=== PATIENT | male | born 1955 | race American Indian/Alaskan Native ===

== ENCOUNTER 2017-02-22 08:15 | Inpatient (IN) | payer MEDICAID ==
--- NOTE | 2017-02-22 08:46 | XRay Report ---
AP CHEST: HISTORY: Dysrhythmia Borderline cardiomegaly and single-lead pacemaker are unchanged since 10/20/15. There is normal pulmonary vascularity. The lungs are clear. The bony thorax is intact. IMPRESSION: Borderline heart size. Lungs clear.
[2017-02-22 09:05] LABS: Basophils % (Auto) 0.9 % (0.0-1.8); Eosinophils % (Auto) 3.4 % (0.0-4.3); Hematocrit 42.3 % (35.5-45.6); Hemoglobin 13.6 gm/dl (11.8-15.2); Mean Corpuscular HGB Conc 32 % (32-34); Mean Corpuscular Hemoglobin 28 pg (28-32); Mean Corpuscular Volume 88 fl (84-94); Platelet Count 149 K/mm3 (140-440); Red Blood Count 4.84 M/mm3 (3.65-5.03); Red Cell Distribution Width 13.3 % (13.2-15.2); White Blood Count 5.5 K/mm3 (4.5-11.0)
[2017-02-22 09:23] LABS: Anion Gap 19 mmol/L; BUN/Creatinine Ratio 13.75; Blood Urea Nitrogen 22 mg/dL (9-20); Calcium 8.9 mg/dL (8.4-10.2); Carbon Dioxide 20 mmol/L (22-30); Chloride 101.8 mmol/L (98-107); Glucose 350 mg/dL (75-100); Magnesium 1.6 mg/dL (1.7-2.3); Potassium 3.9 mmol/L (3.6-5.0); Sodium 137 mmol/L (137-145)
--- NOTE | 2017-02-22 10:44 | Admit Criteria Form ---
Admission Criteria Documentation: TELEMETRY CARE Telemetry Admission Guidelines (Place 'X' for any and all applicable criteria): Admission to telemetry [A] may be indicated for ANY ONE of the following(1)(2)(3 )(4)(5): [X ]I. Cardiac disease, including ANY ONE of the following (9)(10)(11)(12)( 13): [ ]a) Postacute ID [ ]b) Low-risk patients with ST-segment elevation ID who have undergone successful percutaneous coronary intervention [ ]c) Unstable angina [ ]d) Suspected ID (until it is ruled out) [ ]e) Post cardiac surgery (first 48 to 72 hours unless complications occur) [ X]f) Acute arrhythmias (including significant tachycardia or bradycardia) [B] [X ]g) Firing of an implantable cardioverter defibrillator [C] [ ]h) Suspected pacemaker or implantable cardioverter defibrillator malfunction (10) [ ]i) New administration or adjustment of an antiarrhythmic drug [D ] [ ]j) Child admitted for acute congestive heart failure [ ]j) Long QT syndrome [ ]k) Advanced heart block (eg, second-degree Mobitz type II, third- degree heart block) [ ]l) Acute myocarditis or pericarditis [ ]m) Short-term (ambulatory or inpatient) monitoring after a cardiac procedure as indicated by ANY ONE of the following [E]: [ ]i) Electrophysiologic studies [ ]ii) Percutaneous coronary intervention with stent placement [ ]iii) Pacemaker placement with cardiac conduction defect [ ]iv) Implantable cardiac defibrillator placement [ ]II. Drug overdose or poisoning with substance that causes arrhythmias or QT prolongation (eg, phenothiazines, sympathomimetic agents, cyclic antidepressants, digitalis, antiarrhythmic drugs)(15) [ ]III. Short-term (ambulatory or inpatient) monitoring after therapeutic or diagnostic procedure requiring conscious sedation or anesthesia (eg, endoscopy, elective cardioversion) [ ]IV. Acute cerebrovascular even[F](18) [ ]V. Massive blood transfusion (eg, at least 10 units of packed red blood cells in 24 hours) [ ]. Variceal bleeding after endoscopy, sclerotherapy, or IV vasopressin [ ]VII. Uncorrected electrolyte abnormalities associated with an increased risk of dangerous arrhythmia [G]; examples include [ ]a) Hyperkalemia with attributable ECG changes [ ]b) Potassium greater than 6.5 mmol/L (mEq/L) in a patient without history of chronic renal disease [ ]c) Prolonged QT attributed to hypokalemia, hypomagnesemia, or hypocalcemia [ ]VIII.Unexplained syncope or other neurologic event suspected of being due to arrhythmia due to a finding that increases risk; examples include(19)(20)(21): [ ]a) High-risk ECG findings (eg, bifascicular block, bradycardia, abnormal QT interval, ventricular pre- excitation) [ ]b) History of previous syncope due to arrhythmia [ ]c) Abnormal ventricular function (eg, reduced ejection fraction ) [ ]d) Exertional or supine syncope [ ]e) Concerning syncope characteristics (eg, sudden loss of consciousness without prodrome) [ ]f) Family history of sudden [ ]g) Use of arrhythmogenic medication [ ]h) Suspected cardiac ischemia [ ]i) Known channelopathy (eg, long QT syndrome, Brugada syndrome, or catecholaminergic paroxysmal ventricular tachycardia) [ ]j) Known structural heart disease (eg, hypertrophic cardiomyopathy , severe valvular disease) [ ]k) Palpitations preceding syncope The original [employer] content created by [employer] has been revised. The portions of the content which have been revised are identified through the use of italic text or in bold, and [employer] [facility] [employer] has neither reviewed nor approved the modified material. All other unmodified content is copyright [employer]. Please see references footnoted in the original [employer] edition 2016 Admission Criteria Met: Yes
--- NOTE | 2017-02-22 10:56 | Emergency Department Report ---
ED Palpitations HPI - General Chief Complaint: Dizziness Stated Complaint: SOB Time Seen by Provider: 02/22/17 08:27 Source: patient, EMS Mode of arrival: Stretcher Limitations: No Limitations - History of Present Illness Initial Comments: 61-year-old male presented to the emergency department via EMS for evaluation of his defibrillator shocking him. Patient states that this morning an approximate 7 AM he walked his granddaughter to the school bus stop. He began having some dizziness and difficulty breathing. He was able to go back inside. He states he sat on the couch and was shocked one time. He denies chest pain or palpitations. He states after he was shocked, his symptoms completely resolved. He has no complaints at this time. -: Sudden, This morning Context: AICD discharge Arrythmia History: atrial fibrillation, AICD Associated Symptoms: shortness of breath, near-syncope - Related Data Previous Rx's Medication Instructions Recorded Last Taken Type Aspirin [Aspirin BABY CHEW TAB] 81 mg PO QDAY #30 tab.chew 10/17/15 Unknown Rx Carvedilol [Coreg] 25 mg PO BID #60 tablet 10/17/15 Unknown Rx Furosemide [Lasix TAB] 40 mg PO 0600,1800 #60 tablet 10/17/15 Unknown Rx Lisinopril [Zestril TAB] 40 mg PO QDAY #30 tablet 10/17/15 Unknown Rx Multivit-Min/Iron Fum/Folic AC 1 each PO QDAY #30 tablet 10/17/15 Unknown Rx [Ysvxn-Eqcblzv-Hosgrurd Tablet] Spironolactone [Aldactone] 50 mg PO QDAY #30 tablet 10/17/15 Unknown Rx Colchicine [Colcrys] 0.6 mg PO DAILY #4 tablet 11/21/15 Unknown Rx Oxycodone HCl/Acetaminophen 1 each PO Q6HR PRN #15 tablet 11/21/15 Unknown Rx [Percocet 7.5/325 mg] Cyclobenzaprine HCl [Flexeril 5 MG 5 mg PO TID #12 tab 05/04/16 Unknown Rx TAB] Naproxen [Naprosyn TAB] 375 mg PO BID #20 tablet 05/04/16 Unknown Rx Allergies Allergy/AdvReac Type Severity Reaction Status Date / Time Penicillins AdvReac Unknown Verified 11/21/15 12:23 ED Review of Systems ROS: Stated complaint: SOB Other details as noted in HPI Comment: All other systems reviewed and negative Respiratory: shortness of breath Cardiovascular: syncope (dizziness, no loss of consciousness) ED Past Medical Hx - Past Medical History Previous Medical History?: Yes Hx Hypertension: Yes Hx Congestive Heart Failure: Yes Hx Diabetes: Yes Hx Renal Disease: Yes - Surgical History Past Surgical History?: Yes Hx Internal Defibrillator: Yes Additional Surgical History: HERNIA REPAIR - Family History Family history: no significant - Social History Smoking Status: Never Smoker Substance Use Type: None - Medications Home Medications: Home Medications Medication Instructions Recorded Confirmed Last Taken Type Aspirin [Aspirin BABY CHEW TAB] 81 mg PO QDAY #30 tab.chew 10/17/15 Unknown Rx Carvedilol [Coreg] 25 mg PO BID #60 tablet 10/17/15 Unknown Rx Furosemide [Lasix TAB] 40 mg PO 0600,1800 #60 tablet 10/17/15 Unknown Rx Lisinopril [Zestril TAB] 40 mg PO QDAY #30 tablet 10/17/15 Unknown Rx Multivit-Min/Iron Fum/Folic AC 1 each PO QDAY #30 tablet 10/17/15 Unknown Rx [Ozhtx-Drqltwj-Kakqnniq Tablet] Spironolactone [Aldactone] 50 mg PO QDAY #30 tablet 10/17/15 Unknown Rx Colchicine [Colcrys] 0.6 mg PO DAILY #4 tablet 11/21/15 Unknown Rx Oxycodone HCl/Acetaminophen 1 each PO Q6HR PRN #15 tablet 11/21/15 Unknown Rx [Percocet 7.5/325 mg] Cyclobenzaprine HCl [Flexeril 5 MG 5 mg PO TID #12 tab 05/04/16 Unknown Rx TAB] Naproxen [Naprosyn TAB] 375 mg PO BID #20 tablet 05/04/16 Unknown Rx ED Physical Exam - General Limitations: No Limitations General appearance: alert, in no apparent distress - Head Head exam: Present: atraumatic, normocephalic - Eye Eye exam: Present: normal appearance, PERRL, EOMI - ENT ENT exam: Present: normal exam, normal orophraynx, mucous membranes moist - Neck Neck exam: Present: normal inspection, full ROM. Absent: tenderness - Respiratory Respiratory exam: Present: normal lung sounds bilaterally. Absent: respiratory distress - Cardiovascular Cardiovascular Exam: Present: tachycardia, irregular rhythm, normal heart sounds - GI/Abdominal GI/Abdominal exam: Present: soft, normal bowel sounds. Absent: distended, tenderness - Extremities Exam Extremities exam: Present: normal inspection, full ROM. Absent: tenderness - Back Exam Back exam: Present: normal inspection, full ROM. Absent: tenderness - Neurological Exam Neurological exam: Present: alert, oriented X3. Absent: motor sensory deficit - Skin Skin exam: Present: warm, dry, intact ED Course Vital Signs 02/22/17 02/22/17 02/22/17 08:29 08:40 09:00 Temperature 98.2 F Pulse Rate 150 H 105 H 97 H Respiratory 18 16 18 Rate Blood Pressure 159/118 Blood Pressure 138/87 148/95 [Left] O2 Sat by Pulse 100 100 Oximetry 02/22/17 02/22/17 10:00 10:08 Temperature 98 F Pulse Rate 99 H 99 H Respiratory 18 Rate Blood Pressure Blood Pressure 157/117 [Left] O2 Sat by Pulse 97 Oximetry ED Medical Decision Making - Lab Data Result diagrams: 02/22/17 08:47 02/22/17 08:47 - EKG Data -: EKG Interpreted by Me EKG shows normal: axis, intervals, QRS complexes, ST-T waves Rate: tachycardia - EKG Data When compared to previous EKG there are: previous EKG unavailable Interpretation: other (atrial fibrillation with rapid ventricular response) - Medical Decision Making Lab results reviewed. Patient's ICD has been interrogated and reveals the patient had a single ICD discharge for a supraventricular tachycardia with a rate slightly over 200. It appears there were also several attempts at overdrive pacing. This was discussed with the on-call provider for [facility]. Patient is to be admitted by the hospitalist for observation. - Differential Diagnosis supraventricular tachycardia, ventricular tachycardia, atrial fibrillation Critical care attestation.: If time is entered above; I have spent that time in minutes in the direct care of this critically ill patient, excluding procedure time. ED Disposition Clinical Impression: Supraventricular tachycardia, AICD discharge Disposition: OP ADMITTED IP TO THIS HOSP Is pt being admited?: Yes Condition: Stable Referrals: PRIMARY CARE, [Primary Care Provider] - 3-5 Days Time of Disposition: 10:57
[2017-02-22] MEDS ORDERED: NON-FORMULARY (Oxycodone Hcl/Acetaminophen [Percocet 7.5/325 Mg] 1 EACH) PO PRN (12:19)
[2017-02-22] MEDS ORDERED: TYLENOL PO PRN (12:21)
[2017-02-22] MEDS ORDERED: MILK OF MAGNESIA PO PRN (12:21)
[2017-02-22] MEDS ORDERED: ZOFRAN IV PRN (12:21)
[2017-02-22] MEDS ORDERED: DULCOLAX PR PRN (12:21)
[2017-02-22] MEDS ORDERED: D50W (25GM) IV PRN (12:22)
--- NOTE | 2017-02-22 12:28 | History and Physical Report ---
History of Present Illness Date of admission: 02/22/17 11:07 Chief complaint: AICD fired and shocked him History of present illness: 61-year-old man with a past medical history of CHF, systolic, EF of 10% status post AICD placement, who states that he had walked his granddaughter to the bus stop at around 7 AM and shortly after walking back he felt dizzy short of breath and his AICD fired and shocked him. This prompted him to come into the ER, he denies chest pain, denies palpitations, denies shortness of breath at this time. Past History Past Medical History: other (hypertension, diabetes, gallops, CHF EF 10% status post AICD, CTD stage III Baseline creatinine of 1.6) Past Surgical History: hernia repair, Other (ICD placements) Social history: no significant social history Family history: hypertension Medications and Allergies Allergies Allergy/AdvReac Type Severity Reaction Status Date / Time Penicillins AdvReac Unknown Verified 11/21/15 12:23 Home Medications Medication Instructions Recorded Confirmed Last Taken Type Aspirin [Aspirin BABY CHEW TAB] 81 mg PO QDAY #30 tab.chew 10/17/15 Unknown Rx Carvedilol [Coreg] 25 mg PO BID #60 tablet 10/17/15 Unknown Rx Furosemide [Lasix TAB] 40 mg PO 0600,1800 #60 tablet 10/17/15 Unknown Rx Lisinopril [Zestril TAB] 40 mg PO QDAY #30 tablet 10/17/15 Unknown Rx Multivit-Min/Iron Fum/Folic AC 1 each PO QDAY #30 tablet 10/17/15 Unknown Rx [Syxwc-Pnlnbiu-Rgdemmcq Tablet] Spironolactone [Aldactone] 50 mg PO QDAY #30 tablet 10/17/15 Unknown Rx Colchicine [Colcrys] 0.6 mg PO DAILY #4 tablet 11/21/15 Unknown Rx Oxycodone HCl/Acetaminophen 1 each PO Q6HR PRN #15 tablet 11/21/15 Unknown Rx [Percocet 7.5/325 mg] Cyclobenzaprine HCl [Flexeril 5 MG 5 mg PO TID #12 tab 05/04/16 Unknown Rx TAB] Naproxen [Naprosyn TAB] 375 mg PO BID #20 tablet 05/04/16 Unknown Rx Active Meds: Active Medications Aspirin (Baby Aspirin) 81 mg PO QDAY [facility] Carvedilol (Coreg) 25 mg PO BID [facility] Colchicine (Colcrys) 0.6 mg PO DAILY [facility] Furosemide (Lasix) 40 mg PO 0600,1800 [facility] Lisinopril (Zestril) 40 mg PO QDAY [facility] Miscellaneous Medication (Cyclobenzaprine Hcl [Flexeril 5 Mg Tab]) 5 mg PO TID [facility] Miscellaneous Medication (Multivit-Min/Iron Fum/Folic Ac [Multi-Vitamin- Minerals Tablet]) 1 each PO QDAY [facility] Miscellaneous Medication (Oxycodone Hcl/Acetaminophen [Percocet 7.5/325 Mg]) 1 each PO Q6HR PRN PRN Reason: Pain Spironolactone (Aldactone) 50 mg PO QDAY [facility] Review of Systems All systems: negative Constitutional: weakness Exam - Constitutional Vitals: Temp Pulse Resp BP Pulse Ox 98 F 99 H 18 157/117 97 02/22/17 10:00 02/22/17 10:08 02/22/17 10:00 02/22/17 10:00 02/22/17 10:00 General appearance: Present: no acute distress, well-nourished - EENT Eyes: Present: PERRL ENT: hearing intact, clear oral mucosa - Neck Neck: Present: supple, normal ROM - Respiratory Respiratory effort: normal Respiratory: bilateral: CTA - Cardiovascular Heart Sounds: Present: S1 & S2. Absent: rub, click - Extremities Extremities: pulses symmetrical Extremity abnormal: edema (3 plus pitting bilateral bipedal edema) Peripheral Pulses: within normal limits - Abdominal General gastrointestinal: Present: soft, non-tender, non-distended, normal bowel sounds Male genitourinary: Present: normal - Integumentary Integumentary: Present: clear, warm, dry (chronic skin changes consistent with chronic stasis) - Musculoskeletal Musculoskeletal: gait normal, strength equal bilaterally - Psychiatric Psychiatric: appropriate mood/affect, intact judgment & insight - Neurologic Neurologic: CNII-XII intact, moves all extremities Results - Labs CBC & Chem 7: 02/22/17 08:47 02/22/17 08:47 Labs: Laboratory Last Values WBC 5.5 K/mm3 (4.5-11.0) 02/22/17 08:47 RBC 4.84 M/mm3 (3.65-5.03) 02/22/17 08:47 Hgb 13.6 gm/dl (11.8-15.2) 02/22/17 08:47 Hct 42.3 % (35.5-45.6) 02/22/17 08:47 MCV 88 fl (84-94) 02/22/17 08:47 MCH 28 pg (28-32) 02/22/17 08:47 MCHC 32 % (32-34) 02/22/17 08:47 RDW 13.3 % (13.2-15.2) 02/22/17 08:47 Plt Count 149 K/mm3 (140-440) 02/22/17 08:47 Lymph % (Auto) 24.2 % (13.4-35.0) 02/22/17 08:47 Todd % (Auto) 9.0 % (0.0-7.3) H 02/22/17 08:47 Eos % (Auto) 3.4 % (0.0-4.3) 02/22/17 08:47 Baso % (Auto) 0.9 % (0.0-1.8) 02/22/17 08:47 Lymph # 1.3 K/mm3 (1.2-5.4) 02/22/17 08:47 Todd # 0.5 K/mm3 (0.0-0.8) 02/22/17 08:47 Eos # 0.2 K/mm3 (0.0-0.4) 02/22/17 08:47 Baso # 0.1 K/mm3 (0.0-0.1) 02/22/17 08:47 Seg Neutrophils % 62.5 % (40.0-70.0) 02/22/17 08:47 Seg Neutrophils # 3.4 K/mm3 (1.8-7.7) 02/22/17 08:47 Sodium 137 mmol/L (137-145) 02/22/17 08:47 Potassium 3.9 mmol/L (3.6-5.0) 02/22/17 08:47 Chloride 101.8 mmol/L (98-107) 02/22/17 08:47 Carbon Dioxide 20 mmol/L (22-30) L 02/22/17 08:47 Anion Gap 19 mmol/L 02/22/17 08:47 BUN 22 mg/dL (9-20) H 02/22/17 08:47 Creatinine 1.6 mg/dL (0.8-1.5) H 02/22/17 08:47 Estimated GFR 54 ml/min 02/22/17 08:47 BUN/Creatinine Ratio 13.75 % 02/22/17 08:47 Glucose 350 mg/dL (75-100) H 02/22/17 08:47 Calcium 8.9 mg/dL (8.4-10.2) 02/22/17 08:47 Magnesium 1.6 mg/dL (1.7-2.3) L 02/22/17 08:47 Troponin T < 0.010 ng/mL (0.00-0.029) 02/22/17 08:47 - Imaging and Cardiology Chest x-ray: image reviewed (no acute abnormalities) Assessment and Plan Assessment and plan: 61-year-old man with a past medical history of CHF status post ICD placement, who presents after having shortness of breath, dizziness and his AICD shocked him. He was found to be in A. fib with RVR. ICD was interrogated and showed a an episode of SVT with a heart rate over 200 which correlated with the time he was shocked. 1. A. fib with RVR Continue beta anuja, cardiology has been consulted for further management 2. CHF, chronic systolic at baseline, has baseline LE edema, not in exacerbation, continue chronic cardiac meds 3. Diabetes with hyperglycemia not on any meds or insulin at home Insulin sliding scale has been ordered, obtain a1c 4. Gout Continue colchicine 5. Hypertension Continue home meds 6. Hypomagnesemia Goal is to correct his electrolytes prevent any further dysrhythmia, we'll replete magnesium IV and by mouth recheck level in the a.m. Plan of care discussed with patient/family: Yes
[2017-02-22] MEDS ORDERED: NON-FORMULARY (Multivit-Min/Iron Fum/Folic Ac [Multi-Vitamin-Minerals Tablet] 1 EACH) PO SCH (12:30)
[2017-02-22] MEDS ORDERED: MAGNESIUM SULFATE 2GM/50ML 2 GM/50 ML BAG IV ONE (13:30)
[2017-02-22] MEDS ORDERED: NON-FORMULARY (Cyclobenzaprine Hcl [Flexeril 5 Mg Tab] 5 MG) PO SCH (14:00)
[2017-02-22] MEDS: FLEXERIL PO SCH ×2 (14:46→20:27)
[2017-02-22] MEDS: ZESTRIL PO SCH (14:46)
--- NOTE | 2017-02-22 14:54 | Consultation ---
History of Present Illness Consult date: 02/22/17 Consult reason: other (ICD discharge) History of present illness: This is a 61yr old male with a remote history of Dilated Cardiomyopathy. A cardiac cath done in 2012 showed no significant coronary artery disease but a left ventricular ejection fraction of 20% consistent with a nonischemic cardiomyopathy. He also has an indwelling cardiac defibrillator ([employer]). Co-morbidities includes Hypertension, and noncompliance with medications and outpatient cardiac follow up. He presents to the ED with chief complaint of ICD discharge. Patient reports while walking this morning he developed shortness of breath, dizziness, palpitations and shortly thereafter, he received a device shock. Patient denies loss of consciousness. EMS was called and he was brought in for evaluation. Cardiac consultation requested for ICD discharge. His device was interrogated while in the ED and revealed an appropriate ICD shock for SVT. Patient is resting in bed and appears comfortable. He currently has no complaints. He admits to being out of most of his home medications. Past History Past Medical History: heart failure, hypertension, renal failure Past Surgical History: Other (ICD placement) Family history: hypertension Medications and Allergies Allergies Allergy/AdvReac Type Severity Reaction Status Date / Time Penicillins AdvReac Unknown Verified 11/21/15 12:23 Home Medications Medication Instructions Recorded Confirmed Last Taken Type Aspirin [Aspirin BABY CHEW TAB] 81 mg PO QDAY #30 tab.chew 10/17/15 Unknown Rx Carvedilol [Coreg] 25 mg PO BID #60 tablet 10/17/15 Unknown Rx Furosemide [Lasix TAB] 40 mg PO 0600,1800 #60 tablet 10/17/15 Unknown Rx Lisinopril [Zestril TAB] 40 mg PO QDAY #30 tablet 10/17/15 Unknown Rx Multivit-Min/Iron Fum/Folic AC 1 each PO QDAY #30 tablet 10/17/15 Unknown Rx [Vkwdl-Nsafdjm-Bohlclwz Tablet] Spironolactone [Aldactone] 50 mg PO QDAY #30 tablet 10/17/15 Unknown Rx Colchicine [Colcrys] 0.6 mg PO DAILY #4 tablet 11/21/15 Unknown Rx Oxycodone HCl/Acetaminophen 1 each PO Q6HR PRN #15 tablet 11/21/15 Unknown Rx [Percocet 7.5/325 mg] Cyclobenzaprine HCl [Flexeril 5 MG 5 mg PO TID #12 tab 05/04/16 Unknown Rx TAB] Naproxen [Naprosyn TAB] 375 mg PO BID #20 tablet 05/04/16 Unknown Rx Active Meds: Active Medications Acetaminophen (Tylenol) 650 mg PO Q4H PRN PRN Reason: Pain MILD(1-3)/Fever >100.5/MIX Aspirin (Baby Aspirin) 81 mg PO QDAY [facility] Bisacodyl (Dulcolax) 10 mg [place] QDAY PRN PRN Reason: Constipation unrelieved by MOM Carvedilol (Coreg) 25 mg PO BID [facility] Colchicine (Colcrys) 0.6 mg PO DAILY [facility] Cyclobenzaprine HCl (Flexeril) 5 mg PO TID [facility] Last Admin: 02/22/17 14:46 Dose: 5 mg Dextrose (D50w (25gm)) 50 ml IV PRN PRN PRN Reason: Hypoglycemia Enoxaparin Sodium (Lovenox) 40 mg SUB-Q QDAY@2200 [facility] Furosemide (Lasix) 40 mg PO 0600,1800 [facility] Magnesium Sulfate (Magnesium Sulfate 2gm/50ml) 2 gm in 50 mls @ 25 mls/hr IV ONCE ONE Stop: 02/22/17 15:29 Last Admin: 02/22/17 13:23 Dose: 25 mls/hr Insulin Aspart (Novolog) 0 units SUB-Q ACHS [facility] PRN Reason: Protocol Lisinopril (Zestril) 40 mg PO QDAY [facility] Last Admin: 02/22/17 14:46 Dose: 40 mg Magnesium Hydroxide (Milk Of Magnesia) 30 ml PO Q4H PRN PRN Reason: Constipation Magnesium Oxide (Mag-Ox) 400 mg PO QDAY [facility] Multivitamins (Theragran Tab) 1 each PO DAILY [facility] Ondansetron HCl (Zofran) 4 mg IV Q8H PRN PRN Reason: N/V unrelieved by Reglan Oxycodone/Acetaminophen (Percocet 5/325) 1.5 tab PO Q6H PRN PRN Reason: Pain Spironolactone (Aldactone) 50 mg PO QDAY [facility] Physical Examination Vital Signs Temp Pulse Resp BP Pulse Ox 98.2 F 150 H 18 159/118 100 02/22/17 08:29 02/22/17 08:29 02/22/17 08:29 02/22/17 08:29 02/22/17 08:29 General appearance: no acute distress HEENT: Positive: PERRL Neck: Positive: trachea midline Cardiac: Positive: Reg Rate and Rhythm Lungs: Positive: Decreased Breath Sounds Neuro: Positive: Grossly Intact Results 02/22/17 08:47 02/22/17 08:47 Assessment and Plan AICD discharge interrogated revealed an appropriate ICD shock for SVT. Dilated Nonischemic Cardiomyopathy EF 10-15% on echo 2014 Presence of ACID ([employer]) Hypertension Noncompliance with medications
[2017-02-22] MEDS: NOVOLOG SUB-Q SCH (16:56)
[2017-02-22] MEDS: LASIX PO SCH (18:36)
[2017-02-22] MEDS: COREG PO SCH (22:19)
[2017-02-22] MEDS: LOVENOX SUB-Q SCH (22:21)
[2017-02-23] MEDS: NOVOLOG SUB-Q SCH ×5 (00:20→22:31)
[2017-02-23] MEDS: LASIX PO SCH ×2 (06:26→17:21)
[2017-02-23] MEDS: FLEXERIL PO SCH ×3 (08:33→20:26)
[2017-02-23] MEDS: COLCRYS PO SCH (09:44)
[2017-02-23] MEDS: ALDACTONE PO SCH (09:44)
[2017-02-23] MEDS: BABY ASPIRIN PO SCH (09:45)
[2017-02-23] MEDS: ZESTRIL PO SCH (09:45)
[2017-02-23] MEDS: THERAGRAN Tab PO SCH (09:46)
[2017-02-23] MEDS: MAG-OX PO SCH (09:46)
[2017-02-23] MEDS: COREG PO SCH ×3 (09:46→22:06)
[2017-02-23] MEDS ORDERED: FLUARIX QUAD 2016-2017(36 MOS+) IM ONE (12:00)
--- NOTE | 2017-02-23 16:52 | Progress Note ---
Assessment and Plan - Patient Problems (1) AICD discharge Current Visit: Yes Status: Acute Plan to address problem: Patient is a 61-year-old man with a history of a dilated nonischemic cardiomyopathy and chronic systolic heart failure. On a cardiac catheterization in 2012, there was no significant coronary artery disease. His left ventricle ejection fraction has been estimated at between 10 and 20% on left ventricular angiography and echocardiography. He has an AICD in situ. He is noncompliant with medical therapy, and follow-up visits. He has not been taking his heart failure medications for several months. He is admitted at this time following a defibrillator discharge. Interrogation of the device revealed an inappropriate shock for a supraventricular tachyarrhythmia rate of the tachycardia was 182 bpm.. The initial EKG in the emergency room was a sinus or atrial tachycardia at 152 bpm. The VT detection zone of the device has been adjusted by the diesel technician, and the patient currently feels well, in a stable sinus rhythm at 85, looks and feels well. There have been no signs or symptoms of heart failure. He is stable for cardiac discharge on routine heart failure therapy including beta blockers, afterload reducing agents, oral antiplatelet therapy. Subjective Date of service: 02/23/17 Interval history: Patient is a 61-year-old man with a history of a dilated nonischemic cardiomyopathy and chronic systolic heart failure. On a cardiac catheterization in 2012, there was no significant coronary artery disease. His left ventricle ejection fraction has been estimated at between 10 and 20% on left ventricular angiography and echocardiography. He has an AICD in situ. He is noncompliant with medical therapy, and follow-up visits. He has not been taking his heart failure medications for several months. He is admitted at this time following a defibrillator discharge. Interrogation of the device revealed an inappropriate shock for a supraventricular tachyarrhythmia rate of the tachycardia was 182 bpm.. The initial EKG in the emergency room was a sinus or atrial tachycardia at 152 bpm. The VT detection zone of the device has been adjusted by the diesel technician, and the patient currently feels well, in a stable sinus rhythm at 85, looks and feels well. There have been no signs or symptoms of heart failure. Objective Vital Signs Temp Pulse Pulse Resp BP BP BP 02/23/17 09:45 80 123/81 02/23/17 09:44 80 123/81 02/23/17 09:17 85 02/23/17 04:00 97.7 F 80 20 128/85 02/23/17 01:27 98.2 F 79 20 120/85 02/22/17 22:19 84 154/104 02/22/17 21:28 98.9 F 86 18 158/104 02/22/17 19:13 172/114 02/22/17 18:00 167 H 02/22/17 17:21 98 H 16 110/91 02/22/17 17:11 96 H 16 110/91 02/22/17 17:06 98.3 F 84 16 145/92 02/22/17 17:01 93 H 16 110/91 02/22/17 16:51 91 H 11 L 145/92 Pulse Ox 02/23/17 09:45 02/23/17 09:44 02/23/17 09:17 02/23/17 04:00 99 02/23/17 01:27 98 02/22/17 22:19 02/22/17 21:28 02/22/17 19:13 02/22/17 18:00 02/22/17 17:21 96 02/22/17 17:11 97 02/22/17 17:06 97 02/22/17 17:01 96 02/22/17 16:51 97 - Physical Examination General: No Apparent Distress HEENT: Positive: PERRL Neck: Positive: trachea midline Cardiac: Positive: Reg Rate and Rhythm Lungs: Positive: Decreased Breath Sounds Neuro: Positive: Grossly Intact Abdomen: Positive: Soft Skin: Positive: Clear Extremities: Absent: edema
--- NOTE | 2017-02-23 19:14 | Progress Note ---
Assessment and Plan Assessment and plan: AICD discharge. Cardiology to evaluate Chronic systolic CHF, cardiomyopathy. s/p AICD in place.On Coreg, Lisinopril Diabetes mellitus type 2. Fingerstic Qac and HS Hypertension. BP stable. DVT prophylaxis with [place] Hospitalist Physical - Physical exam Narrative exam: Gen: Not in acute distress,obese HEENT: Normocephalic, atraumatic Neck: supple, no JVD Lungs:Lungs clear to auscultation, bilaterally, no crackles or wheeze Heart S1-S2 regular, no murmurs rubs or gallop, Abdomen: soft, non tender, non distended,normal bowel sounds present Ext: No edema, no clubbing, no cyanosis Neuro: Awake.alert, oriented x 3, non focal - Constitutional Vitals: Temp Pulse Resp BP Pulse Ox 97.7 F 80 20 123/81 99 02/23/17 04:00 02/23/17 09:45 02/23/17 04:00 02/23/17 09:45 02/23/17 04:00 General appearance: Present: no acute distress Results - Labs CBC & Chem 7: 02/22/17 08:47 02/22/17 08:47 Labs: Laboratory Last Values WBC 5.5 K/mm3 (4.5-11.0) 02/22/17 08:47 RBC 4.84 M/mm3 (3.65-5.03) 02/22/17 08:47 Hgb 13.6 gm/dl (11.8-15.2) 02/22/17 08:47 Hct 42.3 % (35.5-45.6) 02/22/17 08:47 MCV 88 fl (84-94) 02/22/17 08:47 MCH 28 pg (28-32) 02/22/17 08:47 MCHC 32 % (32-34) 02/22/17 08:47 RDW 13.3 % (13.2-15.2) 02/22/17 08:47 Plt Count 149 K/mm3 (140-440) 02/22/17 08:47 Lymph % (Auto) 24.2 % (13.4-35.0) 02/22/17 08:47 [place] % (Auto) 9.0 % (0.0-7.3) H 02/22/17 08:47 Eos % (Auto) 3.4 % (0.0-4.3) 02/22/17 08:47 Baso % (Auto) 0.9 % (0.0-1.8) 02/22/17 08:47 Lymph # 1.3 K/mm3 (1.2-5.4) 02/22/17 08:47 [place] # 0.5 K/mm3 (0.0-0.8) 02/22/17 08:47 Eos # 0.2 K/mm3 (0.0-0.4) 02/22/17 08:47 Baso # 0.1 K/mm3 (0.0-0.1) 02/22/17 08:47 Seg Neutrophils % 62.5 % (40.0-70.0) 02/22/17 08:47 Seg Neutrophils # 3.4 K/mm3 (1.8-7.7) 02/22/17 08:47 Sodium 137 mmol/L (137-145) 02/22/17 08:47 Potassium 3.9 mmol/L (3.6-5.0) 02/22/17 08:47 Chloride 101.8 mmol/L (98-107) 02/22/17 08:47 Carbon Dioxide 20 mmol/L (22-30) L 02/22/17 08:47 Anion Gap 19 mmol/L 02/22/17 08:47 BUN 22 mg/dL (9-20) H 02/22/17 08:47 Creatinine 1.6 mg/dL (0.8-1.5) H 02/22/17 08:47 Estimated GFR 54 ml/min 02/22/17 08:47 BUN/Creatinine Ratio 13.75 % 02/22/17 08:47 Glucose 350 mg/dL (75-100) H 02/22/17 08:47 POC Glucose 210 (70-105) H 02/22/17 23:11 Calcium 8.9 mg/dL (8.4-10.2) 02/22/17 08:47 Magnesium 1.8 mg/dL (1.7-2.3) 02/23/17 04:27 Troponin T < 0.010 ng/mL (0.00-0.029) 02/22/17 08:47
[2017-02-23] MEDS: LOVENOX SUB-Q SCH ×2 (20:26→22:06)
[2017-02-24] MEDS: LASIX PO SCH (05:50)
--- NOTE | 2017-02-24 08:01 | Discharge Summary ---
Providers - Providers Date of Admission: 02/22/17 11:07 Date of discharge: 02/24/17 Attending physician: ULISES DUGGAN Primary care physician: YENIFER PEARCE MD Hospitalization Condition: Good Disposition: DISCHARGED TO HOME OR SELFCARE - Discharge Diagnoses (1) AICD discharge Status: Acute (2) Supraventricular tachycardia Status: Acute Exam - Constitutional Vitals: Temp Pulse Resp BP Pulse Ox 98.4 F 68 20 116/84 99 02/24/17 04:00 02/24/17 04:00 02/24/17 04:00 02/24/17 04:00 02/24/17 04:00 Plan Activity: advance as tolerated Diet: low fat, low cholesterol, low salt Additional Instructions: 1.Follow up with PCP in 1 week. 2.Follow up with Dr. Gonsales, cardiology in 1 week Follow up with: PRIMARY CAREMD [Primary Care Provider] - 3-5 Days
[2017-02-24] MEDS: PERCOCET 5/325 PO PRN ×2 (08:25→13:34)
[2017-02-24 08:41] VITALS: BP 130/84
[2017-02-24] MEDS: COLCRYS PO SCH (09:04)
[2017-02-24] MEDS: COREG PO SCH (09:04)
[2017-02-24] MEDS: ALDACTONE PO SCH (09:05)
[2017-02-24] MEDS: THERAGRAN Tab PO SCH (09:05)
[2017-02-24] MEDS: FLEXERIL PO SCH (09:05)
[2017-02-24] MEDS: BABY ASPIRIN PO SCH (09:05)
[2017-02-24] MEDS: ZESTRIL PO SCH (09:05)
[2017-02-24] MEDS: MAG-OX PO SCH (09:05)
[2017-02-24] MEDS: NOVOLOG SUB-Q SCH ×2 (09:06→13:35)
== END 2017-02-24 14:23 | disposition home or self-care (01) | DRG 309 ==
LOC: ED 08:15 → 4A 11:07
PROVIDERS: ADMIT Internal Medicine; ATTEND Internal Medicine
PROC: 4B02XTZ Measurement of Cardiac Defibrillator, External Approach (ICD-10-PCS; principal; 2017-02-22)
PROC: 3E0234Z Introduction of Serum, Toxoid and Vaccine into Muscle, Percutaneous Approach (ICD-10-PCS; 2017-02-22)
DX: I47.1 Supraventricular tachycardia (principal); I50.22 Chronic systolic (congestive) heart failure; I42.0 Dilated cardiomyopathy; I11.0 Hypertensive heart disease with heart failure; E11.65 Type 2 diabetes mellitus with hyperglycemia; I48.91 Unspecified atrial fibrillation; M10.9 Gout, unspecified; I25.10 Atherosclerotic heart disease of native coronary artery without angina pectoris; E83.42 Hypomagnesemia; Z95.810 Presence of automatic (implantable) cardiac defibrillator; Z91.14 Patient's other noncompliance with medication regimen; Z88.0 Allergy status to penicillin; Z82.49 Family history of ischemic heart disease and other diseases of the circulatory system; Z23 Encounter for immunization
CPT/HCPCS: 36415; 71010; 80048; 82962; 83735; 84484; 85025; 90686; 93005; 93010; 96365; 96366; J1650; J1815; J3475

== ENCOUNTER 2018-08-02 19:07 | Inpatient (IN) | payer MEDICAID ==
[2018-08-02 20:04] LABS: Basophils # (Auto) 0.1 K/mm3 (0.0-0.1); Basophils % (Auto) 0.8 % (0.0-1.8); Eosinophils # (Auto) 0.1 K/mm3 (0.0-0.4); Eosinophils % (Auto) 1.4 % (0.0-4.3); Hemoglobin 15.2 gm/dl (11.8-15.2); Lymphocytes # (Auto) 1.4 K/mm3 (1.2-5.4); Lymphocytes % (Auto) 20.3 % (13.4-35.0); Mean Corpuscular HGB Conc 33 % (32-34); Mean Corpuscular Hemoglobin 29 pg (28-32); Mean Corpuscular Volume 88 fl (84-94); Monocytes # (Auto) 0.9 K/mm3 (0.0-0.8); Platelet Count 207 K/mm3 (140-440); Red Blood Count 5.24 M/mm3 (3.65-5.03); Red Cell Distribution Width 13.5 % (13.2-15.2)
[2018-08-02 20:22] LABS: Calcium 8.7 mg/dL (8.4-10.2)
--- NOTE | 2018-08-02 20:59 | Emergency Department Report ---
ED Syncope HPI - General Chief Complaint: Syncope Stated Complaint: SYNCOPE Time Seen by Provider: 08/02/18 20:04 Source: patient - History of Present Illness Initial Comments: 63 yo male presents to the ED following a syncopal episode. Patient was discharged from hospital today. Was admitted on 08/01 for chest pain. Patient had stress test done this morning that was normal. Patient states he went to [facility] to get prescriptions filled. While he was in the store patient reports he became diaphoretic and lightheaded, then passed out. Family witnessed the event. Patient denies chest pain, shortness of breath, palpitations. Pt has AICD in place. Patient denies headache at this time. Had CT scan of head during last ER visit that was normal. Timing/Prior Episodes: single episode today Precipitating Factors: Positive: diaphoresis, lightheadedness. Negative: blurred vision, nausea, rapid heart beat Context: standing Loss of Consciousness: brief (seconds) Current Symptoms: back to normal - Related Data Allergies/Adverse Reactions: Allergies Penicillins Adverse Reaction (Verified 11/21/15 12:23) Unknown Home Medications: Ambulatory Orders Multivit-Min/Iron Fum/Folic AC [Bjuzz-Dctintw-Gdaeoglk Tablet] 1 each PO QDAY # 30 tablet 10/17/15 Acetaminophen [Acetaminophen TAB] 650 mg PO Q4H PRN #30 tablet 08/02/18 Apixaban [Eliquis] 5 mg PO BID #60 tablet 08/02/18 Aspirin [Aspirin BABY CHEW TAB] 81 mg PO QDAY #30 tab.chew 08/02/18 Carvedilol [Coreg] 25 mg PO BID #60 tablet 08/02/18 Colchicine [Colcrys] 0.6 mg PO DAILY #30 tab 08/02/18 Cyclobenzaprine HCl [Flexeril 5 MG TAB] 5 mg PO TID PRN #9 tab 08/02/18 Furosemide [Lasix TAB] 40 mg PO 0600,1800 #60 tablet 08/02/18 Lisinopril [Zestril TAB] 40 mg PO QDAY #30 tablet 08/02/18 Magnesium Oxide [Magnesium] 400 mg PO BID #14 tablet 08/02/18 Spironolactone [Aldactone] 50 mg PO QDAY #30 tablet 08/02/18 ED Review of Systems ROS: Stated complaint: SYNCOPE Other details as noted in HPI Comment: All other systems reviewed and negative Constitutional: denies: chills, fever Respiratory: denies: shortness of breath Cardiovascular: denies: chest pain, palpitations Gastrointestinal: denies: abdominal pain, nausea, vomiting, diarrhea Neurological: other (reports syncope). denies: headache, weakness, numbness ED Past Medical Hx - Past Medical History Hx Hypertension: Yes Hx Congestive Heart Failure: Yes Hx Diabetes: Yes Hx Renal Disease: Yes - Surgical History Hx Internal Defibrillator: Yes Additional Surgical History: HERNIA REPAIR - Social History Smoking Status: Never Smoker Substance Use Type: None - Medications Home Medications: Home Medications Medication Instructions Recorded Confirmed Last Taken Type Multivit-Min/Iron Fum/Folic AC 1 each PO QDAY #30 tablet 10/17/15 08/01/18 1 Day Ago Rx [Ttrwb-Mivgblg-Cnrwzlqq Tablet] ~02/22/17 Acetaminophen [Acetaminophen TAB] 650 mg PO Q4H PRN #30 tablet 08/02/18 Unknown Rx Apixaban [Eliquis] 5 mg PO BID #60 tablet 08/02/18 Unknown Rx Aspirin [Aspirin BABY CHEW TAB] 81 mg PO QDAY #30 tab.chew 08/02/18 Unknown Rx Carvedilol [Coreg] 25 mg PO BID #60 tablet 08/02/18 Unknown Rx Colchicine [Colcrys] 0.6 mg PO DAILY #30 tab 08/02/18 Unknown Rx Cyclobenzaprine HCl [Flexeril 5 MG 5 mg PO TID PRN #9 tab 08/02/18 Unknown Rx TAB] Furosemide [Lasix TAB] 40 mg PO 0600,1800 #60 tablet 08/02/18 Unknown Rx Lisinopril [Zestril TAB] 40 mg PO QDAY #30 tablet 08/02/18 Unknown Rx Magnesium Oxide [Magnesium] 400 mg PO BID #14 tablet 08/02/18 Unknown Rx Spironolactone [Aldactone] 50 mg PO QDAY #30 tablet 08/02/18 Unknown Rx ED Physical Exam - General Limitations: No Limitations General appearance: alert, in no apparent distress - Head Head exam: Present: atraumatic, normocephalic - Eye Eye exam: Present: normal appearance - ENT ENT exam: Present: mucous membranes moist - Neck Neck exam: Present: normal inspection - Respiratory Respiratory exam: Present: normal lung sounds bilaterally. Absent: respiratory distress - Cardiovascular Cardiovascular Exam: Present: regular rate, normal rhythm - GI/Abdominal GI/Abdominal exam: Present: soft. Absent: tenderness - Extremities Exam Extremities exam: Present: normal inspection - Neurological Exam Neurological exam: Present: alert, oriented X3, CN II-XII intact. Absent: motor sensory deficit - Psychiatric Psychiatric exam: Present: normal affect, normal mood - Skin Skin exam: Present: warm, dry, intact, normal color ED Course Vital Signs 08/02/18 08/02/18 08/02/18 19:33 20:00 22:00 Temperature 98.2 F 97.5 F L Pulse Rate 56 L 102 H 96 H Respiratory 20 20 20 Rate Blood Pressure 109/81 Blood Pressure 97/74 91/61 [Right] O2 Sat by Pulse 97 100 98 Oximetry 08/02/18 08/02/18 08/02/18 22:33 22:46 23:10 Temperature Pulse Rate 96 H Respiratory 16 16 18 Rate Blood Pressure Blood Pressure 106/81 [Right] O2 Sat by Pulse 100 100 Oximetry 08/02/18 23:18 Temperature Pulse Rate Respiratory 16 Rate Blood Pressure Blood Pressure [Right] O2 Sat by Pulse Oximetry - Consultations Consultation #1: 08/02/18 21:[address] Perez, appetizer packer. Recommends readmission for another 24 hours. States will see patient ED Medical Decision Making - Lab Data Result diagrams: 08/02/18 19:55 08/02/18 19:55 - EKG Data -: EKG Interpreted by [facility] EKG shows normal: axis, QRS complexes, ST-T waves Rate: normal - EKG Data Interpretation: other (Afib, incomplete LBBB, occasional PVCs) - Radiology Data Radiology results: report reviewed, image reviewed - Medical Decision Making 63-year-old male admitted yesterday for chest pain workup and discharged today. Return to ER for syncopal episode today. EKG shows A. fib, which patient has a history of. Troponin within normal range. Patient back at baseline no neuro deficits at this time. Spoke with Dr. Perez recommends readmission, will see patient. Spoke with Dr. Montalvo hospitalist to admit. Requested a d-dimer be sent on patient. D-dimer was elevated so CTA was ordered, which shows a right- sided PE. Patient to be placed on heparin drip. - Differential Diagnosis arrythmia, vasovagal, ACS, PE Critical Care Time: Yes Critical care time in (mins) excluding proc time.: 35 Critical care attestation.: If time is entered above; I have spent that time in minutes in the direct care of this critically ill patient, excluding procedure time. Critical Care Time: 35 minutes ED Disposition Clinical Impression: Syncope, Pulmonary embolism Disposition: OP ADMIT IP TO THIS HOSP Is pt being admited?: Yes Condition: Stable Time of Disposition: 21:19
[2018-08-02] MEDS ORDERED: NACL 0.9% 500 ML 500 ML IV ONE (21:03)
--- NOTE | 2018-08-02 22:16 | History and Physical Report ---
History of Present Illness History of present illness: 63-year-old man with history of hypertension, diabetes, CHF, chronic kidney disease was just discharged from the hospital today. He returned because while he was at [facility], he felt dizzy, sweaty and passed out for one second. Just had stress test today Review of systems Constitutional: no weight loss, chills, fever Ears, eyes, nose, mouth and throat: no nasal congestion, no nasal discharge, no sinus pressure, no vision change, no red eye. Neck: No neck pain or rigidity. Cardiovascular: no chest pain, palpitations Respiratory: no cough, shortness of breath Gastrointestinal: no abdominal pain hematochezia Genitourinary : no frequency , no hematuria Musculoskeletal: no joint swelling or muscle ache Integumentary: no rash, no pruritis Neurological: no parathesias, no numbness, no focal weakness Endocrine: no cold or heat intolerance, no polyuria or polydipsia Hematologic/Lymphatic: no easy bruising, no easy bleeding, no gland swelling Allergic/Immunologic: no urticaria, no angioedema. PAST MEDICAL HISTORY: hypertension, diabetes, CHF, chronic kidney disease PAST SURGICAL HISTORY: AICD, hernia repair SOCIAL HISTORY: No alcohol, no drugs, tobacco FAMILY HISTORY: Hypertension Medications and Allergies Allergies Allergy/AdvReac Type Severity Reaction Status Date / Time Penicillins AdvReac Unknown Verified 11/21/15 12:23 Home Medications Medication Instructions Recorded Confirmed Last Taken Type Multivit-Min/Iron Fum/Folic AC 1 each PO QDAY #30 tablet 10/17/15 08/01/18 1 Day Ago Rx [Hztwz-Mswpcna-Tehwjjzn Tablet] ~02/22/17 Acetaminophen [Acetaminophen TAB] 650 mg PO Q4H PRN #30 tablet 08/02/18 Unknown Rx Apixaban [Eliquis] 5 mg PO BID #60 tablet 08/02/18 Unknown Rx Aspirin [Aspirin BABY CHEW TAB] 81 mg PO QDAY #30 tab.chew 08/02/18 Unknown Rx Carvedilol [Coreg] 25 mg PO BID #60 tablet 08/02/18 Unknown Rx Colchicine [Colcrys] 0.6 mg PO DAILY #30 tab 08/02/18 Unknown Rx Cyclobenzaprine HCl [Flexeril 5 MG 5 mg PO TID PRN #9 tab 08/02/18 Unknown Rx TAB] Furosemide [Lasix TAB] 40 mg PO 0600,1800 #60 tablet 08/02/18 Unknown Rx Lisinopril [Zestril TAB] 40 mg PO QDAY #30 tablet 08/02/18 Unknown Rx Magnesium Oxide [Magnesium] 400 mg PO BID #14 tablet 08/02/18 Unknown Rx Spironolactone [Aldactone] 50 mg PO QDAY #30 tablet 08/02/18 Unknown Rx Exam - Physical Exam Narrative exam: Gen. appearance: Patient lying in bed, no apparent distress HEENT: Normocephalic, atraumatic, pupils equally round and reactive to light, extraocular movement intact, and no sclericterus,. No JVD or thyromegaly or nodule,neck supple, no carotid bruit ,mucous membranes moist, no exudate or erythema Heart: S1, S2, regular rate and rhythm Lungs: Clear bilaterally, breathing comfortable Abdomen: Positive bowel sounds, non-tender, nondistended, no organomegaly Extremity:no edema cyanosis, clubbing Skin: no rash, dry, warm Neuro: Oriented 3, cranial nerves II-12 intact, speech is fluent, motor and sensory intact - Constitutional Vitals: Temp Pulse Resp BP Pulse Ox 97.5 F L 102 H 20 97/74 100 08/02/18 20:00 08/02/18 20:00 08/02/18 20:00 08/02/18 20:00 08/02/18 20:00 Results - Labs CBC & Chem 7: 08/02/18 19:55 08/02/18 19:55 Labs: Abnormal lab results 08/02/18 08/02/18 08/02/18 Range/Units 19:55 19:55 21:29 RBC 5.24 H (3.65-5.03) M/mm3 Hct 46.0 H (35.5-45.6) % [place] % (Auto) 13.0 H (0.0-7.3) % [place] # 0.9 H (0.0-0.8) K/mm3 D-Dimer 638.22 H (0-234) ng/mlDDU Sodium 132 L (137-145) mmol/L Carbon Dioxide 20 L (22-30) mmol/L Glucose 223 H (75-100) mg/dL - Imaging and Cardiology Chest x-ray: image reviewed CT scan - chest: report reviewed Assessment and Plan Assessment Acute pulmonary emboli Hypertension Diabetes CHF, stable Chronic kidney disease Plan Admit to medicine Continue heparin drip, consult cardiology, check doppler of LE Check orthostatics, fingersticks and initiate insulin signs scale DVT prophylaxis
--- NOTE | 2018-08-02 22:21 | XRay Report ---
FINAL REPORT PROCEDURE: XR CHEST 1V AP TECHNIQUE: Chest radiograph anteroposterior view. CPT 93692 HISTORY: syncope COMPARISON: July 31, 2018 FINDINGS: Heart: Moderate enlargement. Pacemaker or AICD device on the left.. Mediastinum/Vessels: Normal. Lungs/Pleural space: Normal. Bony thorax: No acute osseous abnormality. Life support devices: Monitoring and support devices. IMPRESSION: Cardiac enlargement. No focal infiltrate.
[2018-08-02] MEDS ORDERED: TYLENOL PO ONE (22:26)
[2018-08-02] MEDS ORDERED: SODIUM CHLORIDE FLUSH SYRINGE 10 ML IV PRN (23:09)
[2018-08-02] MEDS ORDERED: ZOFRAN IV PRN (23:09)
[2018-08-02] MEDS ORDERED: TYLENOL PO PRN (23:09)
[2018-08-02] MEDS ORDERED: HEPARIN 10,000 UNITS/10 ML IV ONE (23:31)
--- NOTE | 2018-08-02 23:31 | Cat Scan Report ---
FINAL REPORT PROCEDURE: CT ANGIO CHEST TECHNIQUE: Computerized tomographic angiography of the chest was performed after the IV injection of iodinated nonionic contrast including image processing. The image data was postprocessed using 2-dimensional multiplanar reformatted (MPR) and 3-dimensional (MIP and/or volume rendered) techniques. HISTORY: syncope COMPARISON: Chest x-ray FINDINGS: Heart and pericardium: Pacemaker device on the left. Small pericardial effusion. Coronary artery calcifications.. Thoracic aorta: Atherosclerotic calcifications. Pulmonary vasculature: Diminished enhanced involving right lower lung pulmonary artery consistent with embolism, series 2 images 64 through 71. Lymph nodes: No enlarged thoracic lymph nodes. Lungs: Normal. Pleural space: No effusion, thickening, or pneumothorax. Musculoskeletal structures: Degenerative changes of the spine. Upper abdominal structures: No significant abnormality. IMPRESSION: Pulmonary embolism on the right. Results discussed with Dr. Obrien.
[2018-08-02] MEDS ORDERED: HEPARIN 10,000 UNITS/10 ML ONE (23:41)
[2018-08-02] MEDS ORDERED: D50W (25GM) Syringe IV PRN (23:43)
[2018-08-02] MEDS: HEPARIN/ 0.45% NACL-25,000 UNIT/500 ML 25,000 UNIT/500 ML BAG IV SCH (23:54)
[2018-08-03 00:10] LABS: Creatine Kinase MB 1.8 ng/mL (0.0-4.0)
[2018-08-03 00:40] LABS: INR 1.16 (0.87-1.13)
[2018-08-03 00:41] LABS: Partial Thromboplastin Time 29.8 Sec. (24.2-36.6)
--- NOTE | 2018-08-03 01:24 | Treadmill Report ---
THALLIUM STRESS TEST REPORT REASON FOR STUDY: Left ventricle: Left ventricle is severely dilated. There is a moderate to large, fixed inferior defect, with no reversibility in the resting study. Gated analysis demonstrates severe left ventricular systolic dysfunction with ejection fraction calculated at 11%. CONCLUSION: Evidence of a severe dilated cardiomyopathy, severe left ventricular systolic dysfunction, ejection fraction of 11%. The perfusion study demonstrates a large fixed inferior defect, suggestive of a prior inferior infarct. There is no reversible ischemia demonstrated on this study. Clinical correlation is recommended. [facility]# [id number] CA/NTS
[2018-08-03 07:02] LABS: BUN/Creatinine Ratio 12; Basophils % (Auto) 0.8 % (0.0-1.8); Blood Urea Nitrogen 17 mg/dL (9-20); Calcium 8.4 mg/dL (8.4-10.2); Eosinophils # (Auto) 0.1 K/mm3 (0.0-0.4); Eosinophils % (Auto) 1.7 % (0.0-4.3); Hematocrit 40.5 % (35.5-45.6); Hemoglobin 13.5 gm/dl (11.8-15.2); Hemolysis Index 2; Lymphocytes # (Auto) 1.5 K/mm3 (1.2-5.4); Lymphocytes % (Auto) 26.7 % (13.4-35.0); Mean Corpuscular HGB Conc 33 % (32-34); Mean Corpuscular Hemoglobin 29 pg (28-32); Mean Corpuscular Volume 87 fl (84-94); Monocytes # (Auto) 0.7 K/mm3 (0.0-0.8); Monocytes % (Auto) 13.7 % (0.0-7.3); Platelet Count 192 K/mm3 (140-440); Red Blood Count 4.67 M/mm3 (3.65-5.03); Red Cell Distribution Width 13.5 % (13.2-15.2)
[2018-08-03 07:07] LABS: Creatine Kinase MB 2.1 ng/mL (0.0-4.0)
[2018-08-03] MEDS: HumaLOG SUB-Q SCH ×5 (08:51→22:09)
[2018-08-03] MEDS ORDERED: LOVENOX SUB-Q SCH ×2 (10:00)
--- NOTE | 2018-08-03 10:06 | Consultation ---
History of Present Illness Consult date: 08/03/18 Consult reason: syncope History of present illness: This is a 63 year old male with a history of dilated cardiomyopathy. A cardiac cath done in 2012 showed no significant coronary artery disease but a left ventricular ejection fraction of 20% consistent with a nonischemic cardiomyopathy. He also has an indwelling cardiac defibrillator (Xiimo). He also has a history of paroxysmal atrial fibrillation, noncompliant with oral anticoagulation therapy and outpatient cardiac follow up. Patient is now admitted with syncope. Of note, patient was discharged from this hospital less than 24hrs ago. At that time he was admitted with chest pain. Patient underwent a stress thallium test that reports no reversible ischemia. Patient reports feeling dizzy and diaphoretic just prior to passing out. He denies chest pain, shortness of breath and palpitations just prior to his syncopal episode. He denies AICD discharge. His EKG shows atrial fibrillation with a well controlled ventricular rate. Further evaluation with a chest CTA scan revealed an acute PE. Medications and Allergies Allergies Allergy/AdvReac Type Severity Reaction Status Date / Time Penicillins AdvReac Unknown Verified 11/21/15 12:23 Home Medications Medication Instructions Recorded Confirmed Last Taken Type Multivit-Min/Iron Fum/Folic AC 1 each PO QDAY #30 tablet 10/17/15 08/01/18 1 Day Ago Rx [Nkuma-Qdczkhs-Ficecgld Tablet] ~02/22/17 Acetaminophen [Acetaminophen TAB] 650 mg PO Q4H PRN #30 tablet 08/02/18 Unknown Rx Apixaban [Eliquis] 5 mg PO BID #60 tablet 08/02/18 Unknown Rx Aspirin [Aspirin BABY CHEW TAB] 81 mg PO QDAY #30 tab.chew 08/02/18 Unknown Rx Carvedilol [Coreg] 25 mg PO BID #60 tablet 08/02/18 Unknown Rx Colchicine [Colcrys] 0.6 mg PO DAILY #30 tab 08/02/18 Unknown Rx Cyclobenzaprine HCl [Flexeril 5 MG 5 mg PO TID PRN #9 tab 08/02/18 Unknown Rx TAB] Furosemide [Lasix TAB] 40 mg PO 0600,1800 #60 tablet 08/02/18 Unknown Rx Lisinopril [Zestril TAB] 40 mg PO QDAY #30 tablet 08/02/18 Unknown Rx Magnesium Oxide [Magnesium] 400 mg PO BID #14 tablet 08/02/18 Unknown Rx Spironolactone [Aldactone] 50 mg PO QDAY #30 tablet 08/02/18 Unknown Rx Active Meds: Active Medications Acetaminophen (Tylenol) 650 mg PO Q4H PRN PRN Reason: Pain MILD(1-3)/Fever >100.5/MIX Dextrose (D50w (25gm) Syringe) 50 ml IV PRN PRN PRN Reason: Hypoglycemia Heparin Sodium/Sodium Chloride (Heparin/ 0.45% Nacl-25,000 Unit/500 Ml) 25,000 unit in 500 mls @ 30 mls/hr IV TITR COLTON; Protocol Last Admin: 08/02/18 23:54 Dose: 1,500 units/hr, 30 mls/hr Insulin Human Lispro (Humalog) 0 unit SUB-Q ACHS COLTON; Protocol Last Admin: 08/03/18 08:51 Dose: 3 unit Ondansetron HCl (Zofran) 4 mg IV Q8H PRN PRN Reason: Nausea And Vomiting Sodium Chloride (Sodium Chloride Flush Syringe 10 Ml) 10 ml IV BID COLTON Sodium Chloride (Sodium Chloride Flush Syringe 10 Ml) 10 ml IV PRN PRN PRN Reason: LINE FLUSH Physical Examination Vital Signs Temp Pulse Resp BP Pulse Ox 98.2 F 56 L 20 109/81 97 08/02/18 19:33 08/02/18 19:33 08/02/18 19:33 08/02/18 19:33 08/02/18 19:33 General appearance: no acute distress HEENT: Positive: PERRL Cardiac: Positive: Reg Rate and Rhythm Results 08/03/18 06:16 08/03/18 06:16 Cardiac Enzymes 08/02/18 08/03/18 Range/Units 23:22 06:16 CK-MB (CK-2) 1.8 2.1 (0.0-4.0) ng/mL Coagulation 08/02/18 Range/Units 23:33 PT 15.4 H (12.2-14.9) Sec. INR 1.16 H (0.87-1.13) APTT 29.8 (24.2-36.6) Sec. CBC 08/02/18 08/03/18 Range/Units 19:55 06:16 WBC 6.7 5.4 (4.5-11.0) K/mm3 RBC 5.24 H 4.67 (3.65-5.03) M/mm3 Hgb 15.2 13.5 (11.8-15.2) gm/dl Hct 46.0 H 40.5 (35.5-45.6) % Plt Count 207 192 (140-440) K/mm3 Lymph # 1.4 1.5 (1.2-5.4) K/mm3 [place] # 0.9 H 0.7 (0.0-0.8) K/mm3 Eos # 0.1 0.1 (0.0-0.4) K/mm3 Baso # 0.1 0.0 (0.0-0.1) K/mm3 Comprehensive Metabolic Panel 08/02/18 08/03/18 Range/Units 19:55 06:16 Sodium 132 L 136 L (137-145) mmol/L Potassium 3.8 4.1 (3.6-5.0) mmol/L Chloride 100.1 102.0 (98-107) mmol/L Carbon Dioxide 20 L 22 (22-30) mmol/L BUN 17 17 (9-20) mg/dL Creatinine 1.5 1.4 (0.8-1.5) mg/dL Glucose 223 H 188 H (75-100) mg/dL Calcium 8.7 8.4 (8.4-10.2) mg/dL Assessment and Plan Syncope Acute PE Paroxysmal Afib previously treated with eliquis for oral anticoagulation. Dilated Nonischemic Cardiomyopathy EF 10-15% on echo 2014 no reversible ischemia by MPI 08/02/18 Presence of ACID (Xiimo) Hypertension Noncompliance with medications and outpatient cardiac follow up We will get an AICD interrogation.
[2018-08-03] MEDS: SODIUM CHLORIDE FLUSH SYRINGE 10 ML IV SCH ×2 (11:15→22:08)
--- NOTE | 2018-08-03 15:39 | Progress Note ---
Assessment and Plan Assessment and plan: Patient is a 63 yo man with a history of NIDDM, p. Afib on Eliquis, Cardiomyopathy with AICD and hypertension who I just discharged from the hospital. He returned the same day as discharge due to a syncopal episode. He was at [facility] getting his prescripiton filled when he felt dizzy, sweaty and passed out for one second. * CTA chest reported right lower lung pulmonary embolism Acute RLL pulmonary embolus: Continue heparin drip, consulted cardiology, venous ble doppler negative for DVT NIDDM: accu check and ssi AFib with AICD; restart Coreg and heart rate should improve Nonadherence to medical therapy: child welfare counselor on compliance Hypertension with heart disease: continue medication, child welfare counselor on compliance, low salt/cardiac diet Chronic kidney disease, stage 3: continue to monitor History Interval history: Patient was seen and examined. Follow-up on current diagnosis of syncope. Overnight uneventful. Patient denies any chest pain, shortness breath, nausea/ vomiting or severe headaches. Imaging, nursing note, chart, labs and old chart reviewed. Discussed with patient. Hospitalist Physical - Physical exam Narrative exam: GEN: WDWN, NAD, Awake, Alert, Orientated x 3 HEENT: NCAT, EOMI, PERRL, OP Clear NECK: supple, no adenopathy, no thyromegaly, no JVD CVS/HEART: RRR, normal S1S2, pulses present bilaterally CHEST/LUNGS: CTA B, Symmetrical chest expansion, good air entry bilaterally GI/Abdomen: soft, NTND, good bowel sounds, no guarding or rebound /Bladder: no suprapubic tenderness, no CVA or paraspinal tenderness EXT/Skin: no c/c/e, no obvious rash MSK: FROM x 4 Neuro: CN 2-12 grossly intact, no new focal deficits Psych: calm - Constitutional Vitals: Temp Pulse Resp BP Pulse Ox 97.5 F L 89 18 147/94 98 08/03/18 11:39 08/03/18 12:00 08/03/18 11:39 08/03/18 11:39 08/03/18 11:39 General appearance: Present: no acute distress Results - Labs CBC & Chem 7: 08/03/18 06:16 08/03/18 06:16 Labs: Laboratory Last Values WBC 5.4 K/mm3 (4.5-11.0) 08/03/18 06:16 RBC 4.67 M/mm3 (3.65-5.03) 08/03/18 06:16 Hgb 13.5 gm/dl (11.8-15.2) 08/03/18 06:16 Hct 40.5 % (35.5-45.6) 08/03/18 06:16 MCV 87 fl (84-94) 08/03/18 06:16 MCH 29 pg (28-32) 08/03/18 06:16 MCHC 33 % (32-34) 08/03/18 06:16 RDW 13.5 % (13.2-15.2) 08/03/18 06:16 Plt Count 192 K/mm3 (140-440) 08/03/18 06:16 Lymph % (Auto) 26.7 % (13.4-35.0) 08/03/18 06:16 Hanson % (Auto) 13.7 % (0.0-7.3) H 08/03/18 06:16 Eos % (Auto) 1.7 % (0.0-4.3) 08/03/18 06:16 Baso % (Auto) 0.8 % (0.0-1.8) 08/03/18 06:16 Lymph # 1.5 K/mm3 (1.2-5.4) 08/03/18 06:16 Hanson # 0.7 K/mm3 (0.0-0.8) 08/03/18 06:16 Eos # 0.1 K/mm3 (0.0-0.4) 08/03/18 06:16 Baso # 0.0 K/mm3 (0.0-0.1) 08/03/18 06:16 Seg Neutrophils % 57.1 % (40.0-70.0) 08/03/18 06:16 Seg Neutrophils # 3.1 K/mm3 (1.8-7.7) 08/03/18 06:16 PT 15.4 Sec. (12.2-14.9) H 08/02/18 23:33 INR 1.16 (0.87-1.13) H 08/02/18 23:33 APTT 29.8 Sec. (24.2-36.6) 08/02/18 23:33 D-Dimer 638.22 ng/mlDDU (0-234) H 08/02/18 21:29 Heparin Anti-Xa Level 0.65 U.I./ml (0.3-0.7) 08/03/18 06:16 Sodium 136 mmol/L (137-145) L 08/03/18 06:16 Potassium 4.1 mmol/L (3.6-5.0) 08/03/18 06:16 Chloride 102.0 mmol/L (98-107) 08/03/18 06:16 Carbon Dioxide 22 mmol/L (22-30) 08/03/18 06:16 Anion Gap 16 mmol/L 08/03/18 06:16 BUN 17 mg/dL (9-20) 08/03/18 06:16 Creatinine 1.4 mg/dL (0.8-1.5) 08/03/18 06:16 Estimated GFR > 60 ml/min 08/03/18 06:16 BUN/Creatinine Ratio 12 % 08/03/18 06:16 Glucose 188 mg/dL (75-100) H 08/03/18 06:16 POC Glucose 145 (70-105) H 08/03/18 11:38 Calcium 8.4 mg/dL (8.4-10.2) 08/03/18 06:16 Total Creatine Kinase 51 units/L (55-170) L 08/03/18 06:16 CK-MB (CK-2) 2.1 ng/mL (0.0-4.0) 08/03/18 06:16 CK-MB (CK-2) Rel Index 4.1 (0-4) H 08/03/18 06:16 Troponin T < 0.010 ng/mL (0.00-0.029) 08/03/18 06:16
[2018-08-03] MEDS: HEPARIN/ 0.45% NACL-25,000 UNIT/500 ML 25,000 UNIT/500 ML BAG IV SCH (18:45)
[2018-08-04 07:18] LABS: Hematocrit 40.3 % (35.5-45.6); Hemoglobin 13.3 gm/dl (11.8-15.2)
[2018-08-04] MEDS: HumaLOG SUB-Q SCH ×4 (08:09→21:12)
--- NOTE | 2018-08-04 09:40 | Progress Note ---
Assessment and Plan Assessment and plan: Patient is a 63 yo man with a history of NIDDM, p. Afib on Eliquis, Cardiomyopathy with AICD and hypertension who I just discharged from the hospital. He returned the same day as discharge due to a syncopal episode. He was at [facility] getting his prescripiton filled when he felt dizzy, sweaty and passed out for one second. * CTA chest reported right lower lung pulmonary embolism Acute RLL pulmonary embolus causing Syncope: Continue heparin drip, consulted cardiology, venous ble doppler negative for DVT, start Coumadin vs Eliquis will d/w patient, if Eliqiuis will d/c home tomorrow NIDDM: accu check and ssi AFib with AICD; restart Coreg and heart rate should improve, d/w Cardiology, Dr. Funes, giulia with d/c home with Eliquis, interrogation done yesterday and patient told if was not triggered Nonadherence to medical therapy: beauty counselor on compliance, patient had been out of Eliquis for approx 1 week Hypertension with heart disease: continue medication, beauty counselor on compliance, low salt/cardiac diet Chronic kidney disease, stage 3: continue to monitor d/c heparin drip start Eliquis at higher dose, possibly d/c tomorrow History Interval history: Patient was seen and examined. Follow-up on current diagnosis of syncope. Overnight uneventful. Patient denies any chest pain, shortness breath, nausea/ vomiting or severe headaches. Imaging, nursing note, chart, labs and old chart reviewed. Discussed with patient. Not on o2, no complaints Hospitalist Physical - Physical exam Narrative exam: GEN: WDWN, NAD, Awake, Alert, Orientated x 3 HEENT: NCAT, EOMI, PERRL, OP Clear NECK: supple, no adenopathy, no thyromegaly, no JVD CVS/HEART: RRR, normal S1S2, pulses present bilaterally CHEST/LUNGS: CTA B, Symmetrical chest expansion, good air entry bilaterally GI/Abdomen: soft, NTND, good bowel sounds, no guarding or rebound /Bladder: no suprapubic tenderness, no CVA or paraspinal tenderness EXT/Skin: no c/c/e, no obvious rash MSK: FROM x 4 Neuro: CN 2-12 grossly intact, no new focal deficits Psych: calm - Constitutional Vitals: Temp Pulse Resp BP Pulse Ox 97.6 F 81 17 133/93 96 08/04/18 03:55 08/04/18 03:55 08/04/18 03:55 08/04/18 03:55 08/04/18 03:55 General appearance: Present: no acute distress Results - Labs CBC & Chem 7: 08/04/18 05:47 08/03/18 06:16 Labs: Laboratory Last Values WBC 5.4 K/mm3 (4.5-11.0) 08/03/18 06:16 RBC 4.67 M/mm3 (3.65-5.03) 08/03/18 06:16 Hgb 13.3 gm/dl (11.8-15.2) 08/04/18 05:47 Hct 40.3 % (35.5-45.6) 08/04/18 05:47 MCV 87 fl (84-94) 08/03/18 06:16 MCH 29 pg (28-32) 08/03/18 06:16 MCHC 33 % (32-34) 08/03/18 06:16 RDW 13.5 % (13.2-15.2) 08/03/18 06:16 Plt Count 201 K/mm3 (140-440) 08/04/18 05:47 Lymph % (Auto) 26.7 % (13.4-35.0) 08/03/18 06:16 [place] % (Auto) 13.7 % (0.0-7.3) H 08/03/18 06:16 Eos % (Auto) 1.7 % (0.0-4.3) 08/03/18 06:16 Baso % (Auto) 0.8 % (0.0-1.8) 08/03/18 06:16 Lymph # 1.5 K/mm3 (1.2-5.4) 08/03/18 06:16 [place] # 0.7 K/mm3 (0.0-0.8) 08/03/18 06:16 Eos # 0.1 K/mm3 (0.0-0.4) 08/03/18 06:16 Baso # 0.0 K/mm3 (0.0-0.1) 08/03/18 06:16 Seg Neutrophils % 57.1 % (40.0-70.0) 08/03/18 06:16 Seg Neutrophils # 3.1 K/mm3 (1.8-7.7) 08/03/18 06:16 PT 15.4 Sec. (12.2-14.9) H 08/02/18 23:33 INR 1.16 (0.87-1.13) H 08/02/18 23:33 APTT 29.8 Sec. (24.2-36.6) 08/02/18 23:33 D-Dimer 638.22 ng/mlDDU (0-234) H 08/02/18 21:29 Heparin Anti-Xa Level 0.46 U.I./ml (0.3-0.7) 08/04/18 08:00 Sodium 136 mmol/L (137-145) L 08/03/18 06:16 Potassium 4.1 mmol/L (3.6-5.0) 08/03/18 06:16 Chloride 102.0 mmol/L (98-107) 08/03/18 06:16 Carbon Dioxide 22 mmol/L (22-30) 08/03/18 06:16 Anion Gap 16 mmol/L 08/03/18 06:16 BUN 17 mg/dL (9-20) 08/03/18 06:16 Creatinine 1.4 mg/dL (0.8-1.5) 08/03/18 06:16 Estimated GFR > 60 ml/min 08/03/18 06:16 BUN/Creatinine Ratio 12 % 08/03/18 06:16 Glucose 188 mg/dL (75-100) H 08/03/18 06:16 POC Glucose 172 (70-105) H 08/04/18 06:19 Calcium 8.4 mg/dL (8.4-10.2) 08/03/18 06:16 Total Creatine Kinase 51 units/L (55-170) L 08/03/18 06:16 CK-MB (CK-2) 2.1 ng/mL (0.0-4.0) 08/03/18 06:16 CK-MB (CK-2) Rel Index 4.1 (0-4) H 08/03/18 06:16 Troponin T < 0.010 ng/mL (0.00-0.029) 08/03/18 06:16
[2018-08-04] MEDS ORDERED: NON-FORMULARY (Multivit-Min/Iron Fum/Folic Ac [Multi-Vitamin-Minerals Tablet] 1 EACH) PO SCH (10:00)
--- NOTE | 2018-08-04 10:26 | Progress Note ---
Assessment and Plan 1. Acute pulmonary embolism. 2. Syncope likely secondary to acute pulmonary embolism 3. Dilated nonischemic cardiomyopathy 4. Chronic atrial fibrillation 5. Presence of the ICD Plan. Patient is currently stable. He will restart this and requests for acute pulmonary embolism using recommended dose for management of acute pulmonary embolism. The ICD interrogation did not reveal any cardiac arrhythmia that could explain his syncope. Follow-up with manager application as an outpatient Subjective Date of service: 08/04/18 Interval history: No cardiac symptoms Objective Vital Signs Temp Pulse Pulse Resp BP BP BP 08/04/18 09:50 08/04/18 09:04 98.0 F 84 18 151/105 08/04/18 03:55 97.6 F 81 17 133/93 08/04/18 00:35 98.4 F 85 17 126/75 08/03/18 22:00 08/03/18 20:35 98.6 F 82 17 121/89 08/03/18 20:14 84 08/03/18 17:01 97.4 F L 88 18 133/96 08/03/18 16:00 88 133/96 08/03/18 12:00 89 08/03/18 11:39 97.5 F L 89 18 147/94 Pulse Ox 08/04/18 09:50 96 08/04/18 09:04 100 08/04/18 03:55 96 08/04/18 00:35 100 08/03/18 22:00 98 08/03/18 20:35 98 08/03/18 20:14 08/03/18 17:01 08/03/18 16:00 08/03/18 12:00 08/03/18 11:39 98 - Physical Examination General: Appears Well, No Apparent Distress, Cachectic HEENT: Positive: PERRL, Normocephaly, Mucus Membranes Moist Neck: Positive: neck supple, trachea midline. Negative: JVD/HJR Cardiac: Positive: Regular Rate, S1/S2, PMI, Laterally Displaced Lungs: Positive: clear to auscultation, No Wheeze, Rales, Rhonchi Neuro: Positive: Grossly Intact, No Lateralizing Findings Abdomen: Positive: Unremarkable, Soft, Active Bowel Sounds Extremities: Absent: edema - Labs and Meds CBC 08/04/18 Range/Units 05:47 Hgb 13.3 (11.8-15.2) gm/dl Hct 40.3 (35.5-45.6) % Plt Count 201 (140-440) K/mm3 - Telemetry EKG Rhythm: Atrial Fibrillation
[2018-08-04] MEDS: COREG PO SCH ×2 (11:01→21:13)
[2018-08-04] MEDS: THERAGRAN-M Tab PO SCH (11:01)
[2018-08-04] MEDS: ALDACTONE PO SCH (11:01)
[2018-08-04] MEDS: LASIX PO SCH (11:01)
[2018-08-04] MEDS: BABY ASPIRIN PO SCH (11:01)
[2018-08-04] MEDS: ELIQUIS PO SCH ×2 (11:01→21:10)
[2018-08-04] MEDS: MAG-OX PO SCH ×2 (11:01→21:10)
[2018-08-04] MEDS: SODIUM CHLORIDE FLUSH SYRINGE 10 ML IV SCH ×2 (11:02→22:05)
[2018-08-05] MEDS: HumaLOG SUB-Q SCH ×2 (08:27→12:12)
[2018-08-05] MEDS: THERAGRAN-M Tab PO SCH (09:11)
[2018-08-05] MEDS: BABY ASPIRIN PO SCH (09:12)
[2018-08-05] MEDS: ELIQUIS PO SCH (09:12)
[2018-08-05] MEDS: COREG PO SCH (09:12)
[2018-08-05] MEDS: LASIX PO SCH (09:13)
[2018-08-05] MEDS: ALDACTONE PO SCH (09:13)
[2018-08-05] MEDS: MAG-OX PO SCH (09:13)
[2018-08-05] MEDS: SODIUM CHLORIDE FLUSH SYRINGE 10 ML IV SCH (09:14)
--- NOTE | 2018-08-05 09:52 | Progress Note ---
Assessment and Plan 1. Acute pulmonary embolism. 2. Syncope likely secondary to acute pulmonary embolism 3. Dilated nonischemic cardiomyopathy 4. Chronic atrial fibrillation 5. Presence of the ICD Plan. Patient is currently stable. Restarted Eliquis for acute pulmonary embolism using recommended dose for management of acute pulmonary embolism. The ICD interrogation did not reveal any cardiac arrhythmia that could explain his syncope. Follow-up with manager technology as an outpatient Subjective Date of service: 08/05/18 Interval history: No cardiac symptoms Objective Vital Signs Temp Pulse Pulse Resp BP BP Pulse Ox 08/05/18 09:13 78 124/80 08/05/18 09:12 78 124/80 08/05/18 08:27 78 124/80 08/05/18 08:25 124/80 08/05/18 03:38 98.5 F 79 18 111/74 97 08/05/18 01:00 74 08/04/18 23:47 98.2 F 64 18 110/71 96 08/04/18 21:13 84 124/92 08/04/18 19:47 98.1 F 87 18 124/92 96 08/04/18 16:40 97.8 F 79 20 124/84 96 08/04/18 12:08 97.8 F 82 18 122/89 98 08/04/18 11:01 84 151/105 08/04/18 10:00 84 18 100 - Physical Examination General: Appears Well, No Apparent Distress, Cachectic HEENT: Positive: PERRL, Normocephaly, Mucus Membranes Moist Neck: Positive: neck supple, trachea midline. Negative: JVD/HJR Cardiac: Positive: irregularly irregular, S1/S2, PMI, Dilated, Laterally Displaced. Negative: S4 Lungs: Positive: clear to auscultation, No Wheeze, Rales, Rhonchi Neuro: Positive: Grossly Intact, No Lateralizing Findings Abdomen: Positive: Unremarkable, Soft, Active Bowel Sounds Extremities: Absent: edema
[2018-08-05 09:55] VITALS: BP 101/70
[2018-08-05] MEDS ORDERED: COLCHICINE PO SCH (11:00)
--- NOTE | 2018-08-05 13:28 | Discharge Summary ---
Providers - Providers Date of Admission: 08/02/18 23:09 Date of discharge: 08/05/18 Attending physician: CADENCE LIN 08/02/18 20:59 Consult to Physician [CONS] Stat Comment: Consulting Provider: JOHNATHAN MILTON Physician Instructions: Reason For Exam: syncope Primary care physician: BIOMATERIALS ENGINEER Hospitalization Condition: Stable Hospital course: Patient is a 63 yo man with a history of NIDDM, p. Afib on Eliquis, Cardiomyopathy with AICD and hypertension who I just discharged from the hospital. He returned the same day as discharge due to a syncopal episode. He was at [facility] getting his prescripiton filled when he felt dizzy, sweaty and passed out for one second. * CTA chest reported right lower lung pulmonary embolism Acute RLL pulmonary embolus causing Syncope: Eliqiuis NIDDM: accu check and ssi AFib with AICD; restart Coreg and heart rate should improve, d/w Cardiology, giulia Obando with d/c home with Eliquis, interrogation done yesterday and patient told if was not triggered Nonadherence to medical therapy: preparole counseling aide on compliance, patient had been out of Eliquis for approx 1 week Hypertension with heart disease: continue medication, preparole counseling aide on compliance, low salt/cardiac diet Chronic kidney disease, stage 3: continue to monitor Disposition: DC-01 TO HOME OR SELFCARE Time spent for discharge: 32 min Core Measure Documentation - Palliative Care Palliative Care/ Comfort Measures: Not Applicable - Core Measures Any of the following diagnoses?: DVT/PE - VTE Discharge Requirements Deep Vein Thrombosis/Pulmonary Embolism Present on Admission: Yes Has pt received <5 days of overlap therapy or INR<2.0: No (on Eliquis) Anticoagulant overlap therapy prescribed at discharge: No Contraindication No Overlap Therapy order at DC: Not Indicated Exam - Physical Exam Narrative exam: GEN: WDWN, NAD, Awake, Alert, Orientated x 3 HEENT: NCAT, EOMI, PERRL, OP Clear NECK: supple, no adenopathy, no thyromegaly, no JVD CVS/HEART: RRR, normal S1S2, pulses present bilaterally CHEST/LUNGS: CTA B, Symmetrical chest expansion, good air entry bilaterally GI/Abdomen: soft, NTND, good bowel sounds, no guarding or rebound /Bladder: no suprapubic tenderness, no CVA or paraspinal tenderness EXT/Skin: no c/c/e, no obvious rash MSK: FROM x 4 Neuro: CN 2-12 grossly intact, no new focal deficits Psych: calm - Constitutional Vitals: Temp Pulse Resp BP Pulse Ox 98.1 F 70 20 101/70 97 08/05/18 09:53 08/05/18 09:53 08/05/18 09:53 08/05/18 09:53 08/05/18 09:53 Plan Activity: other (no strenous activity unless cleared by Cardiology) Diet: low salt Follow up with: PRIMARY CARE, [Primary Care Provider] - 3-5 Days Prescriptions: Apixaban [Eliquis] 10 mg PO Q12HR #12 tablet
== END 2018-08-05 15:43 | disposition home or self-care (01) | DRG 176 ==
LOC: ED 19:07 → 4A 23:09
PROVIDERS: ADMIT Internal Medicine; ATTEND Internal Medicine
PROC: 4B02XTZ Measurement of Cardiac Defibrillator, External Approach (ICD-10-PCS; principal; 2018-08-03)
DX: I26.99 Other pulmonary embolism without acute cor pulmonale (principal); I48.0 Paroxysmal atrial fibrillation; I13.0 Hypertensive heart and chronic kidney disease with heart failure and stage 1 through stage 4 chronic kidney disease, or unspecified chronic kidney disease; E11.22 Type 2 diabetes mellitus with diabetic chronic kidney disease; N18.3 Chronic kidney disease, stage 3 (moderate); I50.9 Heart failure, unspecified; I42.0 Dilated cardiomyopathy; Z95.810 Presence of automatic (implantable) cardiac defibrillator; Z91.19 Patient's noncompliance with other medical treatment and regimen; Z71.89 Other specified counseling; Z88.0 Allergy status to penicillin; Z79.82 Long term (current) use of aspirin; Z79.899 Other long term (current) drug therapy; Z82.49 Family history of ischemic heart disease and other diseases of the circulatory system
CPT/HCPCS: 36415; 71045; 71275; 80048; 82550; 82553; 82962; 84484; 85014; 85018; 85025; 85049; 85379; 85520; 85610; 85730; 93005; 93010; 93970; 96361; 96374; 96375; J1644; J1815; J7040; Q9967

== ENCOUNTER 2018-08-09 02:25 | Emergency (ER) | payer MEDICAID ==
[2018-08-09 04:06] LABS: Calcium 9.4 mg/dL (8.4-10.2)
--- NOTE | 2018-08-09 04:30 | XRay Report ---
FINAL REPORT PROCEDURE: XR CHEST 1V AP TECHNIQUE: Chest radiograph anteroposterior view. CPT 24723 HISTORY: chest pain COMPARISON: 08/02/2018 FINDINGS: Heart: Heart is borderline enlarged. Mediastinum/Vessels: Normal. Lungs/Pleural space: Lungs are clear. There are no infiltrates, effusions or pneumothoraces.. Bony thorax: No acute osseous abnormality. Life support devices: Pacemaker lead is in proper position.. IMPRESSION: Heart is enlarged. Lungs are clear..
[2018-08-09 05:39] LABS: INR 1.29 (0.87-1.13)
[2018-08-09 05:40] LABS: Partial Thromboplastin Time 33.9 Sec. (24.2-36.6)
--- NOTE | 2018-08-09 06:12 | Emergency Department Report ---
ED Chest Pain HPI - General Chief Complaint: Chest Pain Stated Complaint: CHEST PAIN Time Seen by Provider: 08/09/18 06:08 Source: patient Mode of arrival: Ambulatory Limitations: No Limitations - History of Present Illness Initial Comments: This is a 63 year old male who appears to have a certain degree of "romie indeferrence" relating to his chest pain today and the reason why he came in here yesterday. Patient states that he had "a little bit of chest pain". He states more specifically that his chest pain was for seconds duration intermittently over a one half hour. He denies any shortness of breath, cough, sweating, nausea or vomiting. He denied any symptoms of dizziness or syncope. He is now asymptomatic. He additionally adds that yesterday he saw Dr. Gonsales and his primary care doctor who told him he was doing fine. He has a history of pulmonary embolism and was recently placed on Eliquis. He was thought to be poorly compliant in the past. However, he states he is taking his medicine this time. He denies any acute leg swelling or pain. He was just discharged a few days ago with the following discharge summary: Condition: Stable Hospital course: Patient is a 63 yo man with a history of NIDDM, p. Afib on Eliquis, Cardiomyopathy with AICD and hypertension who I just discharged from the hospital. He returned the same day as discharge due to a syncopal episode. He was at [facility] getting his prescripiton filled when he felt dizzy, sweaty and passed out for one second. 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 He is never had PCI. He does have an AICD. He states it went off once about a year ago. He's had no recent symptoms of discharge of his AICD. Complaint: chest pain -: Gradual, minutes(s) (patient states that the pain was of seconds duration a few times over the course of one half hour) Onset: during rest Pain Location: left chest Pain Radiation: none Quality: aching Consistency: intermittent, now resolved Improves With: nothing Worsens With: nothing Context: other (recent pulmonary embolism) re: denies: nausea, vomting, diaphoresis, dyspnea, sense of impending doom Other Symptoms: denies: cough, fever, syncope Treatments Prior to Arrival: other (states compliant with Eliquis) - Related Data Previous Rx's Medication Instructions Recorded Last Taken Type Multivit-Min/Iron Fum/Folic AC 1 each PO QDAY #30 tablet 10/17/15 1 Day Ago Rx [[id number]-Mvgumxz-Waqfrwjb Tablet] ~02/22/17 Aspirin [Aspirin BABY CHEW TAB] 81 mg PO QDAY #30 tab.chew 08/02/18 08/02/18 Rx Carvedilol [Coreg] 25 mg PO BID #60 tablet 08/02/18 08/02/18 Rx Colchicine [Colcrys] 0.6 mg PO DAILY #30 tab 08/02/18 Unknown Rx Cyclobenzaprine HCl [Flexeril 5 MG 5 mg PO TID PRN #9 tab 08/02/18 Unknown Rx TAB] Lisinopril [Zestril TAB] 40 mg PO QDAY #30 tablet 08/02/18 Unknown Rx Magnesium Oxide [Magnesium] 400 mg PO BID #14 tablet 08/02/18 Unknown Rx Spironolactone [Aldactone] 50 mg PO QDAY #30 tablet 08/02/18 Unknown Rx Acetaminophen [Acetaminophen TAB] 650 mg PO Q4H PRN #15 tablet 08/05/18 Unknown Rx Apixaban [Eliquis] 5 mg PO BID #60 tablet 08/05/18 Unknown Rx Apixaban [Eliquis] 10 mg PO Q12HR #12 tablet 08/05/18 Unknown Rx Furosemide [Lasix TAB] 40 mg PO DAILY tablet 08/05/18 Unknown Rx Multivitamin Tab W-MINERAL 1 each PO QDAY tablet 08/05/18 Unknown Rx [Multiple Vitamin/Mineral (Theragran M)] Allergies Allergy/AdvReac Type Severity Reaction Status Date / Time Penicillins AdvReac Unknown Verified 11/21/15 12:23 Heart Score - HEART Score History: Slightly suspicious EKG: Non-specific Age: 45-65 Risk factors: 1-2 risk factors Troponin: < normal limit HEART Score: 3 - Critical Actions Critical Actions: 0-3 pts:0.9-1.7%risk of adverse cardiac event.Candidate for discharge ED Review of Systems ROS: Stated complaint: CHEST PAIN Other details as noted in HPI ED Past Medical Hx - Past Medical History Hx Hypertension: Yes Hx Congestive Heart Failure: Yes Hx Diabetes: Yes Hx Renal Disease: Yes Hx Asthma: No Hx COPD: No - Surgical History Hx Internal Defibrillator: Yes Additional Surgical History: HERNIA REPAIR - Social History Smoking Status: Never Smoker Substance Use Type: None - Medications Home Medications: Home Medications Medication Instructions Recorded Confirmed Last Taken Type Multivit-Min/Iron Fum/Folic AC 1 each PO QDAY #30 tablet 10/17/15 08/03/18 1 Day Ago Rx [Qmjqo-Sdpzcuv-Vkmhotfu Tablet] ~02/22/17 Aspirin [Aspirin BABY CHEW TAB] 81 mg PO QDAY #30 tab.chew 08/02/18 08/03/18 Rx Carvedilol [Coreg] 25 mg PO BID #60 tablet 08/02/18 08/03/18 08/02/18 Rx Colchicine [Colcrys] 0.6 mg PO DAILY #30 tab 08/02/18 08/03/18 Unknown Rx Cyclobenzaprine HCl [Flexeril 5 MG 5 mg PO TID PRN #9 tab 08/02/18 08/03/18 Unknown Rx TAB] Lisinopril [Zestril TAB] 40 mg PO QDAY #30 tablet 08/02/18 08/03/18 Unknown Rx Magnesium Oxide [Magnesium] 400 mg PO BID #14 tablet 08/02/18 08/03/18 Unknown Rx Spironolactone [Aldactone] 50 mg PO QDAY #30 tablet 08/02/18 08/03/18 Unknown Rx Acetaminophen [Acetaminophen TAB] 650 mg PO Q4H PRN #15 tablet 08/05/18 Unknown Rx Apixaban [Eliquis] 5 mg PO BID #60 tablet 08/05/18 08/03/18 Unknown Rx Apixaban [Eliquis] 10 mg PO Q12HR #12 tablet 08/05/18 Unknown Rx Furosemide [Lasix TAB] 40 mg PO DAILY tablet 08/05/18 Unknown Rx Multivitamin Tab W-MINERAL 1 each PO QDAY tablet 08/05/18 Unknown Rx [Multiple Vitamin/Mineral (Theragran M)] ED Physical Exam - General Limitations: Physical Limitation General appearance: alert, in no apparent distress, obese - Head Head exam: Present: atraumatic, normocephalic - Eye Eye exam: Present: normal appearance - ENT ENT exam: Present: mucous membranes moist - Neck Neck exam: Present: normal inspection. Absent: tenderness, meningismus - Respiratory Respiratory exam: Present: normal lung sounds bilaterally. Absent: respiratory distress - Cardiovascular Cardiovascular Exam: Present: regular rate, normal rhythm. Absent: systolic murmur, diastolic murmur, rubs, gallop - GI/Abdominal GI/Abdominal exam: Present: soft, normal bowel sounds. Absent: distended, tenderness, guarding, rebound, rigid - Rectal Rectal exam: Present: deferred - Extremities Exam Extremities exam: Present: normal inspection, normal capillary refill. Absent: tenderness, calf tenderness - Back Exam Back exam: Present: normal inspection - Neurological Exam Neurological exam: Present: alert, oriented X3, CN II-XII intact. Absent: motor sensory deficit - Psychiatric Psychiatric exam: Present: normal mood, flat affect - Skin Skin exam: Present: warm, dry, intact, normal color. Absent: rash ED Course Vital Signs 08/09/18 08/09/18 08/09/18 02:30 02:47 03:07 Temperature 98.6 F 98.6 F Pulse Rate 79 79 80 Respiratory 16 16 18 Rate Blood Pressure 119/80 119/99 Blood Pressure 119/88 [Left] O2 Sat by Pulse 98 99 Oximetry 08/09/18 08/09/18 08/09/18 03:09 03:15 03:30 Temperature Pulse Rate 77 81 Respiratory 18 12 35 H Rate Blood Pressure 113/80 110/75 Blood Pressure [Left] O2 Sat by Pulse 99 100 Oximetry 08/09/18 08/09/18 08/09/18 03:46 04:00 04:15 Temperature Pulse Rate 76 76 79 Respiratory 11 L 22 12 Rate Blood Pressure 125/87 125/91 122/81 Blood Pressure [Left] O2 Sat by Pulse 100 98 99 Oximetry 08/09/18 08/09/18 08/09/18 04:30 04:45 05:00 Temperature Pulse Rate 71 64 76 Respiratory 14 12 20 Rate Blood Pressure 114/80 107/76 103/76 Blood Pressure [Left] O2 Sat by Pulse 98 94 94 Oximetry 08/09/18 08/09/18 08/09/18 05:15 05:30 05:45 Temperature Pulse Rate 71 78 79 Respiratory 18 11 L 10 L Rate Blood Pressure 104/53 114/75 115/75 Blood Pressure [Left] O2 Sat by Pulse 96 99 98 Oximetry 08/09/18 08/09/18 08/09/18 06:03 06:16 06:30 Temperature Pulse Rate 76 71 Respiratory 18 15 Rate Blood Pressure 114/75 113/84 116/81 Blood Pressure [Left] O2 Sat by Pulse 98 100 99 Oximetry 08/09/18 06:45 Temperature Pulse Rate 73 Respiratory 22 Rate Blood Pressure 115/83 Blood Pressure [Left] O2 Sat by Pulse 98 Oximetry - Reevaluation(s) Reevaluation #1: Patient's d-dimer was 292 compared with 680s on 08/02. I don't think this is suggestive of recurrent PE. He is already anticoagulated. 08/09/18 06:55 Reevaluation #2: The patient was reexamined. His respiratory rate is 18. His pulse oximetry is 98%. He is asymptomatic. He states he is ready to go home. I have given him appropriate return criteria. I can't take up any benefit of hospitalization at this point. Compliance with this medicine is reemphasized. He remains in normal sinus rhythm. He has had no AICD activity. 08/09/18 07:20 08/09/18 07:21 QUINTON score - Quinton Score Age > 65: (0) No Aspirin use within the Past 7 Days: (1) Yes 3 or more CAD Risk Factors: (1) Yes 2 or more Angina events in past 24 hrs: (1) Yes Known CAD with more than 50% Stenosis: (0) No Elevated Cardiac Markers: (0) No ST Deviation Greater than 0.5mm: (0) No QUINTON Score: 3 ED Medical Decision Making - Lab Data Result diagrams: 08/09/18 03:01 08/09/18 03:01 Laboratory Results - last 24 hr 08/09/18 08/09/18 08/09/18 03:01 05:14 05:14 PT 16.8 H INR 1.29 H APTT 33.9 Sodium 133 L Potassium 3.9 Chloride 94.8 L Carbon Dioxide 28 Anion Gap 14 BUN 29 H Creatinine 1.9 H Estimated GFR 44 BUN/Creatinine Ratio 15 Glucose 281 H Calcium 9.4 Troponin T 0.021 0.012 NT-Pro-B Natriuret Pep 08/09/18 05:14 PT INR APTT Sodium Potassium Chloride Carbon Dioxide Anion Gap BUN Creatinine Estimated GFR BUN/Creatinine Ratio Glucose Calcium Troponin T NT-Pro-B Natriuret Pep 1713 H - EKG Data -: EKG Interpreted by Me EKG shows normal: axis, intervals, QRS complexes, ST-T waves Rate: normal - EKG Data Interpretation: nonspecific ST-T wave randal, other (ventricular bigeminy) - Radiology Data Radiology results: report reviewed interpreted by me: Cardiomegaly without decompensation Critical care attestation.: If time is entered above; I have spent that time in minutes in the direct care of this critically ill patient, excluding procedure time. ED Disposition Clinical Impression: Dilated cardiomyopathy, Ventricular bigeminy Chest pain Qualifiers: Chest pain type: unspecified Qualified Code(s): R07.9 - Chest pain, unspecified Disposition: DC-01 TO HOME OR SELFCARE Is pt being admited?: No Does the pt Need Aspirin: No Condition: Stable Instructions: Chest Pain (ED) Additional Instructions: Return any chest pain that persists more than a few seconds. Return if any shortness of breath. Be sure to take your Eliquis and usual other medication. Follow-up with usual physicians. Referrals: YENIFER PEARCE MD [Primary Care Provider] - 3-5 Days JOHNATHAN GONSALES MD [Staff Physician] - 24 Hours Time of Disposition: 07:23
[2018-08-09 06:25] LABS: Hematocrit 39.2 % (35.5-45.6); Hemoglobin 13.1 gm/dl (11.8-15.2); Mean Corpuscular HGB Conc 34 % (32-34); Mean Corpuscular Hemoglobin 29 pg (28-32); Mean Corpuscular Volume 88 fl (84-94); Platelet Count 261 K/mm3 (140-440); Red Blood Count 4.47 M/mm3 (3.65-5.03); Red Cell Distribution Width 13.6 % (13.2-15.2)
[2018-08-09 06:53] VITALS: BP 115/83
[2018-08-09 07:28] LABS: Band Neutrophils # (Manual) 0.1 K/mm3; Basophils % (Manual) 0 % (0.0-1.8); Total Cells Counted 100
[2018-08-09 07:29] LABS: Anisocytosis 1+
== END 2018-08-09 07:52 | disposition home or self-care (01) ==
LOC: ED 02:25
DX: I42.0 Dilated cardiomyopathy (principal); R00.8 Other abnormalities of heart beat; I11.0 Hypertensive heart disease with heart failure; I50.9 Heart failure, unspecified; E11.9 Type 2 diabetes mellitus without complications; Z95.0 Presence of cardiac pacemaker; Z79.82 Long term (current) use of aspirin; Z88.0 Allergy status to penicillin
CPT/HCPCS: 36415; 71045; 80048; 83880; 84484; 85007; 85025; 85379; 85610; 85730; 93005; 93010; 99284

== ENCOUNTER 2020-01-04 11:14 | Emergency (ER) | payer MEDICAID ==
--- NOTE | 2020-01-04 11:47 | XRay Report ---
CHEST 2 VIEWS INDICATION / CLINICAL INFORMATION: Chest Pain. COMPARISON: None available. FINDINGS: SUPPORT DEVICES: None. HEART / MEDIASTINUM: No significant abnormality. LUNGS / PLEURA: No significant pulmonary or pleural abnormality. No pneumothorax. ADDITIONAL FINDINGS: No significant additional findings. IMPRESSION: 1. No acute findings. Signer Name: Josemanuel Pinto MD Signed: 01/04/2020 11:42 AM Workstation Name: [id number] [email or web address]
[2020-01-04 12:19] LABS: Basophils % (Auto) 0.5 % (0.0-1.8); Eosinophils # (Auto) 0.1 K/mm3 (0.0-0.4); Eosinophils % (Auto) 1.5 % (0.0-4.3); Hematocrit 36.6 % (35.5-45.6); Lymphocytes # (Auto) 1.4 K/mm3 (1.2-5.4); Lymphocytes % (Auto) 16.3 % (13.4-35.0); Mean Corpuscular HGB Conc 33 % (32-34); Mean Corpuscular Volume 89 fl (84-94); Monocytes % (Auto) 11.8 % (0.0-7.3); Platelet Count 243 K/mm3 (140-440); Red Cell Distribution Width 14.1 % (13.2-15.2)
[2020-01-04 12:37] LABS: INR 1.3 (0.87-1.13)
[2020-01-04 12:38] LABS: Partial Thromboplastin Time 27.8 Sec. (24.2-36.6)
[2020-01-04 12:47] LABS: Albumin 4.1 g/dL (3.9-5); Calcium 9.7 mg/dL (8.4-10.2)
[2020-01-04 16:48] VITALS: BP 110/53
--- NOTE | 2020-01-04 17:19 | Emergency Department Report ---
ED Chest Pain HPI - General Chief Complaint: Chest Pain Stated Complaint: CHEST PAIN Time Seen by Provider: 01/04/20 14:48 Source: patient Mode of arrival: Ambulatory Limitations: No Limitations - History of Present Illness Initial Comments: Patient is a 64-year-old Israeli male with a past medical history of hypertension diabetes and congestive heart failure who states he has had some off-and-on chest discomfort for the last day. He denies shortness of breath diaphoresis no exertional component. States is a sharp pain that hits on the left side of his chest that lasts several minutes and then subside. States this is occurring at random. Patient also states he feels some congestion in his chest and his head. Patient states that his symptoms just started. He has had some minor chills earlier today but has not had a documented fever. He denies cough at this time. Severity scale (0 -10): 4 - Related Data Previous Rx's Medication Instructions Recorded Last Taken Type Multivit-Min/Iron Fum/Folic AC 1 each PO QDAY #30 tablet 10/17/15 1 Day Ago Rx [Rukpu-Gegwkgk-Wgmnrbrh Tablet] ~02/22/17 Aspirin [Aspirin BABY CHEW TAB] 81 mg PO QDAY #30 tab.chew 08/02/18 08/02/18 Rx Colchicine [Colcrys] 0.6 mg PO DAILY #30 tab 08/02/18 Unknown Rx Cyclobenzaprine HCl [Flexeril 5 MG 5 mg PO TID PRN #9 tab 08/02/18 Unknown Rx TAB] Magnesium Oxide [Magnesium] 400 mg PO BID #14 tablet 08/02/18 Unknown Rx Spironolactone [Aldactone] 50 mg PO QDAY #30 tablet 08/02/18 Unknown Rx carvediloL [Coreg] 25 mg PO BID #60 tablet 08/02/18 08/02/18 Rx lisinopriL [Zestril TAB] 40 mg PO QDAY #30 tablet 08/02/18 Unknown Rx Acetaminophen [Acetaminophen TAB] 650 mg PO Q4H PRN #15 tablet 08/05/18 Unknown Rx Apixaban [Eliquis] 5 mg PO BID #60 tablet 08/05/18 Unknown Rx Apixaban [Eliquis] 10 mg PO Q12HR #12 tablet 08/05/18 Unknown Rx Furosemide [Lasix TAB] 40 mg PO DAILY tablet 08/05/18 Unknown Rx Multivitamin Tab W-MINERAL 1 each PO QDAY tablet 08/05/18 Unknown Rx [Multiple Vitamin/Mineral (Theragran M)] Albuterol INH(or & Nicu Only) 2 puff IH QID PRN #1 inhalation 01/04/20 Unknown Rx [ProAir HFA Inhaler] Fluticasone [Flonase] 1 spray NS QDAY #1 bottle 01/04/20 Unknown Rx traMADoL [Ultram] 50 mg PO Q6HR PRN #10 tablet 01/04/20 Unknown Rx Allergies Allergy/AdvReac Type Severity Reaction Status Date / Time Penicillins AdvReac Unknown Verified 11/21/15 12:23 Heart Score - HEART Score History: Slightly suspicious EKG: Non-specific Age: 45-65 Risk factors: 1-2 risk factors Troponin: < normal limit HEART Score: 3 ED Review of Systems ROS: Stated complaint: CHEST PAIN Other details as noted in HPI Comment: All other systems reviewed and negative ED Past Medical Hx - Past Medical History Previous Medical History?: Yes Hx Hypertension: Yes Hx Congestive Heart Failure: Yes Hx Diabetes: Yes Hx Renal Disease: Yes Hx Asthma: No Hx COPD: No - Surgical History Past Surgical History?: Yes Hx Internal Defibrillator: Yes Additional Surgical History: HERNIA REPAIR - Social History Smoking Status: Never Smoker Substance Use Type: Alcohol - Medications Home Medications: Home Medications Medication Instructions Recorded Confirmed Last Taken Type Multivit-Min/Iron Fum/Folic AC 1 each PO QDAY #30 tablet 10/17/15 08/03/18 1 Day Ago Rx [Vnibk-Lncseul-Kdagzcuj Tablet] ~02/22/17 Aspirin [Aspirin BABY CHEW TAB] 81 mg PO QDAY #30 tab.chew 08/02/18 08/03/18 08/02/18 Rx Colchicine [Colcrys] 0.6 mg PO DAILY #30 tab 08/02/18 08/03/18 Unknown Rx Cyclobenzaprine HCl [Flexeril 5 MG 5 mg PO TID PRN #9 tab 08/02/18 08/03/18 Unknown Rx TAB] Magnesium Oxide [Magnesium] 400 mg PO BID #14 tablet 08/02/18 08/03/18 Unknown Rx Spironolactone [Aldactone] 50 mg PO QDAY #30 tablet 08/02/18 08/03/18 Unknown Rx carvediloL [Coreg] 25 mg PO BID #60 tablet 08/02/18 08/03/18 08/02/18 Rx lisinopriL [Zestril TAB] 40 mg PO QDAY #30 tablet 08/02/18 08/03/18 Unknown Rx Acetaminophen [Acetaminophen TAB] 650 mg PO Q4H PRN #15 tablet 08/05/18 Unknown Rx Apixaban [Eliquis] 5 mg PO BID #60 tablet 08/05/18 08/03/18 Unknown Rx Apixaban [Eliquis] 10 mg PO Q12HR #12 tablet 08/05/18 Unknown Rx Furosemide [Lasix TAB] 40 mg PO DAILY tablet 08/05/18 Unknown Rx Multivitamin Tab W-MINERAL 1 each PO QDAY tablet 08/05/18 Unknown Rx [Multiple Vitamin/Mineral (Theragran M)] Albuterol INH(or & Nicu Only) 2 puff IH QID PRN #1 inhalation 01/04/20 Unknown Rx [ProAir HFA Inhaler] Fluticasone [Flonase] 1 spray NS QDAY #1 bottle 01/04/20 Unknown Rx traMADoL [Ultram] 50 mg PO Q6HR PRN #10 tablet 01/04/20 Unknown Rx ED Physical Exam - General Limitations: No Limitations General appearance: alert, in no apparent distress - Head Head exam: Present: atraumatic, normocephalic - Eye Eye exam: Present: normal appearance - ENT ENT exam: Present: normal orophraynx, mucous membranes moist - Neck Neck exam: Present: normal inspection - Respiratory Respiratory exam: Present: normal lung sounds bilaterally. Absent: respiratory distress, wheezes, rales, rhonchi - Cardiovascular Cardiovascular Exam: Present: regular rate, normal rhythm, normal heart sounds. Absent: systolic murmur, diastolic murmur, rubs, gallop - GI/Abdominal GI/Abdominal exam: Present: soft, normal bowel sounds. Absent: distended, tenderness, guarding - Rectal Rectal exam: Present: deferred - Extremities Exam Extremities exam: Present: normal inspection - Back Exam Back exam: Present: normal inspection - Neurological Exam Neurological exam: Present: alert, oriented X3 - Psychiatric Psychiatric exam: Present: normal affect, normal mood - Skin Skin exam: Present: warm, dry, intact, normal color. Absent: rash ED Course Vital Signs 01/04/20 01/04/20 01/04/20 11:20 11:52 16:44 Temperature 98.2 F 99.0 F Pulse Rate 70 95 H 82 Respiratory 16 18 16 Rate Blood Pressure 130/88 134/90 Blood Pressure 130/88 110/53 [Right] O2 Sat by Pulse 95 96 98 Oximetry AMADO score - Amado Score Age > 65: (0) No Aspirin use within the Past 7 Days: (1) Yes 3 or more CAD Risk Factors: (1) Yes 2 or more Angina events in past 24 hrs: (1) Yes Known CAD with more than 50% Stenosis: (0) No Elevated Cardiac Markers: (0) No ST Deviation Greater than 0.5mm: (0) No AMADO Score: 3 ED Medical Decision Making - Lab Data Result diagrams: 01/04/20 11:51 01/04/20 11:51 Lab Results 01/04/20 01/04/20 01/04/20 Range/Units 11:51 11:51 11:51 WBC 8.5 (4.5-11.0) K/mm3 RBC 4.10 (3.65-5.03) M/mm3 Hgb 12.0 (11.8-15.2) gm/dl Hct 36.6 (35.5-45.6) % MCV 89 (84-94) fl MCH 29 (28-32) pg MCHC 33 (32-34) % RDW 14.1 (13.2-15.2) % Plt Count 243 (140-440) K/mm3 Lymph % (Auto) 16.3 (13.4-35.0) % [place] % (Auto) 11.8 H (0.0-7.3) % Eos % (Auto) 1.5 (0.0-4.3) % Baso % (Auto) 0.5 (0.0-1.8) % Lymph # 1.4 (1.2-5.4) K/mm3 [place] # 1.0 H (0.0-0.8) K/mm3 Eos # 0.1 (0.0-0.4) K/mm3 Baso # 0.0 (0.0-0.1) K/mm3 Seg Neutrophils % 69.9 (40.0-70.0) % Seg Neutrophils # 6.0 (1.8-7.7) K/mm3 PT 16.4 H (12.2-14.9) Sec. INR 1.30 H (0.87-1.13) APTT 27.8 (24.2-36.6) Sec. D-Dimer 170.35 (0-234) ng/mlDDU Sodium 139 (137-145) mmol/L Potassium 5.4 H (3.6-5.0) mmol/L Chloride 102.1 (98-107) mmol/L Carbon Dioxide 23 (22-30) mmol/L Anion Gap 19 mmol/L BUN 26 H (9-20) mg/dL Creatinine 2.6 H (0.8-1.5) mg/dL Estimated GFR 30 ml/min BUN/Creatinine Ratio 10 % Glucose 113 H (75-100) mg/dL Calcium 9.7 (8.4-10.2) mg/dL Total Bilirubin 0.80 (0.1-1.2) mg/dL AST 13 (5-40) units/L ALT 9 (7-56) units/L Alkaline Phosphatase 142 H (35-129) units/L Troponin T 0.027 (0.00-0.029) ng/mL Total Protein 7.8 (6.3-8.2) g/dL Albumin 4.1 (3.9-5) g/dL Albumin/Globulin Ratio 1.1 % // Range/Units 15:56 WBC (4.5-11.0) K/mm3 RBC (3.65-5.03) M/mm3 Hgb (11.8-15.2) gm/dl Hct (35.5-45.6) % MCV (84-94) fl MCH (28-32) pg MCHC (32-34) % RDW (13.2-15.2) % Plt Count (140-440) K/mm3 Lymph % (Auto) (13.4-35.0) % [place] % (Auto) (0.0-7.3) % Eos % (Auto) (0.0-4.3) % Baso % (Auto) (0.0-1.8) % Lymph # (1.2-5.4) K/mm3 [place] # (0.0-0.8) K/mm3 Eos # (0.0-0.4) K/mm3 Baso # (0.0-0.1) K/mm3 Seg Neutrophils % (40.0-70.0) % Seg Neutrophils # (1.8-7.7) K/mm3 PT (12.2-14.9) Sec. INR (0.87-1.13) APTT (24.2-36.6) Sec. D-Dimer (0-234) ng/mlDDU Sodium (137-145) mmol/L Potassium (3.6-5.0) mmol/L Chloride (98-107) mmol/L Carbon Dioxide (22-30) mmol/L Anion Gap mmol/L BUN (9-20) mg/dL Creatinine (0.8-1.5) mg/dL Estimated GFR ml/min BUN/Creatinine Ratio % Glucose (75-100) mg/dL Calcium (8.4-10.2) mg/dL Total Bilirubin (0.1-1.2) mg/dL AST (5-40) units/L ALT (7-56) units/L Alkaline Phosphatase (35-129) units/L Troponin T 0.016 (0.00-0.029) ng/mL Total Protein (6.3-8.2) g/dL Albumin (3.9-5) g/dL Albumin/Globulin Ratio % - EKG Data -: EKG Interpreted by [place] EKG shows normal: sinus rhythm, axis, intervals, QRS complexes, ST-T waves Rate: bradycardia - EKG Data 01/04/20 17:16 Occasional PVCs are present. - Radiology Data CHEST 2 VIEWS INDICATION / CLINICAL INFORMATION: Chest Pain. COMPARISON: None available. FINDINGS: SUPPORT DEVICES: None. HEART / MEDIASTINUM: No significant abnormality. LUNGS / PLEURA: No significant pulmonary or pleural abnormality. No pneumothorax. ADDITIONAL FINDINGS: No significant additional findings. IMPRESSION: 1. No acute findings. Signer Name: Josemanuel Pinto MD Signed: 01/04/2020 11:42 AM Workstation Name: [email or web address] - Medical Decision Making Patient has a relatively low heart score and he has had 2- troponins here in our emergency department. Patient likely is in the beginning stages of a viral syndrome. Patient does have some head congestion and occasionally having some atypical chest discomfort type pains. Patient to be prescribed Flonase and albuterol inhaler patient will be given follow-up with his primary care physic brooke for outpatient follow-up. Critical care attestation.: If time is entered above; I have spent that time in minutes in the direct care of this critically ill patient, excluding procedure time. ED Disposition Clinical Impression: Atypical chest pain, Chest congestion Disposition: DC-01 TO HOME OR SELFCARE Is pt being admited?: No Does the pt Need Aspirin: No Condition: Stable Instructions: Chest Pain (ED), Viral Syndrome (ED) Referrals: PRIMARY CARE, [Primary Care Provider] - 3-5 Days Time of Disposition: 17:18
== END 2020-01-04 18:00 | disposition home or self-care (01) ==
LOC: ED 11:14
DX: R07.89 Other chest pain (principal); R09.89 Other specified symptoms and signs involving the circulatory and respiratory systems; I13.0 Hypertensive heart and chronic kidney disease with heart failure and stage 1 through stage 4 chronic kidney disease, or unspecified chronic kidney disease; N18.9 Chronic kidney disease, unspecified; E11.22 Type 2 diabetes mellitus with diabetic chronic kidney disease; I50.9 Heart failure, unspecified; Z98.890 Other specified postprocedural states; Z88.0 Allergy status to penicillin; Z79.899 Other long term (current) drug therapy
CPT/HCPCS: 36415; 71046; 80053; 84484; 85025; 85379; 85610; 85730; 93005; 93010

== ENCOUNTER 2022-04-21 01:28 | Inpatient (IN) | payer MEDICAID, MEDICARE ==
[2022-04-21] MEDS ORDERED: IPRATROPIUM 0.02% NEBU 2.5 ML IH ONE (06:45)
[2022-04-21] MEDS ORDERED: ALBUTEROL 2.5 MG/3 ML NEBU IH ONE ×2 (06:45→07:56)
[2022-04-21 07:23] LABS: Basophils % (Auto) 0.6 % (0.0-1.8); Eosinophils # (Auto) 0.1 K/mm3 (0.0-0.4); Eosinophils % (Auto) 2.3 % (0.0-4.3); Hematocrit 46.3 % (35.5-45.6); Hemoglobin 14.7 gm/dl (11.8-15.2); Lymphocytes # (Auto) 1.4 K/mm3 (1.2-5.4); Mean Corpuscular HGB Conc 32 % (32-34); Mean Corpuscular Volume 92 fl (84-94); Monocytes # (Auto) 0.6 K/mm3 (0.0-0.8); Monocytes % (Auto) 9.7 % (0.0-7.3); Platelet Count 174 K/mm3 (140-440); Red Blood Count 5.02 M/mm3 (3.65-5.03); Red Cell Distribution Width 15.2 % (13.2-15.2)
--- NOTE | 2022-04-21 07:30 | XRay Report ---
CHEST 1 VIEW INDICATION / CLINICAL INFORMATION: Dyspnea. COMPARISON: Chest x-ray 01/17/2022 FINDINGS: SUPPORT DEVICES: AICD is stable. HEART / MEDIASTINUM: Stable interval appearance of the cardiomediastinal silhouette. Mild to moderate cardiomegaly. LUNGS / PLEURA: No significant pulmonary abnormality. BONES: No significant osseous abnormality. ADDITIONAL FINDINGS: No significant additional findings. IMPRESSION: 1. No active cardiopulmonary disease. Stable cardiomegaly. Signer Name: Armen Warren II, MD Signed: 04/21/2022 7:25 AM Workstation Name: [id number]
[2022-04-21 07:47] LABS: Creatine Kinase MB 3.5 ng/mL (0.0-4.0)
[2022-04-21 07:52] LABS: Albumin 4.1 g/dL (3.9-5); Calcium 10.1 mg/dL (8.4-10.2)
[2022-04-21] MEDS ORDERED: SODIUM POLYSTYRENE 15 GM/60 ML ORAL LIQD PO ONE ×2 (07:56→19:15)
[2022-04-21] MEDS ORDERED: DEXTROSE 50% IN WATER (25GM) 50 ML SYRINGE IV ONE (07:57)
[2022-04-21] MEDS ORDERED: INSULIN REGULAR, HUMAN 100 UNITS/1 ML IV ONE (07:57)
[2022-04-21] MEDS ORDERED: SODIUM CHLORIDE 0.9% 1000 ML 1,000 ML IV ONE (07:57)
[2022-04-21] MEDS ORDERED: CALCIUM CHLORIDE 1,000 MG in SODIUM CHLORIDE 0.9% 100 ML IV ONE (08:30)
[2022-04-21] MEDS ORDERED: METOPROLOL TARTRATE 5 MG/5 ML INJ IV ONE (08:33)
--- NOTE | 2022-04-21 08:42 | Emergency Department Report ---
ED General Adult HPI - General Chief complaint: Chest Pain Stated complaint: CHEST PAIN Time Seen by Provider: 04/21/22 06:45 Source: patient Mode of arrival: Ambulatory Limitations: No Limitations - History of Present Illness Initial comments: chest pain that started tonight, states "feels tight" pt denies hx a-fib on eliquis pt states went to the [facility] yesterday Dr Gonsales and was told to come to the ER if the pain gets worse. pt was given medication at the [facility] yesterday that was told to take for 30 days he doesn;t know what is the name , was taken yesterday and today, with no relief "I forgot it" so pt unsure what the medication is Radiation: non-radiation Associated Symptoms: chest pain, shortness of breath - Related Data Home Medications Medication Instructions Recorded Confirmed Last Taken oxyCODONE /ACETAMINOPHEN [Percocet 1 tab PO Q6HR PRN 01/17/22 01/17/22 Unknown 5/325 mg] Previous Rx's Medication Instructions Recorded Last Taken Type Acetaminophen [Acetaminophen TAB] 650 mg PO Q4H PRN #15 tablet 08/05/18 Unknown Rx Albuterol Mdi (or & Nicu Only) 2 puff IH QID PRN #1 inhalation 01/04/20 Unknown Rx [ProAir HFA Inhaler] Apixaban [Eliquis] 5 mg PO BID #60 tablet 01/20/22 Unknown Rx Apixaban [Eliquis] 5 mg PO Q12HR #60 tablet 01/20/22 Unknown Rx Aspirin [Aspirin BABY CHEW TAB] 81 mg PO QDAY #30 tab.chew 01/20/22 Unknown Rx Colchicine [Colcrys] 0.6 mg PO DAILY #30 tab 01/20/22 Unknown Rx Colchicine [Colcrys] 0.6 mg PO QDAY tablet 01/20/22 Unknown Rx Cyclobenzaprine HCl [Flexeril 5 MG 5 mg PO TID PRN #9 tab 01/20/22 Unknown Rx TAB] Fluticasone [Flonase] 1 spray NS QDAY #1 bottle 01/20/22 Unknown Rx Furosemide [Lasix TAB] 40 mg PO DAILY #30 tablet 01/20/22 Unknown Rx Spironolactone [Aldactone] 50 mg PO QDAY #30 tablet 01/20/22 Unknown Rx allopurinoL [Zyloprim] 100 mg PO QDAY #30 01/20/22 Unknown Rx carvediloL [Coreg] 12.5 mg PO BID #60 tablet 01/20/22 Unknown Rx glipiZIDE [Glucotrol] 10 mg PO BID #60 01/20/22 Unknown Rx lisinopriL [Zestril TAB] 40 mg PO QDAY #30 tablet 01/20/22 Unknown Rx Allergies Allergy/AdvReac Type Severity Reaction Status Date / Time Penicillins AdvReac Unknown Verified 01/17/22 11:56 ED Review of Systems ROS: Stated complaint: CHEST PAIN Other details as noted in HPI Constitutional: denies: chills, fever Eyes: denies: eye pain, eye discharge, vision change ENT: denies: ear pain, throat pain Respiratory: denies: cough, shortness of breath, wheezing Cardiovascular: denies: chest pain, palpitations Endocrine: no symptoms reported Gastrointestinal: denies: abdominal pain, nausea, diarrhea Genitourinary: denies: urgency, dysuria Musculoskeletal: denies: back pain, joint swelling, arthralgia Skin: denies: rash, lesions Neurological: denies: headache, weakness, paresthesias Psychiatric: denies: anxiety, depression Hematological/Lymphatic: denies: easy bleeding, easy bruising ED Past Medical Hx - Past Medical History Hx Hypertension: Yes Hx Congestive Heart Failure: Yes Hx Diabetes: Yes Hx Renal Disease: Yes Hx Asthma: No Hx COPD: No - Surgical History Past Surgical History?: Yes Hx Internal Defibrillator: Yes Additional Surgical History: HERNIA REPAIR - Social History Smoking Status: Never Smoker Substance Use Type: None - Medications Home Medications: Home Medications Medication Instructions Recorded Confirmed Last Taken Type Acetaminophen [Acetaminophen TAB] 650 mg PO Q4H PRN #15 tablet 08/05/18 01/18/22 Unknown Rx Albuterol Mdi (or & Nicu Only) 2 puff IH QID PRN #1 inhalation 01/04/20 01/18/22 Unknown Rx [ProAir HFA Inhaler] oxyCODONE /ACETAMINOPHEN [Percocet 1 tab PO Q6HR PRN 01/17/22 01/17/22 Unknown History 5/325 mg] Apixaban [Eliquis] 5 mg PO BID #60 tablet 01/20/22 Unknown Rx Apixaban [Eliquis] 5 mg PO Q12HR #60 tablet 01/20/22 Unknown Rx Aspirin [Aspirin BABY CHEW TAB] 81 mg PO QDAY #30 tab.chew 01/20/22 Unknown Rx Colchicine [Colcrys] 0.6 mg PO DAILY #30 tab 01/20/22 Unknown Rx Colchicine [Colcrys] 0.6 mg PO QDAY tablet 01/20/22 Unknown Rx Cyclobenzaprine HCl [Flexeril 5 MG 5 mg PO TID PRN #9 tab 01/20/22 Unknown Rx TAB] Fluticasone [Flonase] 1 spray NS QDAY #1 bottle 01/20/22 Unknown Rx Furosemide [Lasix TAB] 40 mg PO DAILY #30 tablet 01/20/22 Unknown Rx Spironolactone [Aldactone] 50 mg PO QDAY #30 tablet 01/20/22 Unknown Rx allopurinoL [Zyloprim] 100 mg PO QDAY #30 01/20/22 Unknown Rx carvediloL [Coreg] 12.5 mg PO BID #60 tablet 01/20/22 Unknown Rx glipiZIDE [Glucotrol] 10 mg PO BID #60 01/20/22 Unknown Rx lisinopriL [Zestril TAB] 40 mg PO QDAY #30 tablet 01/20/22 Unknown Rx ED Physical Exam - General Limitations: No Limitations General appearance: alert, in no apparent distress - Head Head exam: Present: atraumatic, normocephalic - Eye Eye exam: Present: normal appearance - ENT ENT exam: Present: mucous membranes moist - Neck Neck exam: Present: normal inspection - Respiratory Respiratory exam: Present: rales. Absent: respiratory distress - Cardiovascular Cardiovascular Exam: Present: tachycardia, irregular rhythm. Absent: systolic murmur, diastolic murmur, rubs, gallop - GI/Abdominal GI/Abdominal exam: Present: soft, normal bowel sounds - Rectal Rectal exam: Present: deferred - Extremities Exam Extremities exam: Present: normal inspection - Back Exam Back exam: Present: normal inspection - Neurological Exam Neurological exam: Present: alert, oriented X3 - Psychiatric Psychiatric exam: Present: normal affect, normal mood - Skin Skin exam: Present: warm, dry, intact, normal color. Absent: rash ED Course Vital Signs 04/21/22 01:34 Temperature 98.1 F Pulse Rate 107 H Respiratory 24 Rate Blood Pressure 116/83 O2 Sat by Pulse 97 Oximetry ED Medical Decision Making - Lab Data Result diagrams: 04/21/22 06:55 04/21/22 06:55 - EKG Data -: EKG Interpreted by Me - EKG Data Interpretation: other (afib rvr ) - Radiology Data Radiology results: report reviewed, image reviewed - Medical Decision Making work up showed hyperkalemia , protocol appliued, spoke with dr acosta and will consult dr gonsales Critical care attestation.: If time is entered above; I have spent that time in minutes in the direct care of this critically ill patient, excluding procedure time. ED Disposition Clinical Impression: Chest pain, Atrial fibrillation with RVR, Shortness of breath, Hyperkalemia, Renal impairment Disposition: ADMITTED INPATIENT Is pt being admited?: Yes Does the pt Need Aspirin: No Condition: Stable Instructions: Nonspecific Chest Pain, Adult Referrals: RIYA SWENSON [Other] - 3-5 Days
--- NOTE | 2022-04-21 10:23 | Electrocardiograph Report ---
[facility] Test Date: 2022-04-21 Test Time: 01:34:25 Pat Name: CHEIKH RAGSDALE JR Department: Room: Gender: M Post Adoption Coordinator: OCTAVIANO : 1955 Requested By: SIVA VALENCIA Order Number: [id number] Reading MD: Med Barr Measurements Intervals [place] Rate: 105 P: CO: QRS: -75 QRSD: 145 T: 119 QT: 366 QTc: 484 Interpretive Statements Atrial fibrillation Ventricular premature complex Nonspecific IVCD with LAD LVH with secondary repolarization abnormality Compared to ECG 01/19/2022 11:19:33 Ventricular premature complex(es) now present Intraventricular conduction delay now present Left ventricular hypertrophy now present Early repolarization now present Left bundle-branch block no longer present Electronically Signed On 04-21-2022 10:22:57 EDT by Med Barr
[2022-04-21] MEDS ORDERED: ONDANSETRON 4 MG/2 ML INJ IV PRN (10:57)
[2022-04-21] MEDS ORDERED: ACETAMINOPHEN 325 MG TAB PO PRN (10:57)
[2022-04-21] MEDS ORDERED: oxyCODONE /ACETAMINOPHEN 5-325MG TAB PO PRN (10:57)
[2022-04-21] MEDS ORDERED: MORPHINE 4 MG/1 ML INJ IV PRN (10:57)
[2022-04-21] MEDS ORDERED: HEPARIN 5,000 UNIT/1 ML VIAL SUB-Q SCH (14:00)
--- NOTE | 2022-04-21 17:43 | Consultation ---
History of Present Illness - Reason for Consult Consult date: 04/21/22 chronic renal failure, hyperkalemia Medications and Allergies Allergies Allergy/AdvReac Type Severity Reaction Status Date / Time Penicillins AdvReac Unknown Verified 01/17/22 11:56 Home Medications Medication Instructions Recorded Confirmed Last Taken Type Acetaminophen [Acetaminophen TAB] 650 mg PO Q4H PRN #15 tablet 08/05/18 01/18/22 Unknown Rx Albuterol Mdi (or & Nicu Only) 2 puff IH QID PRN #1 inhalation 01/04/20 01/18/22 Unknown Rx [ProAir HFA Inhaler] oxyCODONE /ACETAMINOPHEN [Percocet 1 tab PO Q6HR PRN 01/17/22 01/17/22 Unknown History 5/325 mg] Apixaban [Eliquis] 5 mg PO BID #60 tablet 01/20/22 Unknown Rx Apixaban [Eliquis] 5 mg PO Q12HR #60 tablet 01/20/22 Unknown Rx Aspirin [Aspirin BABY CHEW TAB] 81 mg PO QDAY #30 tab.chew 01/20/22 Unknown Rx Colchicine [Colcrys] 0.6 mg PO DAILY #30 tab 01/20/22 Unknown Rx Colchicine [Colcrys] 0.6 mg PO QDAY tablet 01/20/22 Unknown Rx Cyclobenzaprine HCl [Flexeril 5 MG 5 mg PO TID PRN #9 tab 01/20/22 Unknown Rx TAB] Fluticasone [Flonase] 1 spray NS QDAY #1 bottle 01/20/22 Unknown Rx Furosemide [Lasix TAB] 40 mg PO DAILY #30 tablet 01/20/22 Unknown Rx Spironolactone [Aldactone] 50 mg PO QDAY #30 tablet 01/20/22 Unknown Rx allopurinoL [Zyloprim] 100 mg PO QDAY #30 01/20/22 Unknown Rx carvediloL [Coreg] 12.5 mg PO BID #60 tablet 01/20/22 Unknown Rx glipiZIDE [Glucotrol] 10 mg PO BID #60 01/20/22 Unknown Rx lisinopriL [Zestril TAB] 40 mg PO QDAY #30 tablet 01/20/22 Unknown Rx Active Meds: Active Medications Acetaminophen (Acetaminophen 325 Mg Tab) 650 mg PO Q4H PRN PRN Reason: Pain MILD(1-3)/Fever >100.5/MIX Furosemide (Furosemide 40 Mg/4 Ml Inj) 40 mg IV 0600,1800 [facility] Heparin Sodium (Porcine) (Heparin 5,000 Unit/1 Ml Vial) 5,000 unit SUB-Q Q8HR [facility] Last Admin: 04/21/22 13:43 Dose: 5,000 unit Morphine Sulfate (Morphine 4 Mg/1 Ml Inj) 2 mg IV Q4H PRN PRN Reason: Pain , Severe (7-10) Ondansetron HCl (Ondansetron 4 Mg/2 Ml Inj) 4 mg IV Q8H PRN PRN Reason: Nausea And Vomiting Oxycodone/Acetaminophen (Oxycodone /Acetaminophen 5-325mg Tab) 1 tab PO Q6H PRN PRN Reason: Pain, Moderate (4-6) Last Admin: 04/21/22 15:27 Dose: 1 tab Sodium Chloride (Sodium Chloride 0.9% 10 Ml Flush Syringe) 10 ml IV BID [facility] Sodium Chloride (Sodium Chloride 0.9% 10 Ml Flush Syringe) 10 ml IV PRN PRN PRN Reason: LINE FLUSH Exam - Vital Signs Vital signs: Vital Signs Temp Pulse Resp BP Pulse Ox 98.1 F 107 H 24 116/83 97 04/21/22 01:34 04/21/22 01:34 04/21/22 01:34 04/21/22 01:34 04/21/22 01:34 Results - Lab Results 04/21/22 22:48 04/22/22 05:21 Most recent lab results Calcium 10.1 mg/dL (8.4-10.2) 04/21/22 06:55 Assessment and Plan Impression: * Stage chronic kidney disease * Hyperkalemia * Atrial fibrillation w/ RVR * Fluid overload Plan: * No acute need for hemodialysis at this time * Medical management of electrolytes * Rate control per cardiology * Will start Lasix 40mg IV BID -patient with conversational dyspnea * Dose medicatons for renal function * Avoid potential nephrotoxins * AM labs
--- NOTE | 2022-04-21 18:23 | History and Physical Report ---
History of Present Illness Date of examination: 04/21/22 Date of admission: 04/21/22 10:57 Chief complaint: Chest pain/shortness of breath History of present illness: Patient is a 67-year-old male past medical history of chronic heart failure status post defibrillator placement, chronic kidney disease (stage V), hypertension, gout, atrial fibrillation on Eliquis, and [id number] type 2 diabetes mellitus who presented with worsening shortness of breath in addition to chest tightness over the previous few days. The patient describes going to his detective supervisor yesterday (Dr. Donnelly) recommended that he present to the ED should his chest tightness worsen. Patient describes becoming more short of breath with walking longer distances and a mild increase in his chronic bilateral lower extremity swelling. Patient denies any fevers, chills, co nfusion, nausea, vomiting, abdominal pain, decreased urinary output, sick contacts. In the ED, the patient was found hemodynamically stable and saturating approximately 97% on room air. The patient labs were remarkable for hyperkalemia with potassium of 6.7 and elevated proBNP of 13,801. The patient had unremarkable troponins. The patient was administered D50, insulin 10 units, for medical management of hyperkalemia. The patient is being admitted for hyperkalemia management. Past History Past Medical History: atrial fib (On Eliquis), CAD, diabetes, heart failure (With defibrillator placement), hypertension Past Surgical History: hernia repair, Other (Defibrillator placement) Social history: single, lives with family, full code Family history: diabetes, hypertension Medications and Allergies Allergies Allergy/AdvReac Type Severity Reaction Status Date / Time Penicillins AdvReac Unknown Verified 01/17/22 11:56 Home Medications Medication Instructions Recorded Confirmed Last Taken Type Acetaminophen [Acetaminophen TAB] 650 mg PO Q4H PRN #15 tablet 08/05/18 01/18/22 Unknown Rx Albuterol Mdi (or & Nicu Only) 2 puff IH QID PRN #1 inhalation 01/04/20 01/18/22 Unknown Rx [ProAir HFA Inhaler] oxyCODONE /ACETAMINOPHEN [Percocet 1 tab PO Q6HR PRN 01/17/22 01/17/22 Unknown History 5/325 mg] Apixaban [Eliquis] 5 mg PO BID #60 tablet 01/20/22 Unknown Rx Apixaban [Eliquis] 5 mg PO Q12HR #60 tablet 01/20/22 Unknown Rx Aspirin [Aspirin BABY CHEW TAB] 81 mg PO QDAY #30 tab.chew 01/20/22 Unknown Rx Colchicine [Colcrys] 0.6 mg PO DAILY #30 tab 01/20/22 Unknown Rx Colchicine [Colcrys] 0.6 mg PO QDAY tablet 01/20/22 Unknown Rx Cyclobenzaprine HCl [Flexeril 5 MG 5 mg PO TID PRN #9 tab 01/20/22 Unknown Rx TAB] Fluticasone [Flonase] 1 spray NS QDAY #1 bottle 01/20/22 Unknown Rx Furosemide [Lasix TAB] 40 mg PO DAILY #30 tablet 01/20/22 Unknown Rx Spironolactone [Aldactone] 50 mg PO QDAY #30 tablet 01/20/22 Unknown Rx allopurinoL [Zyloprim] 100 mg PO QDAY #30 01/20/22 Unknown Rx carvediloL [Coreg] 12.5 mg PO BID #60 tablet 01/20/22 Unknown Rx glipiZIDE [Glucotrol] 10 mg PO BID #60 01/20/22 Unknown Rx lisinopriL [Zestril TAB] 40 mg PO QDAY #30 tablet 01/20/22 Unknown Rx Active Meds: Active Medications Acetaminophen (Acetaminophen 325 Mg Tab) 650 mg PO Q4H PRN PRN Reason: Pain MILD(1-3)/Fever >100.5/MIX Furosemide (Furosemide 40 Mg/4 Ml Inj) 40 mg IV 0600,1800 [facility] Heparin Sodium (Porcine) (Heparin 5,000 Unit/1 Ml Vial) 5,000 unit SUB-Q Q8HR [facility] Last Admin: 04/21/22 13:43 Dose: 5,000 unit Morphine Sulfate (Morphine 4 Mg/1 Ml Inj) 2 mg IV Q4H PRN PRN Reason: Pain , Severe (7-10) Ondansetron HCl (Ondansetron 4 Mg/2 Ml Inj) 4 mg IV Q8H PRN PRN Reason: Nausea And Vomiting Oxycodone/Acetaminophen (Oxycodone /Acetaminophen 5-325mg Tab) 1 tab PO Q6H PRN PRN Reason: Pain, Moderate (4-6) Last Admin: 04/21/22 15:27 Dose: 1 tab Sodium Chloride (Sodium Chloride 0.9% 10 Ml Flush Syringe) 10 ml IV BID [facility] Sodium Chloride (Sodium Chloride 0.9% 10 Ml Flush Syringe) 10 ml IV PRN PRN PRN Reason: LINE FLUSH Sodium Polystyrene Sulfonate (Sodium Polystyrene 15 Gm/60 Ml Oral Liqd) 30 gm PO ONCE ONE Stop: 04/21/22 18:16 Review of Systems All systems: negative Cardiovascular: chest pain, shortness of breath, leg edema Gastrointestinal: constipation Exam - Constitutional Vitals: Temp Pulse Resp BP Pulse Ox 98.1 F 117 H 24 116/83 97 04/21/22 01:34 04/21/22 09:09 04/21/22 01:34 04/21/22 01:34 04/21/22 01:34 General appearance: Present: no acute distress, well-nourished - EENT Eyes: Present: PERRL, EOM intact ENT: hearing intact, clear oral mucosa, dentition normal - Neck Neck: Present: supple, normal ROM - Respiratory Respiratory effort: normal Respiratory: bilateral: CTA - Cardiovascular Rhythm: regular Heart Sounds: Present: S1 & S2 - Extremities Extremities: no ischemia, pulses intact, pulses symmetrical, normal temperature, normal color Extremity abnormal: edema (1+ pitting edema bilateral lower extremities) Peripheral Pulses: within normal limits - Abdominal General gastrointestinal: Present: soft, non-tender, non-distended, normal bowel sounds Male genitourinary: Present: deferred - Rectal Rectal Exam: deferred - Integumentary Integumentary: Present: clear, warm, dry - Musculoskeletal Musculoskeletal: strength equal bilaterally - Psychiatric Psychiatric: appropriate mood/affect, memory intact, cooperative - Neurologic Neurologic: CNII-XII intact, moves all extremities - Allied Health Allied health notes reviewed: nursing HEART Score - HEART Score Troponin: Troponin T 0.020 ng/mL (0.00-0.029) 04/21/22 06:55 Results - Labs CBC & Chem 7: 04/21/22 06:55 04/21/22 06:55 Labs: Laboratory Last Values WBC 5.7 K/mm3 (4.5-11.0) 04/21/22 06:55 RBC 5.02 M/mm3 (3.65-5.03) 04/21/22 06:55 Hgb 14.7 gm/dl (11.8-15.2) 04/21/22 06:55 Hct 46.3 % (35.5-45.6) H 04/21/22 06:55 MCV 92 fl (84-94) 04/21/22 06:55 MCH 29 pg (28-32) 04/21/22 06:55 MCHC 32 % (32-34) 04/21/22 06:55 RDW 15.2 % (13.2-15.2) 04/21/22 06:55 Plt Count 174 K/mm3 (140-440) 04/21/22 06:55 Lymph % (Auto) 25.0 % (13.4-35.0) 04/21/22 06:55 [place] % (Auto) 9.7 % (0.0-7.3) H 04/21/22 06:55 Eos % (Auto) 2.3 % (0.0-4.3) 04/21/22 06:55 Baso % (Auto) 0.6 % (0.0-1.8) 04/21/22 06:55 Lymph # (Auto) 1.4 K/mm3 (1.2-5.4) 04/21/22 06:55 [place] # (Auto) 0.6 K/mm3 (0.0-0.8) 04/21/22 06:55 Eos # (Auto) 0.1 K/mm3 (0.0-0.4) 04/21/22 06:55 Baso # (Auto) 0.0 K/mm3 (0.0-0.1) 04/21/22 06:55 Seg Neutrophils % 62.4 % (40.0-70.0) 04/21/22 06:55 Seg Neutrophils # 3.6 K/mm3 (1.8-7.7) 04/21/22 06:55 Sodium 140 mmol/L (137-145) 04/21/22 06:55 Potassium 6.7 mmol/L (3.6-5.0) H* 04/21/22 06:55 Chloride 111.4 mmol/L (98-107) H 04/21/22 06:55 Carbon Dioxide 16 mmol/L (22-30) L 04/21/22 06:55 Anion Gap 19 mmol/L 04/21/22 06:55 BUN 46 mg/dL (9-20) H 04/21/22 06:55 Creatinine 2.5 mg/dL (0.8-1.3) H 04/21/22 06:55 Estimated GFR 31 ml/min 04/21/22 06:55 BUN/Creatinine Ratio 18 % 04/21/22 06:55 Glucose 103 mg/dL (75-100) H 04/21/22 06:55 Calcium 10.1 mg/dL (8.4-10.2) 04/21/22 06:55 Total Bilirubin 1.00 mg/dL (0.1-1.2) 04/21/22 06:55 AST 14 units/L (5-40) 04/21/22 06:55 ALT 16 units/L (7-56) 04/21/22 06:55 Alkaline Phosphatase 101 units/L (35-129) 04/21/22 06:55 Total Creatine Kinase 77 units/L (55-170) 04/21/22 06:55 CK-MB (CK-2) 3.5 ng/mL (0.0-4.0) 04/21/22 06:55 CK-MB (CK-2) Rel Index 4.5 (0-4) H 04/21/22 06:55 Troponin T 0.020 ng/mL (0.00-0.029) 04/21/22 06:55 NT-Pro-B Natriuret Pep 20681 pg/mL (0-900) H 04/21/22 06:55 Total Protein 8.0 g/dL (6.3-8.2) 04/21/22 06:55 Albumin 4.1 g/dL (3.9-5) 04/21/22 06:55 Albumin/Globulin Ratio 1.1 % 04/21/22 06:55 Assessment and Plan Assessment and plan: Patient is a 67-year-old male past medical history of chronic heart failure status post defibrillator placement, chronic kidney disease (stage V), hypertension, gout, atrial fibrillation on Eliquis, and xex-nqxiuoy-trdeyqpmy type 2 diabetes mellitus who presented with worsening shortness of breath in addition to chest tightness over the previous few days. The patient describes going to his detective supervisor yesterday (Dr. Donnelly) recommended that he present to the ED should his chest tightness worsen. Patient describes becoming more short of breath with walking longer distances and a mild increase in his chronic bilateral lower extremity swelling. Patient denies any fevers, chills, confusion, nausea, vomiting, abdominal pain, decreased urinary output, sick contacts. In the ED, the patient was found hemodynamically stable and saturating approximately 97% on room air. The patient labs were remarkable for hyperkalemia with potassium of 6.7 and elevated proBNP of 13,801. The patient had unremarkable troponins. The patient was administered D50, insulin 10 units, for medical management of hyperkalemia. The patient is being admitted for hyperkalemia management. #Hyperkalemia #CKD stage V #Elevated proBNP Potassium 6.7. proBNP 13,801. Likely secondary to chronic CKD stage V. Creatinine 2.5 Initiated with D50 and IV insulin in the ED. Repeating cocktail and adding Kayexalate for further potassium shifting. Pending multiple repeat BMPs for reevaluation. Nephrology consulted; pending recs Renally dose meds and avoid nephrotoxic drugs. Continue to monitor. Unremarkable troponins. Chest x-ray without pleural effusions, consolidations, or increased interstitial markings suggestive of acute exacerbation. #Chronic systolic heart failure - Continue CHF exacerbation protocol: Telemetry, Strict I/O, monitor urine output every shift, daily weights, afterload reduction, low-sodium diet, and fluid restriction of approximately 1.5 mL/day -Continue home goal-directed therapy: lisinopril 40 mg daily, Coreg 12.5 mg daily, spironolactone 50 mg daily, aspirin 81 mg daily - Continue to monitor #Non-insulin dependent type II diabetes mellitus - hemoglobin A1c: Unknown - home regimen: Glipizide 10 mg twice daily - current regimen: Glipizide 10 mg twice daily - blood glucose goal 140-180 while inpatient - continue to monitor #Gout Continue home allopurinol 100 mg daily #Obesity #Weight loss counseling #Exercise counseling - BMI 30.6 - Counseled patient on the importance of weight loss, incorporating exercise, and dietary changes (lean meats, fresh fruits and vegetables, and water intake). Patient expresses understanding. - Time: +15 min Critical Care Billing: The high probability of a clinically significant, sudden or life threatening deterioration of the [renal] system(s) required my full and direct attention, intervention and personal management. The aggregate critical care time was [60] minutes. This time is in addition to time spent performing reported procedures but includes the following: [x] Data Review and interpretation [x] Patient assessment and monitoring of vital signs [x] Documentation [x] Medication orders and management Advance Directives: No VTE prophylaxis?: Chemical Plan of care discussed with patient/family: Yes
[2022-04-21] MEDS ORDERED: ALBUTEROL 8.5 GM MDI INHALATION IH PRN (18:24)
[2022-04-21 18:45] LABS: Calcium 9.7 mg/dL (8.4-10.2)
[2022-04-21] MEDS: FUROSEMIDE 40 MG/4 ML INJ IV SCH (18:53)
[2022-04-21] MEDS ORDERED: NON-FORMULARY EACH (Apixaban 5 MG Tablet) PO SCH (22:00)
[2022-04-21] MEDS: glipiZIDE 10 MG TAB PO SCH (22:43)
[2022-04-21] MEDS: APIXABAN 5 MG TAB PO SCH (22:43)
[2022-04-21] MEDS: carvediloL 12.5 MG TAB PO SCH (22:43)
[2022-04-21 23:56] LABS: Mean Corpuscular HGB Conc 31 % (32-34); Mean Corpuscular Volume 93 fl (84-94); Platelet Count 183 K/mm3 (140-440); Red Blood Count 5.17 M/mm3 (3.65-5.03); Red Cell Distribution Width 14.9 % (13.2-15.2)
[2022-04-21 23:57] LABS: Hematocrit 47.9 % (35.5-45.6); Hemoglobin 14.8 gm/dl (11.8-15.2)
[2022-04-21 23:58] LABS: INR 1.29 (0.87-1.13); Partial Thromboplastin Time 32.6 Sec. (24.2-36.6)
[2022-04-22 00:02] LABS: Calcium 10.4 mg/dL (8.4-10.2)
[2022-04-22 05:18] VITALS: BP 129/97
[2022-04-22 06:12] LABS: Calcium 10.1 mg/dL (8.4-10.2)
[2022-04-22] MEDS: FUROSEMIDE 40 MG/4 ML INJ IV SCH (06:13)
[2022-04-22] MEDS ORDERED: SODIUM POLYSTYRENE 15 GM/60 ML ORAL LIQD PO NR (07:23)
[2022-04-22] MEDS ORDERED: MAGNESIUM SULFATE 1 GM in SODIUM CHLORIDE 0.9% 50 ML IV ONE (08:30)
[2022-04-22] MEDS: glipiZIDE 10 MG TAB PO SCH (09:07)
[2022-04-22] MEDS: carvediloL 12.5 MG TAB PO SCH (09:08)
[2022-04-22] MEDS: APIXABAN 5 MG TAB PO SCH (09:08)
[2022-04-22] MEDS ORDERED: LISINOPRIL 40 MG TAB PO SCH (10:00)
[2022-04-22] MEDS ORDERED: ASPIRIN 81 MG TAB CHEW PO SCH (10:00)
[2022-04-22] MEDS ORDERED: SPIRONOLACTONE 50 MG TAB PO SCH (10:00)
[2022-04-22] MEDS ORDERED: allopurinoL 100 MG TAB PO SCH (10:00)
--- NOTE | 2022-04-22 10:31 | Discharge Summary ---
Providers - Providers Date of Admission: 04/21/22 10:57 Date of discharge: 04/22/22 Attending physician: AARON MIRAMONTES MD 04/21/22 08:39 Consult to Physician [CONS] Stat Comment: Consulting Provider: NAI HOLLEY Physician Instructions: Reason For Exam: hyperkalemia Hospitalization Reason for admission: Hyperkalemia Condition: Stable Pertinent studies: Reviewed. Procedures: None. Hospital course: Patient is a 67-year-old male past medical history of chronic heart failure status post defibrillator placement, chronic kidney disease (stage V), hypertension, gout, atrial fibrillation on Eliquis, and klp-hoxcpep-slkkppwgs type 2 diabetes mellitus who presented with worsening shortness of breath in addition to chest tightness over the previous few days. The patient describes going to his performing arts road manager yesterday (Dr. Donnelly) recommended that he present to the ED should his chest tightness worsen. Patient describes becoming more short of breath with walking longer distances and a mild increase in his chronic bilateral lower extremity swelling. Patient denies any fevers, chills, confusion, nausea, vomiting, abdominal pain, decreased urinary output, sick contacts. In the ED, the patient was found hemodynamically stable and saturating approximately 97% on room air. The patient labs were remarkable for hyperkalemia with potassium of 6.7 and elevated proBNP of 13,801. The patient had unremarkable troponins. The patient was administered D50, insulin 10 units, and Kayexalate for medical management of hyperkalemia. The patient is being admitted for hyperkalemia management. Nephrology was consulted, and they recommended medical management. At this point in time the patient will not be initiated on hemodialysis. The patient's hyperkalemia has significantly improved and is since resolved. Patient is medically clear for discharge. Disposition: 01 HOME / SELF CARE / HOMELESS Final Discharge Diagnosis (Prints w/discharge instructions): Hyperkalemia, chronic kidney disease stage V, elevated proBNP, chronic systolic heart failure, noninsulin-dependent type 2 diabetes mellitus, gout, obesity, atrial fibrillation on Eliquis Time spent for discharge: 45 min Core Measure Documentation - Palliative Care Palliative Care/ Comfort Measures: Not Applicable - Core Measures Any of the following diagnoses?: history only Exam - Constitutional Vitals: Temp Pulse Resp BP Pulse Ox 97.6 F 83 19 129/97 100 04/22/22 05:16 04/22/22 05:16 04/22/22 05:16 04/22/22 05:16 04/22/22 06:59 General appearance: Present: no acute distress, well-nourished, obese - EENT Eyes: Present: PERRL, EOM intact ENT: hearing intact, clear oral mucosa, dentition normal - Neck Neck: Present: supple, normal ROM - Respiratory Respiratory effort: normal Respiratory: bilateral: rhonchi - Cardiovascular Rhythm: regular Heart Sounds: Present: S1 & S2 - Extremities Extremities: no ischemia, pulses intact, pulses symmetrical, normal temperature, normal color, Full ROM Extremity abnormal: edema (Trace edema bilateral lower extremities) Peripheral Pulses: within normal limits - Abdominal General gastrointestinal: Present: soft, non-tender, non-distended, normal bowel sounds Male genitourinary: Present: deferred - Rectal Rectal Exam: deferred - Integumentary Integumentary: Present: clear, warm, dry - Musculoskeletal Musculoskeletal: strength equal bilaterally - Psychiatric Psychiatric: appropriate mood/affect, intact judgment & insight, memory intact, cooperative - Neurologic Neurologic: CNII-XII intact, moves all extremities - Allied Health Allied health notes reviewed: nursing Plan Activity: no restrictions Diet: low salt, diabetic Additional Instructions: Patient is a 67-year-old male past medical history of chronic heart failure status post defibrillator placement, chronic kidney disease (stage V), hypertension, gout, atrial fibrillation on Eliquis, and pux-[id number] type 2 diabetes mellitus who presented with worsening shortness of breath in addition to chest tightness over the previous few days. The patient describes going to his performing arts road manager yesterday (Dr. Donnelly) recommended that he present to the ED should his chest tightness worsen. Patient describes becoming more short of breath with walking longer distances and a mild increase in his chronic bilateral lower extremity swelling. Patient denies any fevers, chills, confusion, nausea, vomiting, abdominal pain, decreased urinary output, sick contacts. In the ED, the patient was found hemodynamically stable and saturating approximately 97% on room air. The patient labs were remarkable for hyperkalemia with potassium of 6.7 and elevated proBNP of 13,801. The patient had unremarkable troponins. The patient was administered D50, insulin 10 units, and Kayexalate for medical management of hyperkalemia. The patient is being admitted for hyperkalemia management. Nephrology was consulted, and they recommended medical management. At this point in time the patient will not be initiated on hemodialysis. The patient's hyperkalemia has significantly improved and is since resolved. Patient is medically clear for discharge. Care Plan Goals: Patient is medically clear for discharge. Assessment: Patient is a 67-year-old male past medical history of chronic heart failure status post defibrillator placement, chronic kidney disease (stage V), hypertension, gout, atrial fibrillation on Eliquis, and ixt-crarvhc-gtcrwwvkr type 2 diabetes mellitus who presented with worsening shortness of breath in addition to chest tightness over the previous few days. The patient describes going to his performing arts road manager yesterday (Dr. Donnelly) recommended that he present to the ED should his chest tightness worsen. Patient describes becoming more short of breath with walking longer distances and a mild increase in his chronic bilateral lower extremity swelling. Patient denies any fevers, chills, confusion, nausea, vomiting, abdominal pain, decreased urinary output, sick contacts. In the ED, the patient was found hemodynamically stable and saturating approximately 97% on room air. The patient labs were remarkable for hyperkalemia with potassium of 6.7 and elevated proBNP of 13,801. The patient had unremarkable troponins. The patient was administered D50, insulin 10 units, and Kayexalate for medical management of hyperkalemia. The patient is being admitted for hyperkalemia management. Nephrology was consulted, and they recommended medical management. At this point in time the patient will not be initiated on hemodialysis. The patient's hyperkalemia has significantly improved and is since resolved. Patient is medically clear for discharge. Follow up with: RIYA SWENSON [Other] - 3-5 Days Prescriptions: Spironolactone [Aldactone] 50 mg PO QDAY #30 tablet Aspirin [Aspirin BABY CHEW TAB] 81 mg PO QDAY #30 tab.chew carvediloL [Coreg] 12.5 mg PO BID #60 tablet Apixaban [Eliquis] 5 mg PO Q12HR #60 tablet glipiZIDE [Glucotrol] 10 mg PO BID #60 tab Furosemide [Lasix TAB] 40 mg PO BID #60 tablet lisinopriL [Zestril TAB] 40 mg PO QDAY #30 tablet
== END 2022-04-22 11:10 | disposition home or self-care (01) | DRG 641 ==
LOC: ED 01:28 → 3A 10:57
PROVIDERS: ADMIT Student in an Organized Health Care Education/Training Program; ATTEND Student in an Organized Health Care Education/Training Program
DX: E87.5 Hyperkalemia (principal); N18.5 Chronic kidney disease, stage 5; I50.22 Chronic systolic (congestive) heart failure; E11.22 Type 2 diabetes mellitus with diabetic chronic kidney disease; M10.9 Gout, unspecified; I48.91 Unspecified atrial fibrillation; I25.10 Atherosclerotic heart disease of native coronary artery without angina pectoris; Z83.3 Family history of diabetes mellitus; Z82.49 Family history of ischemic heart disease and other diseases of the circulatory system; E66.9 Obesity, unspecified; Z68.31 Body mass index [BMI] 31.0-31.9, adult
CPT/HCPCS: 36415; 71045; 80048; 80053; 82550; 82553; 83735; 83880; 84484; 85025; 85027; 85610; 85730; 93005; G0378; J3490; J1644; J1940; J3475; J7030

== ENCOUNTER 2022-06-15 10:38 | Emergency (ER) | payer MEDICARE ==
[2022-06-15] MEDS ORDERED: ASPIRIN 81 MG TAB CHEW PO ONE (22:32)
[2022-06-15] MEDS ORDERED: FUROSEMIDE 40 MG/4 ML INJ IV ONE (22:33)
--- NOTE | 2022-06-15 22:38 | Emergency Department Report ---
ED Chest Pain HPI - General Chief Complaint: Chest Pain Stated Complaint: CHEST AND R SHOULDER PAIN Time Seen by Provider: 06/15/22 21:24 Source: patient Mode of arrival: Ambulatory Limitations: No Limitations - History of Present Illness Initial Comments: 67-year-old male with a history of heart failure, HTn, DM and Asthma who presents with intermittent chest pain that has been going on since Monday at about 5 days ago progressively getting worse. Patient reports that he is not having any chest pain at this point. He rated the pain as 6/10 in severity at the peak. Pain radiates to the right shoulder. Patient was seen at [facility] on Monday but left before the evaluation could be completed. No fever or chills reported. Patient also reports some increased bilateral leg edema. No other modifying or associated factors reported. Severity scale (0 -10): 6 - Related Data Home Medications Medication Instructions Recorded Confirmed Last Taken oxyCODONE /ACETAMINOPHEN [Percocet 1 tab PO Q6HR PRN 01/17/22 01/17/22 Unknown 5/325 mg] Previous Rx's Medication Instructions Recorded Last Taken Type Acetaminophen [Acetaminophen TAB] 650 mg PO Q4H PRN #15 tablet 08/05/18 Unknown Rx Colchicine [Colcrys] 0.6 mg PO DAILY #30 tab 01/20/22 Unknown Rx Cyclobenzaprine HCl [Flexeril 5 MG 5 mg PO TID PRN #9 tab 01/20/22 Unknown Rx TAB] Fluticasone [Flonase] 1 spray NS QDAY #1 bottle 01/20/22 Unknown Rx Albuterol Mdi (or & Nicu Only) 2 puff IH QID PRN #1 inhalation 04/22/22 Unknown Rx [ProAir HFA Inhaler] Apixaban [Eliquis] 5 mg PO Q12HR #60 tablet 04/22/22 Unknown Rx Aspirin [Aspirin BABY CHEW TAB] 81 mg PO QDAY #30 tab.chew 04/22/22 Unknown Rx Furosemide [Lasix TAB] 40 mg PO BID #60 tablet 04/22/22 Unknown Rx Spironolactone [Aldactone] 50 mg PO QDAY #30 tablet 04/22/22 Unknown Rx allopurinoL [Zyloprim] 100 mg PO QDAY #30 tab 04/22/22 Unknown Rx carvediloL [Coreg] 12.5 mg PO BID #60 tablet 04/22/22 Unknown Rx glipiZIDE [Glucotrol] 10 mg PO BID #60 tab 04/22/22 Unknown Rx lisinopriL [Zestril TAB] 40 mg PO QDAY #30 tablet 04/22/22 Unknown Rx Furosemide [Lasix TAB] 80 mg PO BID 3 Days #6 tab NS 06/16/22 Unknown Rx Allergies Allergy/AdvReac Type Severity Reaction Status Date / Time Penicillins AdvReac Unknown Verified 06/16/22 16:46 Heart Score - HEART Score History: Moderately suspicious EKG: Non-specific Age: > 65 Risk factors: 1-2 risk factors Troponin: < normal limit HEART Score: 5 - EKG Read Time Time EKG Completed: 12:52 EKG Read Time: 12:56 ED Review of Systems ROS: Stated complaint: CHEST AND R SHOULDER PAIN Other details as noted in HPI Comment: All other systems reviewed and negative Cardiovascular: chest pain, edema (+2 bilateral pitting edema) ED Past Medical Hx - Past Medical History Hx Hypertension: Yes Hx Congestive Heart Failure: Yes Hx Diabetes: Yes Hx Renal Disease: Yes Hx Asthma: No Hx COPD: No Hx HIV: No - Surgical History Hx Internal Defibrillator: Yes Additional Surgical History: HERNIA REPAIR - Social History Smoking Status: Never Smoker - Medications Home Medications: Home Medications Medication Instructions Recorded Confirmed Last Taken Type Acetaminophen [Acetaminophen TAB] 650 mg PO Q4H PRN #15 tablet 08/05/18 01/18/22 Unknown Rx oxyCODONE /ACETAMINOPHEN [Percocet 1 tab PO Q6HR PRN 01/17/22 01/17/22 Unknown History 5/325 mg] Colchicine [Colcrys] 0.6 mg PO DAILY #30 tab 01/20/22 Unknown Rx Cyclobenzaprine HCl [Flexeril 5 MG 5 mg PO TID PRN #9 tab 01/20/22 Unknown Rx TAB] Fluticasone [Flonase] 1 spray NS QDAY #1 bottle 01/20/22 Unknown Rx Albuterol Mdi (or & Nicu Only) 2 puff IH QID PRN #1 inhalation 04/22/22 01/18/22 Unknown Rx [ProAir HFA Inhaler] Apixaban [Eliquis] 5 mg PO Q12HR #60 tablet 04/22/22 Unknown Rx Aspirin [Aspirin BABY CHEW TAB] 81 mg PO QDAY #30 tab.chew 04/22/22 Unknown Rx Furosemide [Lasix TAB] 40 mg PO BID #60 tablet 04/22/22 Unknown Rx Spironolactone [Aldactone] 50 mg PO QDAY #30 tablet 04/22/22 Unknown Rx allopurinoL [Zyloprim] 100 mg PO QDAY #30 tab 04/22/22 Unknown Rx carvediloL [Coreg] 12.5 mg PO BID #60 tablet 04/22/22 Unknown Rx glipiZIDE [Glucotrol] 10 mg PO BID #60 tab 04/22/22 Unknown Rx lisinopriL [Zestril TAB] 40 mg PO QDAY #30 tablet 04/22/22 Unknown Rx Furosemide [Lasix TAB] 80 mg PO BID 3 Days #6 tab NS 06/16/22 Unknown Rx ED Physical Exam - General Limitations: No Limitations General appearance: alert, in no apparent distress - Head Head exam: Present: normal inspection - Eye Eye exam: Present: normal appearance Pupils: Present: normal accommodation - ENT ENT exam: Present: normal exam, normal orophraynx, mucous membranes dry - Neck Neck exam: Present: normal inspection, full ROM. Absent: tenderness - Respiratory Respiratory exam: Present: normal lung sounds bilaterally. Absent: respiratory distress, chest wall tenderness, accessory muscle use - Cardiovascular Cardiovascular Exam: Present: regular rate, normal rhythm, normal heart sounds - GI/Abdominal GI/Abdominal exam: Present: soft, normal bowel sounds. Absent: distended, tenderness - Extremities Exam Extremities exam: Present: pedal edema (+2 pitting edema ) - Back Exam Back exam: Present: normal inspection - Neurological Exam Neurological exam: Present: alert, oriented X3 - Psychiatric Psychiatric exam: Present: normal affect, normal mood - Skin Skin exam: Present: warm, normal color ED Course Vital Signs 06/15/22 06/16/22 06/16/22 12:18 00:34 02:57 Temperature 98.0 F Pulse Rate 81 97 H 99 H Respiratory 22 25 H Rate Blood Pressure 119/96 125/99 133/82 [Right] O2 Sat by Pulse 98 94 97 Oximetry AMADO score - Amado Score Age > 65: (0) No Aspirin use within the Past 7 Days: (1) Yes 3 or more CAD Risk Factors: (1) Yes 2 or more Angina events in past 24 hrs: (1) Yes Known CAD with more than 50% Stenosis: (0) No Elevated Cardiac Markers: (0) No ST Deviation Greater than 0.5mm: (0) No AMADO Score: 3 ED Medical Decision Making - Lab Data Result diagrams: 06/15/22 22:47 06/15/22 22:47 - EKG Data -: EKG Interpreted by Me - EKG Data 06/15/22 22:48 Noted with atrial fibrillation at a rate of 98 bpm with left bundle branch block--but with no obvious no previous EKG to compare - Medical Decision Making Here with chest pain x 2 days but with noted bilateral pitting edema and a-fib--differential could be but not limited to myocardial infarction, pulmonary embolism, costochondritis, anxiety, gastritis, GERD, pancreatitis, and or pyelonephritis--in order to rule out the above-- so will go ahead and order routine cardiopulmonary work-up that include troponin, EKG, chest x-ray, BNP, CKMB, and CBC, CMP and urinalysis for any correctable infectious process or electrolyte abnormality as a cause. Considering history of CHF with noted +2 pitting edema -- exacerbation could be causing his problem so given Lasix 40 mg IV x 1-- while waiting for the above labs-- labs reviewed -noted with elevated BNP 18, 506 which consistent with acute exacerbation of CHF -- which likely contributed to the patient symptoms-- EKG noted with a-fib - when asked patient confirmed that he has history of a-fib-- Pt reports feeling better and put out more than 1L urine after the Lasix iv-- at this point will d/c pt home to double his Lasix 40 mg x 2 -- x 3 days and then follow up with his PCP who will reevaluate whether to continue to go back to initial dosage. Critical care attestation.: If time is entered above; I have spent that time in minutes in the direct care of this critically ill patient, excluding procedure time. ED Disposition Clinical Impression: Intermittent chest pain, Leg edema, Acute on chronic systolic CHF (congestive heart failure) Disposition: 01 HOME / SELF CARE / HOMELESS Is pt being admited?: No Does the pt Need Aspirin: No Condition: Stable Instructions: Heart Failure, Self Care, [id number], Nonspecific Chest Pain, Adult, Edema, [id number] Additional Instructions: It is important to double your Lasix from 40 mg to 80 mg PO twice a day for 3 days Please call and follow up with your doctor in the next 3-5 days for progress Call or return to ED if your symptoms worsen Be sure to raise your leg above your buttocks while sitting or lying down Prescriptions: Furosemide [Lasix TAB] 80 mg PO BID 3 Days #6 tab NS Referrals: PRIMARY CARE, [Primary Care Provider] - 3-5 Days Time of Disposition: 04:31
[2022-06-15 23:06] LABS: Basophils % (Auto) 0.7 % (0.0-1.8); Eosinophils # (Auto) 0.1 K/mm3 (0.0-0.4); Eosinophils % (Auto) 2.7 % (0.0-4.3); Hematocrit 41.6 % (35.5-45.6); Hemoglobin 13.1 gm/dl (11.8-15.2); Lymphocytes # (Auto) 1.6 K/mm3 (1.2-5.4); Lymphocytes % (Auto) 34.6 % (13.4-35.0); Mean Corpuscular HGB Conc 32 % (32-34); Mean Corpuscular Volume 94 fl (84-94); Monocytes # (Auto) 0.7 K/mm3 (0.0-0.8); Monocytes % (Auto) 14.2 % (0.0-7.3); Platelet Count 167 K/mm3 (140-440); Red Blood Count 4.41 M/mm3 (3.65-5.03); Red Cell Distribution Width 14.7 % (13.2-15.2)
[2022-06-15 23:14] LABS: INR 1.41 (0.87-1.13)
[2022-06-15 23:32] LABS: Calcium 9.5 mg/dL (8.4-10.2)
[2022-06-16 02:58] VITALS: BP 133/82
--- NOTE | 2022-06-16 07:41 | XRay Report ---
XR chest 1V ap INDICATION / CLINICAL INFORMATION: Chest Pain. COMPARISON: 04/21/2022 FINDINGS: SUPPORT DEVICES: AICD is unchanged. HEART /PULMONARY VASCULATURE: Stable cardiomegaly. Mild increased pulmonary vasculature congestion. LUNGS / PLEURA: Diminished lung volumes. No focal airspace consolidation. No sizable pleural effusion . No pneumothorax. ADDITIONAL FINDINGS: No significant additional findings. IMPRESSION: Cardiac enlargement with mild pulmonary vasculature congestion. Signer Name: Bunny Rivera MD Signed: 06/16/2022 7:36 AM Workstation Name: [id number]
--- NOTE | 2022-06-17 08:47 | Electrocardiograph Report ---
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
== END 2022-06-16 05:12 | disposition home or self-care (01) ==
LOC: ED 10:38
DX: R07.9 Chest pain, unspecified (principal); R22.43 Localized swelling, mass and lump, lower limb, bilateral; I50.22 Chronic systolic (congestive) heart failure; Z88.0 Allergy status to penicillin; E11.9 Type 2 diabetes mellitus without complications
CPT/HCPCS: 36415; 71045; 80053; 83690; 83880; 84484; 85025; 85610; 85730; 93005; 96374; 99284; J1940

== ENCOUNTER 2022-06-16 16:19 | Observation (INO) | payer MEDICAID, MEDICARE ==
--- NOTE | 2022-06-16 16:38 | Emergency Department Report ---
Blank Doc - Documentation Documentation: [facility] Consult Note # Demographics Consult Type: Acute Stroke Level 1 (0-4.5 hrs) Patient Location: Emergency Room First Name: Adiel Last Name: Deon zavala Date of : 1955 Age: 67 Gender: Male Facility: [facility] Time of Initial Page ( Time): 06/16/2022, 16:06 Time of Return Call ( Time): 06/16/2022, 16:07 # HPI History: presented with weakness , unsteady gait with fall that started at 1530 with slight headache. Patient is on eliquis for DVTs. Patient was recently in hospital for chest pain. EMS noting some facial droop on the right and some right sided weakness. # Scores Time of exam and NIHSS (): 06/16/2022, 16:22 Level of Consciousness 1a: [0] = Alert; keenly responsive LOC Questions 1b: [0] = Answers both questions correctly LOC Commands 1c: [0] = Performs both tasks correctly Best Gaze 2: [0] = Normal Visual 3: [0] = No visual loss Facial Palsy 4: [1] = Minor paralysis Motor Arm Left 5a: [0] = No drift Motor Arm Right 5b: [0] = No drift Motor Leg Left 6a: [0] = No drift Motor Leg Right 6b: [2] = Some effort against gravity Limb Ataxia 7: [0] = Absent Sensory 8: [0] = Normal Best Language 9: [0] = No aphasia Dysarthria 10: [0] = Normal Extinction and Inattention 11: [0] = No abnormality NIHSS Total: 3 # Data Time Head CT personally read by me ( Time): 06/16/2022, 16:[address]: no bleed # Assessment Impression: right lower ext weakness, gait disturbance. # Plan Thrombolytic/Intervention: NOT IV Thrombolysis or IA Intervention candidate Thrombolytic Exclusion (< 3 hour window): actively on Coumadin/warfarin with INR > 1.7 Intraarterial Exclusion: cta pending Target Blood Pressure: SBP < 160 Labs: CBC comprehensive metabolic panel lipid panel troponin TSH ua Other: consult on-site neurology service for full work-up and evaluation recommendations If patient has any neurological deterioration please call me back immediately I have discussed my recommendations with the referring provider Additional Recommendations: continue eliquis mri brain wo contrast mri cervical spine wo contrast # Logistics Telemedicine: Interactive 2 way audio and visual telecommunication technology was utilized during this visit # Demographics First Name: Adiel Last Name: Deon zavala Facility: [facility]
--- NOTE | 2022-06-16 16:40 | Emergency Department Report ---
- General Chief complaint: Weakness Stated complaint: STROKE Time Seen by Provider: 06/16/22 16:32 Source: patient, EMS Mode of arrival: Stretcher Limitations: No Limitations - History of Present Illness Initial comments: 67-year-old male with a past medical history of DVT taking Eliquis, complaining of waking up this afternoon and feeling weak on the right side patient states th at he had difficulty walking and leaned over to the right side. Denies having any recent trauma. Reportedly was in the hospital last night for chest pain MD Complaint: focal weakness (Right upper and lower extremity), difficulty walking -: Sudden Location: RUE, RLE Severity: mild Severity scale (0 -10): 3 Quality: numbness Consistency: constant Improves with: none Worsens with: none Associated Symptoms: denies other symptoms - Related Data Home Medications Medication Instructions Recorded Confirmed Last Taken oxyCODONE /ACETAMINOPHEN [Percocet 1 tab PO Q6HR PRN 01/17/22 01/17/22 Unknown 5/325 mg] Previous Rx's Medication Instructions Recorded Last Taken Type Acetaminophen [Acetaminophen TAB] 650 mg PO Q4H PRN #15 tablet 08/05/18 Unknown Rx Colchicine [Colcrys] 0.6 mg PO DAILY #30 tab 01/20/22 Unknown Rx Cyclobenzaprine HCl [Flexeril 5 MG 5 mg PO TID PRN #9 tab 01/20/22 Unknown Rx TAB] Fluticasone [Flonase] 1 spray NS QDAY #1 bottle 01/20/22 Unknown Rx Albuterol Mdi (or & Nicu Only) 2 puff IH QID PRN #1 inhalation 04/22/22 Unknown Rx [ProAir HFA Inhaler] Apixaban [Eliquis] 5 mg PO Q12HR #60 tablet 04/22/22 Unknown Rx Aspirin [Aspirin BABY CHEW TAB] 81 mg PO QDAY #30 tab.chew 04/22/22 Unknown Rx Furosemide [Lasix TAB] 40 mg PO BID #60 tablet 04/22/22 Unknown Rx Spironolactone [Aldactone] 50 mg PO QDAY #30 tablet 04/22/22 Unknown Rx allopurinoL [Zyloprim] 100 mg PO QDAY #30 tab 04/22/22 Unknown Rx carvediloL [Coreg] 12.5 mg PO BID #60 tablet 04/22/22 Unknown Rx glipiZIDE [Glucotrol] 10 mg PO BID #60 tab 04/22/22 Unknown Rx lisinopriL [Zestril TAB] 40 mg PO QDAY #30 tablet 04/22/22 Unknown Rx Furosemide [Lasix TAB] 80 mg PO BID 3 Days #6 tab NS 06/16/22 Unknown Rx Allergies Allergy/AdvReac Type Severity Reaction Status Date / Time Penicillins AdvReac Unknown Verified 06/16/22 16:37 ED Review of Systems ROS: Stated complaint: STROKE Other details as noted in HPI Constitutional: see HPI Eyes: as per HPI ENT: as per HPI Respiratory: no symptoms reported Cardiovascular: as per HPI Endocrine: no symptoms reported, see HPI Genitourinary: as per HPI Musculoskeletal: other (Weakness) Skin: as per HPI Neurological: weakness, numbness, abnormal gait Psychiatric: as per HPI ED Past Medical Hx - Past Medical History Hx Hypertension: Yes Hx Congestive Heart Failure: Yes Hx Diabetes: Yes Hx Renal Disease: Yes Hx Asthma: No Hx COPD: No Hx HIV: No - Surgical History Hx Internal Defibrillator: Yes Additional Surgical History: HERNIA REPAIR - Social History Smoking Status: Never Smoker - Medications Home Medications: Home Medications Medication Instructions Recorded Confirmed Last Taken Type Acetaminophen [Acetaminophen TAB] 650 mg PO Q4H PRN #15 tablet 08/05/18 01/18/22 Unknown Rx oxyCODONE /ACETAMINOPHEN [Percocet 1 tab PO Q6HR PRN 01/17/22 01/17/22 Unknown History 5/325 mg] Colchicine [Colcrys] 0.6 mg PO DAILY #30 tab 01/20/22 Unknown Rx Cyclobenzaprine HCl [Flexeril 5 MG 5 mg PO TID PRN #9 tab 01/20/22 Unknown Rx TAB] Fluticasone [Flonase] 1 spray NS QDAY #1 bottle 01/20/22 Unknown Rx Albuterol Mdi (or & Nicu Only) 2 puff IH QID PRN #1 inhalation 04/22/22 01/18/22 Unknown Rx [ProAir HFA Inhaler] Apixaban [Eliquis] 5 mg PO Q12HR #60 tablet 04/22/22 Unknown Rx Aspirin [Aspirin BABY CHEW TAB] 81 mg PO QDAY #30 tab.chew 04/22/22 Unknown Rx Furosemide [Lasix TAB] 40 mg PO BID #60 tablet 04/22/22 Unknown Rx Spironolactone [Aldactone] 50 mg PO QDAY #30 tablet 04/22/22 Unknown Rx allopurinoL [Zyloprim] 100 mg PO QDAY #30 tab 04/22/22 Unknown Rx carvediloL [Coreg] 12.5 mg PO BID #60 tablet 04/22/22 Unknown Rx glipiZIDE [Glucotrol] 10 mg PO BID #60 tab 04/22/22 Unknown Rx lisinopriL [Zestril TAB] 40 mg PO QDAY #30 tablet 04/22/22 Unknown Rx Furosemide [Lasix TAB] 80 mg PO BID 3 Days #6 tab NS 06/16/22 Unknown Rx ED Physical Exam - General Limitations: No Limitations General appearance: alert, in no apparent distress - Head Head exam: Present: atraumatic, normocephalic - Eye Eye exam: Present: normal appearance, PERRL, EOMI Pupils: Present: normal accommodation - ENT ENT exam: Present: normal exam, normal orophraynx, mucous membranes moist - Neck Neck exam: Present: normal inspection - Respiratory Respiratory exam: Present: normal lung sounds bilaterally - Cardiovascular Cardiovascular Exam: Present: regular rate, normal rhythm, normal heart sounds - GI/Abdominal GI/Abdominal exam: Present: soft. Absent: distended, tenderness - Extremities Exam Extremities exam: Present: normal inspection - Back Exam Back exam: Present: normal inspection, full ROM - Neurological Exam Neurological exam: Present: alert, oriented X3, CN II-XII intact, motor sensory deficit (Left upper and lower extremity 5/5 right upper lower extremity 4/5 strength) ED Course Vital Signs 06/16/22 16:35 Temperature 97.9 F Pulse Rate 120 H Respiratory 17 Rate Blood Pressure 145/107 [Left] O2 Sat by Pulse 98 Oximetry Critical care attestation.: If time is entered above; I have spent that time in minutes in the direct care of this critically ill patient, excluding procedure time. ED Disposition Condition: Stable
--- NOTE | 2022-06-16 17:16 | Cat Scan Report ---
CT head/brain wo con INDICATION: stroke. TECHNIQUE: Routine CT head. All CT scans at this location are performed using CT dose reduction for A CANDI by means of automated exposure control. COMPARISON: CT head 01/17/2022. FINDINGS: Intracranial: Confluent periventricular and centrum semiovale white matter hypoattenuation most consi stent with sequela from aggressive disease. Remote basal ganglia lacunar infarctions. No loss of mathews -white matter differentiation to suggest acute territorial infarction. Vertebrobasilar dolichoectasia Mathews-white matter differentiation is maintained. No intracranial hemorrhage. No extra axial collecti on. No hydrocephalus. No herniation. Sinuses: Paranasal sinuses and mastoid air cells are essentially clear. Orbits: Globes are intact. Calvarium: No acute fracture. IMPRESSION: 1. No acute intracranial abnormality. Signer Name: Ralf Singh MD Signed: 06/16/2022 5:12 PM Workstation Name: [id number]
--- NOTE | 2022-06-16 17:24 | Cat Scan Report ---
CT angio head, CT angio neck HISTORY:stroke 100ml of [id number] COMPARISON: None. TECHNIQUE: CTA of the neck and head is performed after IV contrast. 3-D/MIP reformats were postproces sed. Percentage stenosis is determined by direct quantitative measurements of diseased internal duvall tid artery diameter compared with normal distal internal carotid artery reference segments or by crit eria similar to NASCET where applicable. All CT scans at this location are performed using CT dose re duction for ALARA by means of automated exposure control. FINDINGS: CTA NECK: Aortic arch: No significant abnormality. Cervical vertebral arteries: No occlusion or hemodynamically significant stenosis. Common Carotid arteries: Mild atherosclerosis of the carotid bulbs. No occlusion or hemodynamically s ignificant stenosis. Internal carotid arteries: Mild atherosclerosis of the origins. No occlusion or hemodynamically signi ficant stenosis. CTA HEAD: Intracranial vertebral arteries: Dominant left vertebral artery. The right vertebral terminates as th e right PICA. No occlusion or significant stenosis. Basilar artery: No occlusion or significant stenosis. Posterior cerebral arteries: There is high-grade stenosis and left P3 segment. No occlusion. No steno sis seen proximally. Intracranial internal carotid arteries: No occlusion or significant stenosis. Anterior cerebral arteries: No occlusion or significant stenosis. Middle cerebral arteries: No occlusion or significant stenosis. No aneurysm. Additional findings: None. IMPRESSION: 1. CTA NECK: No occlusion or significant stenosis of the carotid or vertebral arteries. 2. CTA HEAD: No large proximal vessel occlusion. There is high-grade stenosis seen in the P3 segment of the posterior cerebral artery.. Signer Name: Ralf Singh MD Signed: 06/16/2022 5:19 PM Workstation Name: [id number]
[2022-06-16 17:39] LABS: Basophils % (Auto) 0.9 % (0.0-1.8); Eosinophils # (Auto) 0.2 K/mm3 (0.0-0.4); Eosinophils % (Auto) 3.1 % (0.0-4.3); Hemoglobin 13.8 gm/dl (11.8-15.2); Lymphocytes # (Auto) 1.1 K/mm3 (1.2-5.4); Lymphocytes % (Auto) 21.1 % (13.4-35.0); Mean Corpuscular HGB Conc 32 % (32-34); Mean Corpuscular Volume 94 fl (84-94); Monocytes # (Auto) 0.7 K/mm3 (0.0-0.8); Monocytes % (Auto) 12.6 % (0.0-7.3); Platelet Count 177 K/mm3 (140-440); Red Cell Distribution Width 14.7 % (13.2-15.2)
[2022-06-16 17:44] LABS: Albumin 3.8 g/dL (3.9-5); Calcium 9.3 mg/dL (8.4-10.2)
[2022-06-16 17:58] LABS: INR 1.28 (0.87-1.13)
[2022-06-16 17:59] LABS: Partial Thromboplastin Time 33.5 Sec. (24.2-36.6); Thrombin Time 16.6 Sec. (15.1-19.6)
[2022-06-16] MEDS ORDERED: ALBUTEROL 8.5 GM MDI INHALATION IH PRN (21:07)
[2022-06-16] MEDS ORDERED: NON-FORMULARY EACH (Cyclobenzaprine Hcl [Flexeril 5 Mg Tab] 5 MG Tablet) PO PRN (21:07)
[2022-06-16] MEDS ORDERED: oxyCODONE /ACETAMINOPHEN 5-325MG TAB PO PRN (21:07)
[2022-06-16] MEDS ORDERED: ACETAMINOPHEN 325 MG TAB PO PRN ×2 (21:07→21:13)
[2022-06-16] MEDS ORDERED: MORPHINE 2 MG/1 ML INJ IV PRN (21:13)
[2022-06-16] MEDS ORDERED: ONDANSETRON 4 MG/2 ML INJ IV PRN (21:13)
[2022-06-16] MEDS ORDERED: METOCLOPRAMIDE 10 MG/2 ML INJ IV PRN (21:13)
--- NOTE | 2022-06-16 21:24 | History and Physical Report ---
History of Present Illness Date of examination: 06/16/22 Date of admission: 06/16/2022 Chief complaint: Right-sided weakness since a.m. History of present illness: 67-year-old male with multiple medical problems including type 2 diabetes, CHF, hypertension and gout comes in for right upper and right lower extremity weakness since a.m. which lasted for about 2 to 3 hours. Resolved completely. Patient was not able to walk in the morning. Patient came in for evaluation of the right lower extremity weakness which has resolved. No dysarthria. No nasal regurgitation of fluids. No diplopia. No right-sided numbness. - Past Medical History --Hypertension: Yes --Congestive Heart Failure: Yes --Diabetes: Yes --Renal Disease: Yes - Surgical History --Internal Defibrillator: Yes --Additional Surgical History: HERNIA REPAIR - Social History --Smoking Status: Never Smoker - Medications --Home Medications: Home Medications Medication Instructions Recorded Confirmed Last Taken Type Acetaminophen [Acetaminophen TAB] 650 mg PO Q4H PRN #15 tablet 08/05/18 01/18/22 Unknown Rx oxyCODONE /ACETAMINOPHEN [Percocet 1 tab PO Q6HR PRN 01/17/22 01/17/22 Unknown History 5/325 mg] Colchicine [Colcrys] 0.6 mg PO DAILY #30 tab 01/20/22 Unknown Rx Cyclobenzaprine HCl [Flexeril 5 MG 5 mg PO TID PRN #9 tab 01/20/22 Unknown Rx TAB] Fluticasone [Flonase] 1 spray NS QDAY #1 bottle 01/20/22 Unknown Rx Albuterol Mdi (or & Nicu Only) 2 puff IH QID PRN #1 inhalation 04/22/22 01/18/22 Unknown Rx [ProAir HFA Inhaler] Apixaban [Eliquis] 5 mg PO Q12HR #60 tablet 04/22/22 Unknown Rx Aspirin [Aspirin BABY CHEW TAB] 81 mg PO QDAY #30 tab.chew 04/22/22 Unknown Rx Furosemide [Lasix TAB] 40 mg PO BID #60 tablet 04/22/22 Unknown Rx Spironolactone [Aldactone] 50 mg PO QDAY #30 tablet 04/22/22 Unknown Rx allopurinoL [Zyloprim] 100 mg PO QDAY #30 tab 04/22/22 Unknown Rx carvediloL [Coreg] 12.5 mg PO BID #60 tablet 04/22/22 Unknown Rx glipiZIDE [Glucotrol] 10 mg PO BID #60 tab 04/22/22 Unknown Rx lisinopriL [Zestril TAB] 40 mg PO QDAY #30 tablet 04/22/22 Unknown Rx Furosemide [Lasix TAB] 80 mg PO BID 3 Days #6 tab NS 06/16/22 Unknown Rx Review of Systems ROS: Stated complaint: STROKE Other details as noted in HPI Constitutional: see HPI Eyes: as per HPI ENT: as per HPI Respiratory: no symptoms reported Cardiovascular: as per HPI Endocrine: no symptoms reported, see HPI Genitourinary: as per HPI Musculoskeletal: other (Weakness) Skin: as per HPI Neurological: weakness, numbness, abnormal gait Psychiatric: as per HPI Medications and Allergies Allergies Allergy/AdvReac Type Severity Reaction Status Date / Time Penicillins AdvReac Unknown Verified 06/16/22 16:46 Home Medications Medication Instructions Recorded Confirmed Last Taken Type Acetaminophen [Acetaminophen TAB] 650 mg PO Q4H PRN #15 tablet 08/05/18 01/18/22 Unknown Rx oxyCODONE /ACETAMINOPHEN [Percocet 1 tab PO Q6HR PRN 01/17/22 01/17/22 Unknown History 5/325 mg] Colchicine [Colcrys] 0.6 mg PO DAILY #30 tab 01/20/22 Unknown Rx Cyclobenzaprine HCl [Flexeril 5 MG 5 mg PO TID PRN #9 tab 01/20/22 Unknown Rx TAB] Fluticasone [Flonase] 1 spray NS QDAY #1 bottle 01/20/22 Unknown Rx Albuterol Mdi (or & Nicu Only) 2 puff IH QID PRN #1 inhalation 04/22/22 01/18/22 Unknown Rx [ProAir HFA Inhaler] Apixaban [Eliquis] 5 mg PO Q12HR #60 tablet 04/22/22 Unknown Rx Aspirin [Aspirin BABY CHEW TAB] 81 mg PO QDAY #30 tab.chew 04/22/22 Unknown Rx Furosemide [Lasix TAB] 40 mg PO BID #60 tablet 04/22/22 Unknown Rx Spironolactone [Aldactone] 50 mg PO QDAY #30 tablet 04/22/22 Unknown Rx allopurinoL [Zyloprim] 100 mg PO QDAY #30 tab 04/22/22 Unknown Rx carvediloL [Coreg] 12.5 mg PO BID #60 tablet 04/22/22 Unknown Rx glipiZIDE [Glucotrol] 10 mg PO BID #60 tab 04/22/22 Unknown Rx lisinopriL [Zestril TAB] 40 mg PO QDAY #30 tablet 04/22/22 Unknown Rx Furosemide [Lasix TAB] 80 mg PO BID 3 Days #6 tab NS 06/16/22 Unknown Rx Exam - Constitutional Vitals: Temp Pulse Resp BP Pulse Ox 97.9 F 120 H 17 145/107 97 06/16/22 16:35 06/16/22 16:35 06/16/22 16:35 06/16/22 16:35 06/16/22 17:37 General appearance: Present: no acute distress, well-nourished - EENT Eyes: Present: PERRL ENT: hearing intact, clear oral mucosa - Neck Neck: Present: supple, normal ROM - Respiratory Respiratory effort: normal Respiratory: bilateral: CTA - Cardiovascular Heart rate: 78 Rhythm: regular Heart Sounds: Present: S1 & S2. Absent: rub, click - Extremities Extremities: pulses symmetrical, No edema Peripheral Pulses: within normal limits - Abdominal General gastrointestinal: Present: soft, non-tender, non-distended, normal bowel sounds Male genitourinary: Present: normal - Integumentary Integumentary: Present: clear, warm, dry - Musculoskeletal Musculoskeletal: gait normal, strength equal bilaterally - Psychiatric Psychiatric: appropriate mood/affect, intact judgment & insight - Neurologic Neurologic: CNII-XII intact, moves all extremities HEART Score - HEART Score History: Moderately suspicious Age: > 65 Risk factors: > 3 risk factors or hx of atherosclerotic disease Troponin: Troponin T 0.020 ng/mL (0.00-0.029) 06/16/22 16:59 Troponin: < normal limit - Critical Actions Critical Actions: 4-6 pts:12-16.6% risk of adverse cardiac event. Should be admitted Results - Labs CBC & Chem 7: 06/17/22 05:29 06/17/22 05:29 Labs: Laboratory Last Values WBC 5.2 K/mm3 (4.5-11.0) 06/16/22 16:59 RBC 4.60 M/mm3 (3.65-5.03) 06/16/22 16:59 Hgb 13.8 gm/dl (11.8-15.2) 06/16/22 16:59 Hct 43.0 % (35.5-45.6) 06/16/22 16:59 MCV 94 fl (84-94) 06/16/22 16:59 MCH 30 pg (28-32) 06/16/22 16:59 MCHC 32 % (32-34) 06/16/22 16:59 RDW 14.7 % (13.2-15.2) 06/16/22 16:59 Plt Count 177 K/mm3 (140-440) 06/16/22 16:59 Lymph % (Auto) 21.1 % (13.4-35.0) 06/16/22 16:59 [place] % (Auto) 12.6 % (0.0-7.3) H 06/16/22 16:59 Eos % (Auto) 3.1 % (0.0-4.3) 06/16/22 16:59 Baso % (Auto) 0.9 % (0.0-1.8) 06/16/22 16:59 Lymph # (Auto) 1.1 K/mm3 (1.2-5.4) L 06/16/22 16:59 [place] # (Auto) 0.7 K/mm3 (0.0-0.8) 06/16/22 16:59 Eos # (Auto) 0.2 K/mm3 (0.0-0.4) 06/16/22 16:59 Baso # (Auto) 0.0 K/mm3 (0.0-0.1) 06/16/22 16:59 Seg Neutrophils % 62.3 % (40.0-70.0) 06/16/22 16:59 Seg Neutrophils # 3.2 K/mm3 (1.8-7.7) 06/16/22 16:59 PT 17.5 Sec. (12.2-14.9) H 06/16/22 16:59 INR 1.28 (0.87-1.13) H 06/16/22 16:59 APTT 33.5 Sec. (24.2-36.6) 06/16/22 16:59 Thrombin Time 16.6 Sec. (15.1-19.6) 06/16/22 16:59 Sodium 137 mmol/L (137-145) 06/16/22 16:59 Potassium 4.7 mmol/L (3.6-5.0) 06/16/22 16:59 Chloride 101.5 mmol/L (98-107) 06/16/22 16:59 Carbon Dioxide 19 mmol/L (22-30) L 06/16/22 16:59 Anion Gap 21 mmol/L 06/16/22 16:59 BUN 48 mg/dL (9-20) H 06/16/22 16:59 Creatinine 2.4 mg/dL (0.8-1.3) H 06/16/22 16:59 Estimated GFR 33 ml/min 06/16/22 16:59 BUN/Creatinine Ratio 20 % 06/16/22 16:59 Glucose 118 mg/dL (75-100) H 06/16/22 16:59 Calcium 9.3 mg/dL (8.4-10.2) 06/16/22 16:59 Total Bilirubin 1.00 mg/dL (0.1-1.2) 06/16/22 16:59 AST 12 units/L (5-40) 06/16/22 16:59 ALT 11 units/L (7-56) 06/16/22 16:59 Alkaline Phosphatase 92 units/L (35-129) 06/16/22 16:59 Total Creatine Kinase 75 units/L (55-170) 06/16/22 16:59 CK-MB (CK-2) 3.0 ng/mL (0.0-4.0) 06/16/22 16:59 CK-MB (CK-2) Rel Index 4.0 (0-4) 06/16/22 16:59 Troponin T 0.020 ng/mL (0.00-0.029) 06/16/22 16:59 Total Protein 7.5 g/dL (6.3-8.2) 06/16/22 16:59 Albumin 3.8 g/dL (3.9-5) L 06/16/22 16:59 Albumin/Globulin Ratio 1.0 % 06/16/22 16:59 Short CBC 06/16/22 06/17/22 Range/Units 16:59 05:29 WBC 5.2 5.5 (4.5-11.0) K/mm3 Hgb 13.8 14.4 (11.8-15.2) gm/dl Hct 43.0 46.0 H (35.5-45.6) % Plt Count 177 188 (140-440) K/mm3 BMP 06/16/22 06/17/22 16:59 05:29 Sodium 137 141 Potassium 4.7 4.4 Chloride 101.5 104.2 Carbon Dioxide 19 L 24 BUN 48 H 46 H Creatinine 2.4 H 2.7 H Glucose 118 H 98 Calcium 9.3 9.7 Cardiac Enzymes 06/16/22 Range/Units 16:59 Total Creatine Kinase 75 (55-170) units/L CK-MB (CK-2) 3.0 (0.0-4.0) ng/mL Troponin T 0.020 (0.00-0.029) ng/mL Liver Function 06/16/22 06/17/22 Range/Units 16:59 05:29 Total Bilirubin 1.00 1.20 (0.1-1.2) mg/dL AST 12 12 (5-40) units/L ALT 11 10 (7-56) units/L Alkaline Phosphatase 92 88 (35-129) units/L Albumin 3.8 L 4.0 (3.9-5) g/dL - Imaging and Cardiology EKG: report reviewed (No acute ST-T wave changes) Imaging and Cardiology: Head CT No acute findings Next head and neck CTA No occlusion Assessment and Plan Advance Directives: Yes (Full code) VTE prophylaxis?: Chemical Plan of care discussed with patient/family: Yes - Patient Problems (1) TIA (transient ischemic attack) Current Visit: Yes Status: Acute Plan to address problem: TIA work-up including MRI brain and echocardiogram Telemetry neurology recommendations Neuro consult requested (2) Acute congestive heart failure Current Visit: No Status: Acute Qualifiers: Heart failure type: combined systolic and diastolic Qualified Code(s): I50.41 - Acute combined systolic (congestive) and diastolic (congestive) heart failure Plan to address problem: Continue Lasix (3) HTN (hypertension) Current Visit: Yes Status: Chronic Qualifiers: Hypertension type: primary hypertension Qualified Code(s): I10 - Essential (primary) hypertension Plan to address problem: Continue antihypertensives and adjust medications as necessary (4) T2DM (type 2 diabetes mellitus) Current Visit: Yes Status: Chronic Qualifiers: Diabetes mellitus residential insulin use: unspecified residential insulin use status Plan to address problem: Continue oral hypoglycemics and adjust medications Insulin coverage Hemoglobin A1c (5) DVT prophylaxis Current Visit: Yes Status: Acute Plan to address problem: On heparin and GI prophylaxis (6) Advance care planning Current Visit: Yes Status: Acute Plan to address problem: Disease education conducted, care plan discussed, diagnosis discussed, prognosis discussed. Patient acknowledged understanding with care plan. +30 minutes. Full code.
[2022-06-16] MEDS ORDERED: ALBUTEROL 2.5 MG/3 ML NEBU IH PRN (21:25)
[2022-06-16] MEDS ORDERED: CYCLOBENZAPRINE 10 MG TAB PO PRN (21:29)
[2022-06-16] MEDS: APIXABAN 5 MG TAB PO SCH (21:56)
[2022-06-16] MEDS ORDERED: NON-FORMULARY EACH (Apixaban 5 MG Tablet) PO SCH (22:00)
[2022-06-16 22:16] LABS: Amphetamine Screen,Urine Negative; Benzodiazepines Screen,Urine Negative; Cannabinoid Screen,Urine Negative; Cocaine Screen,Urine Negative; Methadone Screen,Urine Negative; Opiate Screen,Urine Negative
[2022-06-16] MEDS: carvediloL 12.5 MG TAB PO SCH (23:22)
[2022-06-16] MEDS: glipiZIDE 10 MG TAB PO SCH (23:22)
[2022-06-16] MEDS: FUROSEMIDE 40 MG TAB PO SCH (23:23)
[2022-06-17] MEDS: INSULIN LISPRO 100 UNIT/ML SUB-Q SCH ×5 (01:59→21:19)
[2022-06-17 05:48] LABS: Basophils % (Auto) 0.9 % (0.0-1.8); Eosinophils # (Auto) 0.1 K/mm3 (0.0-0.4); Eosinophils % (Auto) 2.4 % (0.0-4.3); Hemoglobin 14.4 gm/dl (11.8-15.2); Lymphocytes # (Auto) 1.8 K/mm3 (1.2-5.4); Lymphocytes % (Auto) 33.3 % (13.4-35.0); Mean Corpuscular HGB Conc 31 % (32-34); Mean Corpuscular Volume 93 fl (84-94); Monocytes # (Auto) 0.8 K/mm3 (0.0-0.8); Monocytes % (Auto) 13.6 % (0.0-7.3); Platelet Count 188 K/mm3 (140-440); Red Blood Count 4.94 M/mm3 (3.65-5.03); Red Cell Distribution Width 14.9 % (13.2-15.2)
[2022-06-17 06:06] LABS: Calcium 9.7 mg/dL (8.4-10.2)
[2022-06-17] MEDS ORDERED: SODIUM CHLORIDE 0.9% 1000 ML 1,000 ML IV SCH (07:30)
--- NOTE | 2022-06-17 08:57 | Electrocardiograph Report ---
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
[2022-06-17 09:54] LABS: Chol/HDL Ratio 4.15 %
[2022-06-17] MEDS ORDERED: ASPIRIN 325 MG TAB PO SCH (10:00)
[2022-06-17] MEDS ORDERED: ASPIRIN 81 MG TAB CHEW PO SCH (10:00)
[2022-06-17] MEDS ORDERED: NON-FORMULARY EACH (Colchicine [Colcrys] 0.6 MG) PO SCH (10:00)
[2022-06-17] MEDS: carvediloL 12.5 MG TAB PO SCH ×2 (10:16→21:18)
[2022-06-17] MEDS: APIXABAN 5 MG TAB PO SCH ×2 (10:16→21:18)
[2022-06-17] MEDS: LISINOPRIL 40 MG TAB PO SCH (10:16)
[2022-06-17] MEDS: FUROSEMIDE 40 MG TAB PO SCH ×2 (10:16→21:18)
[2022-06-17] MEDS: allopurinoL 100 MG TAB PO SCH (10:16)
[2022-06-17] MEDS: glipiZIDE 10 MG TAB PO SCH ×2 (10:16→19:11)
[2022-06-17] MEDS: SPIRONOLACTONE 50 MG TAB PO SCH (10:16)
[2022-06-17] MEDS: COLCHICINE 0.6 MG TAB PO SCH (10:22)
[2022-06-17] MEDS: FLUTICASONE PROPIONATE NASAL SPRAY 16 GM NS SCH (10:23)
--- NOTE | 2022-06-17 11:14 | Progress Note ---
Assessment and Plan Assessment and plan: #Possible TIA CT head noncontrast unremarkable. 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 Patient unable to undergo MRI brain with and without contrast due to patient having a pacemaker that is likely noncompatible with MRI technology. Neurology consulted; pending recs. Based on neurology recommendations, pat ient might be a possible candidate for PFO closure. Previous TTE revealing EF 15-20% with PFO present. Cardiology consulted; appreciate recs. Replacing aspirin 81 mg daily with Plavix 75 mg daily while continuing Eliquis 5 mg twice daily. Pending bilateral lower extremity venous Dopplers to evaluate for possible DVT. If DVT is found, patient would benefit from PFO closure. If DVT is not f ound, patient will continue with medical management. Hemoglobin A1c 6.5. Lipid panel: Triglycerides 76, cholesterol 158, LDL 102, HDL 38. Physical therapy and Occupational Therapy consulted; pending recs Continue to monitor. #Chronic systolic heart failure with defibrillator placement #Atrial fibrillation on Eliquis #Hypertension Prior TTE revealing EF 15-20% Continue goal-directed therapy and continue fluid restriction to 2 L/day. Continue Eliquis 5 mg twice daily. Continue home Coreg 12.5 mg twice daily, lisinopril 40 mg daily, Lasix 40 mg twice daily, Aldactone 50 mg daily - SBP goal <160 and DBP goal <90 while inpatient - continue to monitor #Non-insulin dependent type II diabetes mellitus - hemoglobin A1c: 6.5 - home regimen: Glipizide 10 mg twice daily - current regimen: Glipizide 10 mg twice daily - blood glucose goal 140-180 while inpatient - continue to monitor #Gout Continue home allopurinol 100 mg daily and colchicine 0.6 mg daily #Advanced care planning -Disease education conducted, care plan discussed, diagnoses discussed, prognosis discussed, and patient acknowledges understanding with care plan -Time: +30 min #Discharge planning - Patient is pending results of bilateral venous Dopplers, neurology recs, and PT recs - Case management has been made aware. - Discharge is tentatively 24-48 hours. Disposition Plan: Continue medical management Total Time Spent with Patient (Minutes): 45 minutes History Interval history: No acute events overnight. Hospitalist Physical - Constitutional Vitals: Temp Pulse Resp BP Pulse Ox 98.1 F 88 18 89/54 97 06/17/22 04:20 06/17/22 10:00 06/17/22 04:20 06/17/22 04:20 06/17/22 10:00 General appearance: Present: no acute distress, well-nourished - EENT Eyes: Present: PERRL, EOM intact ENT: hearing intact, clear oral mucosa, dentition normal - Neck Neck: Present: supple, normal ROM - Respiratory Respiratory effort: normal Respiratory: bilateral: CTA - Cardiovascular Rhythm: regular Heart Sounds: Present: S1 & S2 - Extremities Extremities: no ischemia, pulses intact, pulses symmetrical, No edema, normal temperature, normal color Peripheral Pulses: within normal limits - Abdominal General gastrointestinal: soft, non-tender, non-distended, normal bowel sounds - Integumentary Integumentary: Present: clear, warm, dry - Psychiatric Psychiatric: appropriate mood/affect, intact judgment & insight, cooperative - Neurologic Neurologic: CNII-XII intact, moves all extremities - Allied Health Allied health notes reviewed: nursing HEART Score - HEART Score Age: > 65 Risk factors: > 3 risk factors or hx of atherosclerotic disease Troponin: Troponin T 0.020 ng/mL (0.00-0.029) 06/16/22 16:59 Troponin: < normal limit - Critical Actions Critical Actions: 4-6 pts:12-16.6% risk of adverse cardiac event. Should be admitted Results - Labs CBC & Chem 7: 06/17/22 05:29 06/17/22 05:29 Labs: Laboratory Last Values WBC 5.5 K/mm3 (4.5-11.0) 06/17/22 05:29 RBC 4.94 M/mm3 (3.65-5.03) 06/17/22 05:29 Hgb 14.4 gm/dl (11.8-15.2) 06/17/22 05:29 Hct 46.0 % (35.5-45.6) H 06/17/22 05:29 MCV 93 fl (84-94) 06/17/22 05:29 MCH 29 pg (28-32) 06/17/22 05:29 MCHC 31 % (32-34) L 06/17/22 05:29 RDW 14.9 % (13.2-15.2) 06/17/22 05:29 Plt Count 188 K/mm3 (140-440) 06/17/22 05:29 Lymph % (Auto) 33.3 % (13.4-35.0) 06/17/22 05:29 [place] % (Auto) 13.6 % (0.0-7.3) H 06/17/22 05:29 Eos % (Auto) 2.4 % (0.0-4.3) 06/17/22 05:29 Baso % (Auto) 0.9 % (0.0-1.8) 06/17/22 05:29 Lymph # (Auto) 1.8 K/mm3 (1.2-5.4) 06/17/22 05:29 [place] # (Auto) 0.8 K/mm3 (0.0-0.8) 06/17/22 05:29 Eos # (Auto) 0.1 K/mm3 (0.0-0.4) 06/17/22 05:29 Baso # (Auto) 0.0 K/mm3 (0.0-0.1) 06/17/22 05:29 Seg Neutrophils % 49.8 % (40.0-70.0) 06/17/22 05:29 Seg Neutrophils # 2.8 K/mm3 (1.8-7.7) 06/17/22 05:29 PT 17.5 Sec. (12.2-14.9) H 06/16/22 16:59 INR 1.28 (0.87-1.13) H 06/16/22 16:59 APTT 33.5 Sec. (24.2-36.6) 06/16/22 16:59 Thrombin Time 16.6 Sec. (15.1-19.6) 06/16/22 16:59 Sodium 141 mmol/L (137-145) 06/17/22 05:29 Potassium 4.4 mmol/L (3.6-5.0) 06/17/22 05:29 Chloride 104.2 mmol/L (98-107) 06/17/22 05:29 Carbon Dioxide 24 mmol/L (22-30) 06/17/22 05:29 Anion Gap 17 mmol/L 06/17/22 05:29 BUN 46 mg/dL (9-20) H 06/17/22 05:29 Creatinine 2.7 mg/dL (0.8-1.3) H 06/17/22 05:29 Estimated GFR 29 ml/min 06/17/22 05:29 BUN/Creatinine Ratio 17 % 06/17/22 05:29 Glucose 98 mg/dL (75-100) 06/17/22 05:29 POC Glucose 93 mg/dL (70-105) 06/17/22 07:14 Hemoglobin A1c 6.5 % (4-6) H 06/17/22 08:53 Calcium 9.7 mg/dL (8.4-10.2) 06/17/22 05:29 Total Bilirubin 1.20 mg/dL (0.1-1.2) 06/17/22 05:29 AST 12 units/L (5-40) 06/17/22 05:29 ALT 10 units/L (7-56) 06/17/22 05:29 Alkaline Phosphatase 88 units/L (35-129) 06/17/22 05:29 Total Creatine Kinase 75 units/L (55-170) 06/16/22 16:59 CK-MB (CK-2) 3.0 ng/mL (0.0-4.0) 06/16/22 16:59 CK-MB (CK-2) Rel Index 4.0 (0-4) 06/16/22 16:59 Troponin T 0.020 ng/mL (0.00-0.029) 06/16/22 16:59 Total Protein 7.5 g/dL (6.3-8.2) 06/17/22 05:29 Albumin 4.0 g/dL (3.9-5) 06/17/22 05:29 Albumin/Globulin Ratio 1.1 % 06/17/22 05:29 Triglycerides 76 mg/dL (2-149) 06/17/22 08:53 Cholesterol 158 mg/dL (50-199) 06/17/22 08:53 LDL Cholesterol Direct 102 mg/dL (50-130) 06/17/22 08:53 HDL Cholesterol 38 mg/dL (40-59) L 06/17/22 08:53 Cholesterol/HDL Ratio 4.15 % 06/17/22 08:53 Urine Opiates Screen Negative 06/16/22 21:40 Urine Methadone Screen Negative 06/16/22 21:40 Ur Barbiturates Screen Negative 06/16/22 21:40 Ur Phencyclidine Scrn Negative 06/16/22 21:40 Ur Amphetamines Screen Negative 06/16/22 21:40 U Benzodiazepines Scrn Negative 06/16/22 21:40 Urine Cocaine Screen Negative 06/16/22 21:40 U Marijuana (THC) Screen Negative 06/16/22 21:40 Drugs of Abuse Note Disclamer 06/16/22 21:40 [place]/IV: Voiding Method Urinal Active Medications - Current Medications Current Medications: Generic Name Dose Route Start Last Admin Trade Name Freq PRN Reason Stop Dose Admin Acetaminophen 650 mg 06/16/22 21:13 Acetaminophen 325 Mg Tab PO Q4H PRN Pain MILD(1-3)/Fever >100.5/MIX Albuterol 2.5 mg 06/16/22 21:25 Albuterol 2.5 Mg/3 Ml Nebu IH Q4HRT PRN Shortness Of Breath Allopurinol 100 mg 06/17/22 10:00 06/17/22 10:16 Allopurinol 100 Mg Tab PO 100 mg QDAY COLTON Administration Apixaban 5 mg 06/16/22 22:00 06/17/22 10:16 Apixaban 5 Mg Tab PO 5 mg Q12HR COLTON Administration Atorvastatin Calcium 40 mg 06/16/22 22:00 06/16/22 23:23 Atorvastatin 40 Mg Tab PO Not Given QHS COLTON Carvedilol 12.5 mg 06/16/22 22:00 06/17/22 10:16 Carvedilol 12.5 Mg Tab PO 12.5 mg BID COLTON Administration Clopidogrel Bisulfate 75 mg 06/18/22 10:00 Clopidogrel 75 Mg Tab PO QDAY COLTON Colchicine 0.6 mg 06/17/22 10:00 06/17/22 10:22 Colchicine 0.6 Mg Tab PO Not Given QDAY COLTON Cyclobenzaprine HCl 5 mg 06/16/22 21:29 Cyclobenzaprine 10 Mg Tab PO TID PRN Muscle Spasm Fluticasone Propionate 50 mcg 06/17/22 10:00 06/17/22 10:23 Fluticasone Propionate Nasal [place] 16 Gm NS Not Given QDAY COLTON Furosemide 40 mg 06/16/22 22:00 06/17/22 10:16 Furosemide 40 Mg Tab PO 40 mg BID COLTON Administration Glipizide 10 mg 06/16/22 22:00 06/17/22 10:16 Glipizide 10 Mg Tab PO 10 mg BIDDIAB COLTON Administration Insulin Human Lispro 0 unit 06/16/22 22:00 06/17/22 10:14 Insulin Lispro 100 Unit/Ml SUB-Q Not Given ACHS [facility] Protocol Lisinopril 40 mg 06/17/22 10:00 06/17/22 10:16 Lisinopril 40 Mg Tab PO 40 mg QDAY COLTON Administration Metoclopramide HCl 10 mg 06/16/22 21:13 Metoclopramide 10 Mg/2 Ml Inj IV Q6H PRN Nausea And Vomiting Morphine Sulfate 2 mg 06/16/22 21:13 Morphine 2 Mg/1 Ml Inj IV Q4H PRN Pain, Moderate (4-6) Ondansetron HCl 4 mg 06/16/22 21:13 Ondansetron 4 Mg/2 Ml Inj IV Q8H PRN Nausea And Vomiting Oxycodone/Acetaminophen 1 tab 06/16/22 21:07 Oxycodone /Acetaminophen 5-325mg Tab PO Q6HR PRN Pain, Moderate (4-6) Sodium Chloride 10 ml 06/16/22 22:00 06/17/22 10:22 Sodium Chloride 0.9% 10 Ml Flush Syringe IV 10 ml BID COLTON Administration Sodium Chloride 10 ml 06/16/22 21:13 Sodium Chloride 0.9% 10 Ml Flush Syringe IV PRN PRN LINE FLUSH Spironolactone 50 mg 06/17/22 10:00 06/17/22 10:16 Spironolactone 50 Mg Tab PO 50 mg QDAY COLTON Administration
--- NOTE | 2022-06-17 11:30 | Consultation ---
History of Present Illness Consult date: 06/17/22 Requesting physician: AAORN MIRAMONTES History of present illness: This is a 67-year-old gentleman with prior medical history which includes hy pertension, diabetes, chronic kidney disease, severe LV systolic dysfunction with defibrillator in situ, persistent atrial fibrillation on anticoagulation with apixaban 5 mg twice daily and prior history of PE was admitted with symptoms suggestive of possible TIA. CT scan of his head was negative for any acute events. His symptoms resolved by the time he came to the ER with no recurrence of symptoms. He had an echo in January 2022 which showed severe LV systolic dysfunction with an EF of 10 to 15% with an atrial septal aneurysm and a PFO so we were consulted for the management. Patient is doing well today. He denies any complaints of chest pain. He has some shortness of breath which has been unchanged for the past few months. He denies any orthopnea PND leg swelling. No recent fever, cough. He says he is compliant with his medications and takes apixaban twice daily as prescribed. He says he did not miss dose of the medications. Past History Past Medical History: atrial fib, diabetes, heart failure, hypertension, pulmonary embolism, renal failure Past Surgical History: hernia repair, Other (Cardiac defibrillator) Social history: denies: smoking Family history: no significant family history Medications and Allergies Allergies Allergy/AdvReac Type Severity Reaction Status Date / Time Penicillins AdvReac Faints Verified 06/17/22 11:26 Home Medications Medication Instructions Recorded Confirmed Last Taken Type Acetaminophen [Acetaminophen TAB] 650 mg PO Q4H PRN #15 tablet 08/05/18 06/17/22 06/15/22 Rx Apixaban [Eliquis] 5 mg PO Q12HR #60 tablet 04/22/22 06/17/22 06/16/22 Rx Aspirin [Aspirin BABY CHEW TAB] 81 mg PO QDAY #30 tab.chew 04/22/22 06/17/22 06/16/22 Rx allopurinoL [Zyloprim] 100 mg PO QDAY #30 tab 04/22/22 06/17/22 06/16/22 Rx glipiZIDE [Glucotrol] 10 mg PO BID #60 tab 04/22/22 06/17/22 06/16/22 Rx lisinopriL [Zestril TAB] 40 mg PO QDAY #30 tablet 04/22/22 06/17/22 06/16/22 Rx Furosemide [Lasix TAB] 80 mg PO BID 3 Days #6 tab NS 06/16/22 06/17/22 06/15/22 Rx Bimatoprost [Lumigan] 1 drop OU QHS 06/17/22 06/17/22 06/15/22 History Multivitamin 1 each PO QDAY 06/17/22 06/17/22 06/16/22 History carvediloL [Coreg] 25 mg PO BID 06/17/22 06/17/22 06/16/22 History Active Meds: Active Medications Acetaminophen (Acetaminophen 325 Mg Tab) 650 mg PO Q4H PRN PRN Reason: Pain MILD(1-3)/Fever >100.5/MIX Albuterol (Albuterol 2.5 Mg/3 Ml Nebu) 2.5 mg IH Q4HRT PRN PRN Reason: Shortness Of Breath Allopurinol (Allopurinol 100 Mg Tab) 100 mg PO QDAY [facility] Last Admin: 06/17/22 10:16 Dose: 100 mg Apixaban (Apixaban 5 Mg Tab) 5 mg PO Q12HR [facility] Last Admin: 06/17/22 10:16 Dose: 5 mg Atorvastatin Calcium (Atorvastatin 40 Mg Tab) 40 mg PO QHS [facility] Last Admin: 06/16/22 23:23 Dose: Not Given Carvedilol (Carvedilol 12.5 Mg Tab) 12.5 mg PO BID [facility] Last Admin: 06/17/22 10:16 Dose: 12.5 mg Clopidogrel Bisulfate (Clopidogrel 75 Mg Tab) 75 mg PO QDAY [facility] Colchicine (Colchicine 0.6 Mg Tab) 0.6 mg PO QDAY [facility] Last Admin: 06/17/22 10:22 Dose: Not Given Cyclobenzaprine HCl (Cyclobenzaprine 10 Mg Tab) 5 mg PO TID PRN PRN Reason: Muscle Spasm Fluticasone Propionate (Fluticasone Propionate Nasal [place] 16 Gm) 50 mcg NS QDAY [facility] Last Admin: 06/17/22 10:23 Dose: Not Given Furosemide (Furosemide 40 Mg Tab) 40 mg PO BID [facility] Last Admin: 06/17/22 10:16 Dose: 40 mg Glipizide (Glipizide 10 Mg Tab) 10 mg PO BIDDIAB [facility] Last Admin: 06/17/22 10:16 Dose: 10 mg Insulin Human Lispro (Insulin Lispro 100 Unit/Ml) 0 unit SUB-Q ACHS [facility]; Protocol Last Admin: 06/17/22 10:14 Dose: Not Given Lisinopril (Lisinopril 40 Mg Tab) 40 mg PO QDAY [facility] Last Admin: 06/17/22 10:16 Dose: 40 mg Metoclopramide HCl (Metoclopramide 10 Mg/2 Ml Inj) 10 mg IV Q6H PRN PRN Reason: Nausea And Vomiting Morphine Sulfate (Morphine 2 Mg/1 Ml Inj) 2 mg IV Q4H PRN PRN Reason: Pain, Moderate (4-6) Ondansetron HCl (Ondansetron 4 Mg/2 Ml Inj) 4 mg IV Q8H PRN PRN Reason: Nausea And Vomiting Oxycodone/Acetaminophen (Oxycodone /Acetaminophen 5-325mg Tab) 1 tab PO Q6HR PRN PRN Reason: Pain, Moderate (4-6) Sodium Chloride (Sodium Chloride 0.9% 10 Ml Flush Syringe) 10 ml IV BID [facility] Last Admin: 06/17/22 10:22 Dose: 10 ml Sodium Chloride (Sodium Chloride 0.9% 10 Ml Flush Syringe) 10 ml IV PRN PRN PRN Reason: LINE FLUSH Spironolactone (Spironolactone 50 Mg Tab) 50 mg PO QDAY [facility] Last Admin: 06/17/22 10:16 Dose: 50 mg Review of Systems Constitutional: weakness, no weight loss Cardiovascular: no chest pain, no orthopnea, no palpitations, no edema Respiratory: no cough Gastrointestinal: no abdominal pain Genitourinary Male: no dysuria Integumentary: no rash Neurological: other (Right-sided weakness which is resolved ) Psychiatric: no anxiety Hematologic/Lymphatic: easy bleeding, other (No bleeding with apixaban) Physical Examination Vital Signs Temp Pulse Resp BP Pulse Ox 97.9 F 120 H 17 145/107 98 06/16/22 16:35 06/16/22 16:35 06/16/22 16:35 06/16/22 16:35 06/16/22 16:35 General appearance: no acute distress HEENT: Positive: Normocephaly, Mucus Membranes Moist Neck: Positive: neck supple Cardiac: Positive: irregularly irregular, S1/S2. Negative: Audible Murmur Lungs: Positive: clear to auscultation, No Wheeze, Rales, Rhonchi Neuro: Positive: Grossly Intact Abdomen: Positive: Soft Skin: Positive: Clear Extremities: Present: edema (Trace) Results 06/17/22 05:29 06/17/22 05:29 Cardiac Enzymes 06/16/22 06/17/22 Range/Units 16:59 05:29 AST 12 12 (5-40) units/L CK-MB (CK-2) 3.0 (0.0-4.0) ng/mL Coagulation 06/16/22 Range/Units 16:59 PT 17.5 H (12.2-14.9) Sec. INR 1.28 H (0.87-1.13) APTT 33.5 (24.2-36.6) Sec. Lipids 06/17/22 Range/Units 08:53 Triglycerides 76 (2-149) mg/dL Cholesterol 158 (50-199) mg/dL HDL Cholesterol 38 L (40-59) mg/dL Cholesterol/HDL Ratio 4.15 % CBC 06/16/22 06/17/22 Range/Units 16:59 05:29 WBC 5.2 5.5 (4.5-11.0) K/mm3 RBC 4.60 4.94 (3.65-5.03) M/mm3 Hgb 13.8 14.4 (11.8-15.2) gm/dl Hct 43.0 46.0 H (35.5-45.6) % Plt Count 177 188 (140-440) K/mm3 Lymph # (Auto) 1.1 L 1.8 (1.2-5.4) K/mm3 [place] # (Auto) 0.7 0.8 (0.0-0.8) K/mm3 Eos # (Auto) 0.2 0.1 (0.0-0.4) K/mm3 Baso # (Auto) 0.0 0.0 (0.0-0.1) K/mm3 Comprehensive Metabolic Panel 06/16/22 06/17/22 Range/Units 16:59 05:29 Sodium 137 141 (137-145) mmol/L Potassium 4.7 4.4 (3.6-5.0) mmol/L Chloride 101.5 104.2 (98-107) mmol/L Carbon Dioxide 19 L 24 (22-30) mmol/L BUN 48 H 46 H (9-20) mg/dL Creatinine 2.4 H 2.7 H (0.8-1.3) mg/dL Glucose 118 H 98 (75-100) mg/dL Calcium 9.3 9.7 (8.4-10.2) mg/dL AST 12 12 (5-40) units/L ALT 11 10 (7-56) units/L Alkaline Phosphatase 92 88 (35-129) units/L Total Protein 7.5 7.5 (6.3-8.2) g/dL Albumin 3.8 L 4.0 (3.9-5) g/dL EKG interpretations - Telemetry EKG Rhythm: Atrial Fibrillation - EKG Supraventricular dysrhythmia: atrial fibrillation Chamber hypertrophy or enlargement: left ventricular hypertro Repolarization changes or abnormalities: repolarization abn secondary to ventricular hypertrophy Assessment and Plan - Patient Problems (1) PFO with atrial septal aneurysm Current Visit: Yes Status: Acute Plan to address problem: Patient's symptoms suggests a possible TIA but we do not have any objective evidence like MRI to confirm it. His CT scan was negative for acute stroke. We will await neurology input. With the patient had TIA, it is probably multifactorial given his very low EF, atrial fibrillation risk factors of hypertension diabetes and CKD. I am not so sure how much PFO is contributing to his stroke. If there is an evidence of DVT or a cortical infarct on MRI then there may be some benefit for PFO closure after ruling out left atrial appendage thrombus and defining the PFO with JASON. We will obtain an echocardiogram with contrast to see if there is any LV thrombus given his very low EF even though echo was performed within 6 months. Please obtain an ultrasound of his legs to rule out any DVTs. He has the ICD device placed in 2013 which is incompatible with MRI. Since the patient had a TIA on aspirin and apixaban, we will switch aspirin with Plavix pending neurology recommendation. (2) Atrial fibrillation with RVR Current Visit: Yes Status: Chronic Plan to address problem: Patient's rate has been controlled most of the time. We will continue same home medications for now. We will continue to monitor the rates on telemetry. C ontinue anticoagulation with apixaban. (3) Chronic systolic CHF (congestive heart failure) Current Visit: No Status: Chronic Plan to address problem: Patient is not in acute heart failure. Continue home medications.
--- NOTE | 2022-06-17 14:03 | Vascular Lab Report ---
DUPLEX DOPPLER LOWER EXTREMITY VEINS, BILATERAL INDICATION / CLINICAL INFORMATION: Evaluate for possible DVT. Lower extremity pain swelling. TECHNIQUE: Duplex doppler imaging was performed through the veins of both lower extremities using venous nichelle vazquez and other maneuvers. COMPARISON: None available. FINDINGS: Right Common Femoral vein: Negative. Right Femoral vein: Negative. Right Popliteal vein: Negative. Right Calf veins: Negative. Left Common Femoral vein: Negative. Left Femoral vein: Negative. Left Popliteal vein: Negative. Left Calf veins: Negative. Additional findings: None. IMPRESSION: 1. No sonographic evidence for DVT in either lower extremity. Signer Name: Josemanuel Pinto MD Signed: 06/17/2022 1:58 PM Workstation Name: [id number]
--- NOTE | 2022-06-17 14:44 | Consultation ---
History of Present Illness - Reason for Consult Consult date: 06/17/22 chronic renal failure - History of Present Illness 67-year-old man withtype 2 diabetes, CHF, hypertension and gout comes in for right upper and right lower extremity weakness which resolved in ED. Notes that recently had Lasix dose increased to 80mg. He does follow with Dr. Sánchez for CKD, last seen in 04/2022 with creatinine 2.3. CKD thought to be related to HTN, DM, gout/hyperuricemia. Of note, he is supposed to see hematology/oncology for abnormal SPEP. At time of consult, he denies any concerns, no dyspnea, chest pain, edema. Notes good appetite. No longer feeling weak. Past History Past Medical History: atrial fib, diabetes, heart failure, hypertension, pu lmonary embolism, renal failure Past Surgical History: hernia repair, Other (Cardiac defibrillator) Social history: denies: smoking Family history: no significant family history Medications and Allergies Allergies Allergy/AdvReac Type Severity Reaction Status Date / Time Penicillins AdvReac Faints Verified 06/17/22 11:26 Home Medications Medication Instructions Recorded Confirmed Last Taken Type Acetaminophen [Acetaminophen TAB] 650 mg PO Q4H PRN #15 tablet 08/05/18 06/17/22 06/15/22 Rx Apixaban [Eliquis] 5 mg PO Q12HR #60 tablet 04/22/22 06/17/22 06/16/22 Rx Aspirin [Aspirin BABY CHEW TAB] 81 mg PO QDAY #30 tab.chew 04/22/22 06/17/22 06/16/22 Rx allopurinoL [Zyloprim] 100 mg PO QDAY #30 tab 04/22/22 06/17/22 06/16/22 Rx glipiZIDE [Glucotrol] 10 mg PO BID #60 tab 04/22/22 06/17/22 06/16/22 Rx lisinopriL [Zestril TAB] 40 mg PO QDAY #30 tablet 04/22/22 06/17/22 06/16/22 Rx Furosemide [Lasix TAB] 80 mg PO BID 3 Days #6 tab NS 06/16/22 06/17/22 06/15/22 Rx Bimatoprost [Lumigan] 1 drop OU QHS 06/17/22 06/17/22 06/15/22 History Multivitamin 1 each PO QDAY 06/17/22 06/17/22 06/16/22 History carvediloL [Coreg] 25 mg PO BID 06/17/22 06/17/22 06/16/22 History Active Meds: Active Medications Acetaminophen (Acetaminophen 325 Mg Tab) 650 mg PO Q4H PRN PRN Reason: Pain MILD(1-3)/Fever >100.5/MIX Albuterol (Albuterol 2.5 Mg/3 Ml Nebu) 2.5 mg IH Q4HRT PRN PRN Reason: Shortness Of Breath Allopurinol (Allopurinol 100 Mg Tab) 100 mg PO QDAY [facility] Last Admin: 06/17/22 10:16 Dose: 100 mg Apixaban (Apixaban 5 Mg Tab) 5 mg PO Q12HR [facility] Last Admin: 06/17/22 10:16 Dose: 5 mg Atorvastatin Calcium (Atorvastatin 40 Mg Tab) 40 mg PO QHS [facility] Last Admin: 06/16/22 23:23 Dose: Not Given Carvedilol (Carvedilol 12.5 Mg Tab) 12.5 mg PO BID [facility] Last Admin: 06/17/22 10:16 Dose: 12.5 mg Clopidogrel Bisulfate (Clopidogrel 75 Mg Tab) 75 mg PO QDAY [facility] Colchicine (Colchicine 0.6 Mg Tab) 0.6 mg PO QDAY [facility] Last Admin: 06/17/22 10:22 Dose: Not Given Cyclobenzaprine HCl (Cyclobenzaprine 10 Mg Tab) 5 mg PO TID PRN PRN Reason: Muscle Spasm Fluticasone Propionate (Fluticasone Propionate Nasal [place] 16 Gm) 50 mcg NS QDAY [facility] Last Admin: 06/17/22 10:23 Dose: Not Given Furosemide (Furosemide 40 Mg Tab) 40 mg PO BID [facility] Last Admin: 06/17/22 10:16 Dose: 40 mg Glipizide (Glipizide 10 Mg Tab) 10 mg PO BIDDIAB [facility] Last Admin: 06/17/22 10:16 Dose: 10 mg Insulin Human Lispro (Insulin Lispro 100 Unit/Ml) 0 unit SUB-Q [facility]; Protocol Last Admin: 06/17/22 13:57 Dose: 3 unit Lisinopril (Lisinopril 40 Mg Tab) 40 mg PO QDAY [facility] Last Admin: 06/17/22 10:16 Dose: 40 mg Metoclopramide HCl (Metoclopramide 10 Mg/2 Ml Inj) 10 mg IV Q6H PRN PRN Reason: Nausea And Vomiting Morphine Sulfate (Morphine 2 Mg/1 Ml Inj) 2 mg IV Q4H PRN PRN Reason: Pain, Moderate (4-6) Ondansetron HCl (Ondansetron 4 Mg/2 Ml Inj) 4 mg IV Q8H PRN PRN Reason: Nausea And Vomiting Oxycodone/Acetaminophen (Oxycodone /Acetaminophen 5-325mg Tab) 1 tab PO Q6HR PRN PRN Reason: Pain, Moderate (4-6) Sodium Chloride (Sodium Chloride 0.9% 10 Ml Flush Syringe) 10 ml IV BID [facility] Last Admin: 06/17/22 10:22 Dose: 10 ml Sodium Chloride (Sodium Chloride 0.9% 10 Ml Flush Syringe) 10 ml IV PRN PRN PRN Reason: LINE FLUSH Spironolactone (Spironolactone 50 Mg Tab) 50 mg PO QDAY [facility] Last Admin: 06/17/22 10:16 Dose: 50 mg Review of Systems All systems: negative (as per HPI) Exam - Vital Signs Vital signs: Vital Signs Temp Pulse Resp BP Pulse Ox 97.9 F 120 H 17 145/107 98 06/16/22 16:35 06/16/22 16:35 06/16/22 16:35 06/16/22 16:35 06/16/22 16:35 - General Appearance General appearance: well-developed, well-nourished EENT: ATNC Neck: Present: neck supple Respiratory: Clear to Ascultation Heart: regular, S1S2 Gastrointestinal: Present: normoactive bowel sounds Integumentary: no rash, warm and dry Neurologic: no focal deficit, no asterixis Results - Lab Results 06/17/22 05:29 06/17/22 05:29 Most recent lab results Calcium 9.7 mg/dL (8.4-10.2) 06/17/22 05:29 Assessment and Plan # Acute Kidney Injury in Chronic Kidney Disease: creatinine fairly stable at 2.7, outpatient baseline appears around 2.3/2.4. Note contrast use 06/17 - continue home medications, ok to continue ROWAN/ARB, MRA from renal standpoint - IVF prn, encourage po hydration/nutrition - would recommend colchicine prn only, on allopurinol for urate lower therapy and gout prevention - supportive measures per primary - no further workup at this time - avoid nephrotoxins - BP, DM control # Possible TIA: CT head, angio reviewed. Neurology input noted. # CHF with ICD: cardiology input noted # HTN: BP stable on current regimen # DM
[2022-06-18 07:32] LABS: Calcium 9.2 mg/dL (8.4-10.2)
[2022-06-18 08:43] VITALS: BP 102/83
[2022-06-18] MEDS: APIXABAN 5 MG TAB PO SCH (09:59)
[2022-06-18] MEDS ORDERED: CLOPIDOGREL 75 MG TAB PO SCH (10:00)
[2022-06-18] MEDS: LISINOPRIL 40 MG TAB PO SCH (10:00)
[2022-06-18] MEDS: COLCHICINE 0.6 MG TAB PO SCH (10:00)
[2022-06-18] MEDS: allopurinoL 100 MG TAB PO SCH (10:00)
[2022-06-18] MEDS: glipiZIDE 10 MG TAB PO SCH (10:00)
[2022-06-18] MEDS: FLUTICASONE PROPIONATE NASAL SPRAY 16 GM NS SCH (10:01)
[2022-06-18] MEDS: carvediloL 12.5 MG TAB PO SCH (10:01)
[2022-06-18] MEDS: SPIRONOLACTONE 50 MG TAB PO SCH (10:02)
[2022-06-18] MEDS: FUROSEMIDE 40 MG TAB PO SCH (10:04)
--- NOTE | 2022-06-18 10:21 | Discharge Summary ---
Providers - Providers Date of Admission: 06/16/22 21:13 Date of discharge: 06/18/22 Attending physician: AARON MIRAMONTES MD 06/16/22 21:13 Consult to Physician [CONS] Routine Comment: Consulting Provider: TOÑO CLINE Physician Instructions: Reason For Exam: TIA 06/16/22 21:18 Occupational Therapy Evaluate and Treat [CONS] Routine Comment: Reason For Exam: Neuro deficits Physical Therapy Evaluation and Treat [CONS] Routine Comment: Reason For Exam: Neuro deficits 06/17/22 07:26 Consult to Physician [CONS] Routine Comment: Consulting Provider: RAMILA IVORY Physician Instructions: Reason For Exam: EELAZAR/CKD 06/17/22 09:49 Consult to Physician [CONS] Routine Comment: Consulting Provider: KARL PICKETT Physician Instructions: Reason For Exam: Possible PFO closure Primary care physician: TWISTER FRAME TENDER Hospitalization Reason for admission: TIA. Condition: Stable Pertinent studies: Reviewed. Procedures: None. Hospital course: Patient is a 67-year-old male past medical history of chronic heart failure status post defibrillator placement, chronic kidney disease (stage V), hypertension, gout, atrial fibrillation on Eliquis, and [id number] type 2 diabetes mellitus who presented with weakness of his right lower extremity and difficulty walking in addition to leaning over to his right side frequently. The patient had presented to the ED the night before for chest pain that have resolved. Patient endorses being compliant with his medications. In the ED, the patient was found to be hemodynamically stable with an elevated blood pressure of 145/108 and tachycardic to 120. Tele-neurology was consulted due to concerns for acute ischemic CVA. The patient was not a candidate for tPA. The patient was admitted for further work-up. Patient underwent CT head noncontrast and CT angio head and neck that were unremarkable for acute abnormality. Prior TTE (January 2022) revealed an EF of 15-25% and was remarkable for PFO. She underwent bilateral lower extremity venous Dopplers to evaluate for possible DVT that were found to be unremarkable. Cardiology and neurology were consulted for further management. Patient describes his symptoms today are completely resolved. Due to the patient not having any DVT, the decision was made to replace his aspirin 81 mg daily with Plavix 75 mg daily while continuing his Eliquis 5 mg twice daily. Patient expresses understanding. Patient is medically clear for discharge. Disposition: 01 HOME / SELF CARE / HOMELESS Final Discharge Diagnosis (Prints w/discharge instructions): TIA, chronic systolic heart failure with defibrillator placement, atrial fibrillation on Eliquis, hypertension, bky-ovssbtd-esloaiivt type 2 diabetes mellitus, gout Time spent for discharge: 45 min Core Measure Documentation - Palliative Care Palliative Care/ Comfort Measures: Not Applicable - Core Measures Any of the following diagnoses?: history only Exam - Constitutional Vitals: Temp Pulse Resp BP Pulse Ox 98.0 F 72 18 102/83 99 06/18/22 07:28 06/18/22 07:28 06/18/22 04:13 06/18/22 10:02 06/18/22 07:28 General appearance: Present: no acute distress, well-nourished - EENT Eyes: Present: PERRL, EOM intact ENT: hearing intact, clear oral mucosa, dentition normal - Neck Neck: Present: supple, normal ROM - Respiratory Respiratory effort: normal Respiratory: bilateral: CTA - Cardiovascular Rhythm: regular Heart Sounds: Present: S1 & S2 - Extremities Extremities: no ischemia, pulses intact, pulses symmetrical, No edema, normal temperature, normal color, Full ROM Peripheral Pulses: within normal limits - Abdominal General gastrointestinal: Present: soft, non-tender, non-distended, normal bowel sounds Male genitourinary: Present: deferred - Rectal Rectal Exam: deferred - Integumentary Integumentary: Present: clear, warm, dry - Musculoskeletal Musculoskeletal: strength equal bilaterally - Psychiatric Psychiatric: appropriate mood/affect, memory intact, cooperative - Neurologic Neurologic: CNII-XII intact, moves all extremities - Allied Health Allied health notes reviewed: nursing Plan Activity: advance as tolerated Diet: low salt, diabetic Additional Instructions: Patient is a 67-year-old male past medical history of chronic heart failure status post defibrillator placement, chronic kidney disease (stage V), hypertension, gout, atrial fibrillation on Eliquis, and teq-rhwbiyy-kvgzuglxi type 2 diabetes mellitus who presented with weakness of his right lower extremity and difficulty walking in addition to leaning over to his right side frequently. The patient had presented to the ED the night before for chest pain that have resolved. Patient endorses being compliant with his medications. In the ED, the patient was found to be hemodynamically stable with an elevated blood pressure of 145/108 and tachycardic to 120. Tele-neurology was consulted due to concerns for acute ischemic CVA. The patient was not a candidate for tPA. The patient was admitted for further work-up. Patient underwent CT head noncontrast and CT angio head and neck that were unremarkable for acute abnormality. Prior TTE (January 2022) revealed an EF of 15-25% and was remarkable for PFO. She underwent bilateral lower extremity venous Dopplers to evaluate for possible DVT that were found to be unremarkable. Cardiology and neurology were consulted for further management. Patient describes his symptoms today are completely resolved. Due to the patient not having any DVT, the decision was made to replace his aspirin 81 mg daily with Plavix 75 mg daily while continuing his Eliquis 5 mg twice daily. Patient expresses understanding. Patient is medically clear for discharge. Care Plan Goals: Patient is medically clear for discharge. Assessment: Patient is a 67-year-old male past medical history of chronic heart failure status post defibrillator placement, chronic kidney disease (stage V), hypertension, gout, atrial fibrillation on Eliquis, and sox-kzobeat-dkpbnjoqa type 2 diabetes mellitus who presented with weakness of his right lower extremity and difficulty walking in addition to leaning over to his right side frequently. The patient had presented to the ED the night before for chest pain that have resolved. Patient endorses being compliant with his medications. In the ED, the patient was found to be hemodynamically stable with an elevated blood pressure of 145/108 and tachycardic to 120. Tele-neurology was consulted due to concerns for acute ischemic CVA. The patient was not a candidate for tPA. The patient was admitted for further work-up. Patient underwent CT head noncontrast and CT angio head and neck that were unremarkable for acute abnormality. Prior TTE (January 2022) revealed an EF of 15-25% and was remarkable for PFO. She underwent bilateral lower extremity venous Dopplers to evaluate for possible DVT that were found to be unremarkable. Cardiology and neurology were consulted for further management. Patient describes his symptoms today are completely resolved. Due to the patient not having any DVT, the decision was made to replace his aspirin 81 mg daily with Plavix 75 mg daily while continuing his Eliquis 5 mg twice daily. Patient expresses understanding. Patient is medically clear for discharge. Follow up with: PRIMARY MD RAMSES [Primary Care Provider] - 3-5 Days Prescriptions: Clopidogrel [Plavix] 75 mg PO QDAY #30 tablet
--- NOTE | 2022-06-18 14:07 | Progress Note ---
Assessment and Plan # Acute Kidney Injury in Chronic Kidney Disease: creatinine fairly stable at 2.7->2.4, outpatient baseline appears around 2.3/2.4. Note contrast use 06/17 - continue home medications, ok to continue ROWAN/ARB, MRA from renal standpoint - IVF prn, encourage po hydration/nutrition - would recommend colchicine prn only, on allopurinol for urate lower therapy and gout prevention - supportive measures per primary - no further workup at this time - avoid nephrotoxins - BP, DM control - Outpatient CKD follow up on discharge # Possible TIA: CT head, angio reviewed. Neurology input noted. # CHF with ICD: cardiology input noted # HTN: BP stable on current regimen # DM Subjective Date of service: 06/18/22 Interval history: Resting in bed this AM Objective - Exam Narrative Exam: General appearance: well-developed, well-nourished EENT: ATNC Neck: Present: neck supple Respiratory: Clear to Ascultation Heart: regular, S1S2 Gastrointestinal: Present: normoactive bowel sounds Integumentary: no rash, warm and dry Neurologic: no focal deficit, no asterixis - Vital Signs Vital signs: Vital Signs - 12hr 06/18/22 06/18/22 06/18/22 04:13 07:28 10:00 Temperature 97.7 F 98.0 F Pulse Rate 55 L 72 72 Respiratory 18 22 Rate Blood Pressure 96/66 102/83 O2 Sat by Pulse 97 99 99 Oximetry 06/18/22 06/18/22 10:01 10:02 Temperature Pulse Rate Respiratory Rate Blood Pressure 102/83 102/83 O2 Sat by Pulse Oximetry - Lab 06/17/22 05:29 06/18/22 06:24 Most recent lab results Calcium 9.2 mg/dL (8.4-10.2) 06/18/22 06:24 Medications & Allergies - Medications Allergies/Adverse Reactions: Allergies Penicillins Adverse Reaction (Verified 06/17/22 11:26) Faints Home Medications: Home Medications Medication Instructions Recorded Confirmed Last Taken Type Acetaminophen [Acetaminophen TAB] 650 mg PO Q4H PRN #15 tablet 08/05/18 06/17/22 06/15/22 Rx Apixaban [Eliquis] 5 mg PO Q12HR #60 tablet 04/22/22 06/17/22 06/16/22 Rx allopurinoL [Zyloprim] 100 mg PO QDAY #30 tab 04/22/22 06/17/22 06/16/22 Rx glipiZIDE [Glucotrol] 10 mg PO BID #60 tab 04/22/22 06/17/22 06/16/22 Rx lisinopriL [Zestril TAB] 40 mg PO QDAY #30 tablet 04/22/22 06/17/22 06/16/22 Rx Furosemide [Lasix TAB] 80 mg PO BID 3 Days #6 tab NS 06/16/22 06/17/22 06/15/22 Rx Bimatoprost [Lumigan] 1 drop OU QHS 06/17/22 06/17/22 06/15/22 History Multivitamin 1 each PO QDAY 06/17/22 06/17/22 06/16/22 History carvediloL [Coreg] 25 mg PO BID 06/17/22 06/17/22 06/16/22 History Clopidogrel [Plavix] 75 mg PO QDAY #30 tablet 06/18/22 Unknown Rx Furosemide [Lasix TAB] 40 mg PO QDAY #30 tablet 06/18/22 Unknown Rx Active Medications: Generic Name Dose Route Start Last Admin Trade Name Freq PRN Reason Stop Dose Admin Acetaminophen 650 mg 06/16/22 21:13 06/17/22 15:56 Acetaminophen 325 Mg Tab PO 650 mg Q4H PRN Administration Pain MILD(1-3)/Fever >100.5/MIX Albuterol 2.5 mg 06/16/22 21:25 Albuterol 2.5 Mg/3 Ml Nebu IH Q4HRT PRN Shortness Of Breath Allopurinol 100 mg 06/17/22 10:00 06/18/22 10:00 Allopurinol 100 Mg Tab PO 100 mg QDAY COLTON Administration Apixaban 5 mg 06/16/22 22:00 06/18/22 09:59 Apixaban 5 Mg Tab PO 5 mg Q12HR COLTON Administration Atorvastatin Calcium 40 mg 06/16/22 22:00 06/17/22 21:19 Atorvastatin 40 Mg Tab PO 40 mg QHS COLTON Administration Carvedilol 12.5 mg 06/16/22 22:00 06/18/22 10:01 Carvedilol 12.5 Mg Tab PO 12.5 mg BID COLTON Administration Clopidogrel Bisulfate 75 mg 06/18/22 10:00 06/18/22 09:59 Clopidogrel 75 Mg Tab PO 75 mg QDAY COLTON Administration Colchicine 0.6 mg 06/17/22 10:00 06/18/22 10:00 Colchicine 0.6 Mg Tab PO 0.6 mg QDAY COLTON Administration Cyclobenzaprine HCl 5 mg 06/16/22 21:29 Cyclobenzaprine 10 Mg Tab PO TID PRN Muscle Spasm Fluticasone Propionate 50 mcg 06/17/22 10:00 06/18/22 10:01 Fluticasone Propionate Nasal [place] 16 Gm NS 50 mcg QDAY COLTON Administration Furosemide 40 mg 06/16/22 22:00 06/18/22 10:04 Furosemide 40 Mg Tab PO Not Given BID COLTON Glipizide 10 mg 06/16/22 22:00 06/18/22 10:00 Glipizide 10 Mg Tab PO 10 mg BIDDIAB COLTON Administration Insulin Human Lispro 0 unit 06/16/22 22:00 06/17/22 21:19 Insulin Lispro 100 Unit/Ml SUB-Q 6 unit ACHS COLTON Administration Protocol Lisinopril 40 mg 06/17/22 10:00 06/18/22 10:00 Lisinopril 40 Mg Tab PO Not Given QDAY COLTON Metoclopramide HCl 10 mg 06/16/22 21:13 Metoclopramide 10 Mg/2 Ml Inj IV Q6H PRN Nausea And Vomiting Morphine Sulfate 2 mg 06/16/22 21:13 Morphine 2 Mg/1 Ml Inj IV Q4H PRN Pain, Moderate (4-6) Ondansetron HCl 4 mg 06/16/22 21:13 Ondansetron 4 Mg/2 Ml Inj IV Q8H PRN Nausea And Vomiting Oxycodone/Acetaminophen 1 tab 06/16/22 21:07 Oxycodone /Acetaminophen 5-325mg Tab PO Q6HR PRN Pain, Moderate (4-6) Sodium Chloride 10 ml 06/16/22 22:00 06/17/22 21:18 Sodium Chloride 0.9% 10 Ml Flush Syringe IV 10 ml BID COLTON Administration Sodium Chloride 10 ml 06/16/22 21:13 Sodium Chloride 0.9% 10 Ml Flush Syringe IV PRN PRN LINE FLUSH Spironolactone 50 mg 06/17/22 10:00 06/18/22 10:02 Spironolactone 50 Mg Tab PO 50 mg QDAY COLTON Administration
== END 2022-06-18 16:10 | disposition home or self-care (01) ==
LOC: ED 16:19 → 4A 21:13 → INTOOBSV 21:13 → 4A 23:20
PROVIDERS: ADMIT Internal Medicine; ATTEND Student in an Organized Health Care Education/Training Program
DX: G45.9 Transient cerebral ischemic attack, unspecified (principal); I13.0 Hypertensive heart and chronic kidney disease with heart failure and stage 1 through stage 4 chronic kidney disease, or unspecified chronic kidney disease; E11.22 Type 2 diabetes mellitus with diabetic chronic kidney disease; I50.22 Chronic systolic (congestive) heart failure; N18.9 Chronic kidney disease, unspecified; N17.9 Acute kidney failure, unspecified; I48.91 Unspecified atrial fibrillation; I26.99 Other pulmonary embolism without acute cor pulmonale; Z79.01 Long term (current) use of anticoagulants; Z79.899 Other long term (current) drug therapy
CPT/HCPCS: 36415; 70450; 70496; 70498; 80048; 80053; 80061; 80307; 82550; 82553; 82962; 83036; 84484; 85025; 85610; 85670; 85730; 93005; 93970; 94640; 96372; 97166; 99285; C8929; G0378; Q9967; 93306; J1815

== ENCOUNTER 2022-07-14 09:23 | Outpatient (CLI) | payer MEDICARE ==
--- NOTE | 2022-07-14 13:26 | XRay Report ---
BONE SURVEY METASTATIC INDICATION: D47.2 MONOCLONAL PARAPROTEINEMIA. COMPARISON: None. IMPRESSION: Multiple views of the axial and proximal appendicular skeleton are presented. No areas of abnormal bony production or destruction are identified. There are mild diffuse degenerative change s throughout the spine. 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 There are 3 calcifications in the right upper quadrant entering up to 1.3 cm which could represent gallstones or possibly renal stones. Signer Name: Jet Pinzon Jr, MD Signed: 07/14/2022 1:22 PM Workstation Name: [id number]
== END 2022-07-14 09:24 | disposition home or self-care (01) ==
LOC: XRAY 09:23
PROVIDERS: ATTEND Internal Medicine Hematology & Oncology
DX: M47.819 Spondylosis without myelopathy or radiculopathy, site unspecified (principal); D47.2 Monoclonal gammopathy
CPT/HCPCS: 77074

== ENCOUNTER 2022-07-21 10:00 | Outpatient (CLI) | payer MEDICARE | END 2022-07-21 10:01 | disposition home or self-care (01) | LOC: CT 10:00 | PROVIDERS: ATTEND Internal Medicine Hematology & Oncology | DX: Z86.711 Personal history of pulmonary embolism (principal) | CPT/HCPCS: 36415; 82565; 84520 ==